=== PATIENT | male | born 1950 | race Two or more races ===

== ENCOUNTER → 2019-05-13 | Emergency (ER) | payer OTHER ==
[~2019-05-13] VITALS: Ht 167.6 cm; Wt 72.6 kg
[~2019-05-13] MED LIST: ALOG25TA OR; AMLO5TAB15 PO; ATEN-60 PO; ATOR40TA52 PO; BENA20TA14 PO; CARV6.2551 PO; CLOB0.055 TOP; CLOP75TA41 PO; FENO160T8 PO; FLUO0.059 TOP; GABA300C10 PO; GEMF600T7 PO; HYDR25TA4 PO; INSUINJ32 SC; KETOROLAC TROMETH 15 mg/ml 1ML VL IV ONE; MORPHINE SULFATE 4 MG/ML SYR/VIAL IV ONE; OMEGCAP2 OR; ONDANSETRON HCL 4 MG/2 ML VIAL IV ONE; cloNIDine HCL 0.1 MG TAB PO ONE; hydrALAZINE HCL 20 MG/ML VL IV ONE
[2019-05-13 15:47] LABS: Basophils # (auto) 0.1 10 ^3/uL (0-0.2); Lymphocytes # (auto) 1.8 10 ^3/uL (0.4-5.4); Mean Corpuscular Volume 93.5 fL (80.0-100.0); Monocytes # (auto) 1.6 10 ^3/uL (0-1.3); Neutrophils # (auto) 14.8 10 ^3/uL (1.6-8.6); White Blood Cell 18.6 10^3/uL (4.4-10.8)
[2019-05-13 15:50] LABS: Basophils % (auto) 0.8 % (0.0-2.0); Eosinophils # (auto) 0.2 10 ^3/uL (0-0.8); Eosinophils % (auto) 1.2 % (0.0-7.0); Hematocrit 44.4 % (41.0-53.0); Hemoglobin 14.8 g/dL (13.5-17.5); Lymphocytes % (auto) 9.7 % (10.0-50.0); Mean Corpuscular Hemoglobin 31.1 pg (28.0-32.0); Mean Corpuscular Hgb Conc. 33.3 g/dL (32.0-36.0); Monocytes % (auto) 8.4 % (0.0-12.0); Neutrophils % (auto) 79.9 % (37.0-80.0); Nucleated Red Blood Cells % 0.2 %; Platelet Count (auto) 514 10^3/uL (140-450); Red Blood Cells 4.75 10^6/uL (4.5-5.90); Red Cell Distribution Width 12.7 % (11.8-14.3)
[2019-05-13 16:07] LABS: Albumin 2.1 g/dL (3.4-5.0); Anion Gap 10 (5-15); Blood Urea Nitrogen 35 mg/dL (7-18); Calcium 9.3 mg/dL (8.5-10.1); Carbon Dioxide 22 mmol/L (21-32); Chloride 105 mmol/L (98-107); Glucose 264 mg/dL (74-106); Potassium 4.2 mmol/L (3.5-5.1); Sodium 137 mmol/L (136-145)
[2019-05-13 16:12] LABS: Alanine Aminotransferase 25 U/L (16-61); Alkaline Phosphatase 95 U/L (45-117); Aspartate Aminotransferase 21 U/L (15-37); BUN/Creatinine Ratio 29.9; Bilirubin, Total 0.5 mg/dL (0.2-1.0); GFR African American 80 mL/min; GFR Non-African American 66 mL/min; Total Protein 8.4 g/dL (6.4-8.2)
[2019-05-13 18:07] VITALS: BP 186/85
== END | disposition home or self-care (01) ==
LOC: EDBD 13:53 → EDUNIT# 13:53 → ER 13:57
DX: M54.42 Lumbago with sciatica, left side (principal); D72.829 Elevated white blood cell count, unspecified; I10 Essential (primary) hypertension; E11.9 Type 2 diabetes mellitus without complications; E78.5 Hyperlipidemia, unspecified; F17.210 Nicotine dependence, cigarettes, uncomplicated; Z86.73 Personal history of transient ischemic attack (TIA), and cerebral infarction without residual deficits; Z88.0 Allergy status to penicillin; Z79.01 Long term (current) use of anticoagulants; Z79.4 Long term (current) use of insulin; Z79.899 Other long term (current) drug therapy
CPT/HCPCS: 36415; 72131; 72192; 80053; 84484; 85025; 85379; 93005; 96374; 96375; 99285; J0360; J1885; J2270; J2405

== ENCOUNTER 2019-05-26 16:36 | Inpatient (IN) | payer OTHER ==
[~2019-05-26] VITALS: Ht 170.2 cm; Wt 96.3 kg
[~2019-05-26 16:36] MED LIST changes: -KETOROLAC TROMETH 15 mg/ml 1ML VL IV ONE; -MORPHINE SULFATE 4 MG/ML SYR/VIAL IV ONE; -ONDANSETRON HCL 4 MG/2 ML VIAL IV ONE; -cloNIDine HCL 0.1 MG TAB PO ONE; -hydrALAZINE HCL 20 MG/ML VL IV ONE
[2019-05-26 19:46] LABS: Mean Corpuscular Hemoglobin 31.8 pg (28.0-32.0)
[2019-05-26 19:47] LABS: Hematocrit 40.9 % (41.0-53.0); Hemoglobin 14.3 g/dL (13.5-17.5); Mean Corpuscular Volume 90.9 fL (80.0-100.0); Platelet Count (auto) 499 10^3/uL (140-450); Red Cell Distribution Width 12.9 % (11.8-14.3)
[2019-05-26 19:53] LABS: Basophils % (manual) 0 (0.0-2.0); Blast Cells 0; Metamyelocytes % 0; Myelocytes % 0; Promyelocytes % 0; Reactive Lymphocytes 0
[2019-05-26 19:57] LABS: Urine Amorphous Crystal FEW /hpf (None Seen); Urine Bacteria FEW /hpf (None Seen); Urine Blood TRACE /uL (Negative); Urine Mucus FEW (None Seen); Urine Specific Gravity 1.021 (1.001-1.035); Urine Sperm PRESENT /hpf (None Seen); Urine WBC 3 /hpf (0 - 3)
[2019-05-26 20:03] LABS: Calcium 9.7 mg/dL (8.5-10.1); Magnesium 2.4 mg/dL (1.6-2.6); Potassium 4.6 mmol/L (3.5-5.1)
[2019-05-26 20:07] LABS: BUN/Creatinine Ratio 50.5; Bilirubin, Total 0.4 mg/dL (0.2-1.0)
[2019-05-26 20:30] LABS: Band Neutrophils % (manual) 4; Eosinophils % (manual) 2 (0-7); Lymphocytes % (manual) 5 (10.0-50.0); Monocytes % (manual) 9 (0-12)
[2019-05-26] MEDS ORDERED: cefTRIAXone 1GM/50ML D5W 50 ML IV ONE (21:30)
[2019-05-26] MEDS ORDERED: HYDROcodone-ACET 10/325MG TAB PO ONE (22:00)
[2019-05-26] MEDS ORDERED: DEXTROSE (50%) 50ML SYRG IV PRN (22:15)
[2019-05-26] MEDS ORDERED: MORPHINE SULFATE 4 MG/ML SYR/VIAL IV PRN (22:15)
[2019-05-26] MEDS ORDERED: HYDROcodone-ACET 5/325MG TAB PO PRN (22:15)
[2019-05-26] MEDS ORDERED: ACETAMINOPHEN 325 MG TAB PO PRN (22:15)
[2019-05-26] MEDS ORDERED: ONDANSETRON HCL 4 MG/2 ML VIAL IV PRN (22:15)
[2019-05-26] MEDS ORDERED: DOCUSATE SOD 100 MG CAP PO PRN (22:15)
[2019-05-26] MEDS: SODIUM CHLORIDE 0.9% 1,000 ML IV SCH (22:31)
[2019-05-26 23:13] VITALS: BP 146/88
[2019-05-26 23:30] VITALS: BP 146/88
[2019-05-27] MEDS: InsuLIN REG 1unit/0.01ml Soln (100units/ml) SC SCH ×6 (00:26→19:56)
[2019-05-27] MEDS: ATORVASTATIN 20 MG TAB PO SCH ×2 (01:05→20:36)
[2019-05-27] MEDS: ACCU-CHEK COMFORT CURVE STRIP VI SCH ×6 (01:07→19:54)
[2019-05-27] MEDS: GABAPENTIN 300 MG CAP PO SCH ×4 (01:34→20:36)
[2019-05-27 04:49] VITALS: BP 150/89
[2019-05-27 05:49] LABS: Basophils # (auto) 0.1 10 ^3/uL (0-0.2); Basophils % (auto) 0.5 % (0.0-2.0); Eosinophils # (auto) 0.2 10 ^3/uL (0-0.8); Eosinophils % (auto) 0.9 % (0.0-7.0); Hematocrit 40.8 % (41.0-53.0); Hemoglobin 13.9 g/dL (13.5-17.5); Lymphocytes # (auto) 2.1 10 ^3/uL (0.4-5.4); Lymphocytes % (auto) 10.4 % (10.0-50.0); Mean Corpuscular Hemoglobin 31.4 pg (28.0-32.0); Mean Corpuscular Hgb Conc. 34.1 g/dL (32.0-36.0); Mean Corpuscular Volume 92.1 fL (80.0-100.0); Monocytes # (auto) 2.1 10 ^3/uL (0-1.3); Monocytes % (auto) 10.6 % (0.0-12.0); Neutrophils # (auto) 15.5 10 ^3/uL (1.6-8.6); Neutrophils % (auto) 77.6 % (37.0-80.0); Platelet Count (auto) 433 10^3/uL (140-450); Red Blood Cells 4.43 10^6/uL (4.5-5.90); Red Cell Distribution Width 12.6 % (11.8-14.3)
[2019-05-27 06:08] LABS: Potassium 4.1 mmol/L (3.5-5.1)
[2019-05-27 06:12] LABS: BUN/Creatinine Ratio 54.3; Calcium 9.7 mg/dL (8.5-10.1)
[2019-05-27] MEDS: HCTZ 25 MG TAB PO SCH (06:23)
[2019-05-27 08:51] VITALS: BP 148/81
[2019-05-27] MEDS: amLODIPine BESYLATE 5 MG TAB PO SCH (09:57)
[2019-05-27] MEDS: CLOPIDOGREL BISULFATE 75 MG TAB PO SCH (09:57)
[2019-05-27] MEDS: LISINOPRIL 20 MG TAB PO SCH (09:58)
[2019-05-27] MEDS ORDERED: cefTRIAXone 1GM/50ML D5W 50 ML IV SCH (10:00)
[2019-05-27] MEDS ORDERED: ATENOLOL 25 MG TAB PO SCH (10:00)
[2019-05-27] MEDS ORDERED: GEMFIBROZIL 600 MG TAB PO SCH (10:00)
[2019-05-27] MEDS ORDERED: CARVEDILOL 3.125 MG TAB PO SCH (10:00)
[2019-05-27 12:48] VITALS: BP 120/62
[2019-05-27] MEDS: SODIUM CHLORIDE 0.9% 1,000 ML IV SCH ×2 (14:27→23:43)
[2019-05-27] MEDS ORDERED: VANCOMYCIN PER PHARMACY 0 MG IV SCH (15:30)
[2019-05-27 16:17] LABS: % Iron Saturation 16.8 % (20-55)
[2019-05-27 16:45] VITALS: BP 129/75
[2019-05-27] MEDS: ENOXAPARIN SOD 40 MG/0.4 ML SYRINGE SC SCH (17:15)
[2019-05-27] MEDS: VANCOMYCIN 1GM/250ML 250 ML IV SCH (17:16)
[2019-05-27] MEDS: MORPHINE SULF INJ 2 MG/ML SYRINGE 1ML IV PRN (20:32)
[2019-05-27 22:00] VITALS: BP 142/75
[2019-05-28] MEDS: ACCU-CHEK COMFORT CURVE STRIP VI SCH ×7 (00:13→23:58)
[2019-05-28] MEDS: InsuLIN REG 1unit/0.01ml Soln (100units/ml) SC SCH ×6 (00:15→21:28)
[2019-05-28 05:00] VITALS: BP 149/76
[2019-05-28 05:32] LABS: Basophils # (auto) 0.2 10 ^3/uL (0-0.2); Basophils % (auto) 0.9 % (0.0-2.0); Eosinophils # (auto) 0.4 10 ^3/uL (0-0.8); Eosinophils % (auto) 2.2 % (0.0-7.0); Hemoglobin 12.3 g/dL (13.5-17.5); Lymphocytes # (auto) 2.5 10 ^3/uL (0.4-5.4); Lymphocytes % (auto) 14.4 % (10.0-50.0); Mean Corpuscular Hemoglobin 31.7 pg (28.0-32.0); Mean Corpuscular Hgb Conc. 34.3 g/dL (32.0-36.0); Mean Corpuscular Volume 92.4 fL (80.0-100.0); Monocytes # (auto) 2.1 10 ^3/uL (0-1.3); Monocytes % (auto) 11.7 % (0.0-12.0); Neutrophils # (auto) 12.4 10 ^3/uL (1.6-8.6); Neutrophils % (auto) 70.8 % (37.0-80.0); Platelet Count (auto) 368 10^3/uL (140-450); Red Blood Cells 3.89 10^6/uL (4.5-5.90); Red Cell Distribution Width 12.8 % (11.8-14.3); White Blood Cell 17.6 10^3/uL (4.4-10.8)
[2019-05-28 05:46] LABS: INR 1.12 (0.9-1.15); Partial Thromboplastin Time 31.9 sec (23.64-32.05)
[2019-05-28 05:48] LABS: Albumin 1.6 g/dL (3.4-5.0); BUN/Creatinine Ratio 42.9; Calcium 9.3 mg/dL (8.5-10.1); Magnesium 2.1 mg/dL (1.6-2.6); Potassium 3.8 mmol/L (3.5-5.1); Uric Acid 9.4 mg/dL (3.5-7.2)
[2019-05-28] MEDS: GABAPENTIN 300 MG CAP PO SCH ×3 (05:54→21:31)
[2019-05-28 05:56] LABS: Bilirubin, Total 0.3 mg/dL (0.2-1.0); CRP High Sensitivity 13.7 mg/dL (< 0.3); Phosphorus 4.2 mg/dL (2.5-4.90); Total Protein 6.9 g/dL (6.4-8.2)
[2019-05-28] MEDS: HCTZ 25 MG TAB PO SCH (05:56)
[2019-05-28 08:43] LABS: Ferritin 605.8 ng/mL (10-322); Free T4 (Free Thyroxine) 0.67 ng/dL (0.89-1.76)
[2019-05-28 08:44] LABS: Folate (Folic Acid) 5.92 ng/mL (5.38-24)
[2019-05-28 09:06] VITALS: BP 148/76
[2019-05-28] MEDS: VANCOMYCIN 1GM/250ML 250 ML IV SCH (10:42)
[2019-05-28] MEDS: METOPROLOL SUCCINATE XL 50 MG TAB PO SCH (10:42)
[2019-05-28] MEDS: ENOXAPARIN SOD 40 MG/0.4 ML SYRINGE SC SCH (10:42)
[2019-05-28] MEDS: CLOPIDOGREL BISULFATE 75 MG TAB PO SCH (10:42)
[2019-05-28] MEDS: LISINOPRIL 20 MG TAB PO SCH (10:43)
[2019-05-28] MEDS: amLODIPine BESYLATE 5 MG TAB PO SCH (10:43)
[2019-05-28] MEDS: MORPHINE SULF INJ 2 MG/ML SYRINGE 1ML IV PRN (11:09)
[2019-05-28 13:00] VITALS: BP 154/68
[2019-05-28 16:30] VITALS: BP 158/89
[2019-05-28] MEDS: Glucerna Carbsteady SHAKE Vanilla 8oz PO SCH (18:00)
[2019-05-28] MEDS: SODIUM CHLORIDE 0.9% 1,000 ML IV SCH (18:43)
[2019-05-28] MEDS ORDERED: LORazepam 2MG/ML-1ML VIAL IV PRN (21:30)
[2019-05-28] MEDS: ATORVASTATIN 20 MG TAB PO SCH (21:31)
[2019-05-28 22:00] VITALS: BP 163/84
[2019-05-29] MEDS: InsuLIN REG 1unit/0.01ml Soln (100units/ml) SC SCH ×6 (00:03→22:17)
[2019-05-29] MEDS: VANCOMYCIN 1GM/250ML 250 ML IV SCH ×2 (03:51→22:17)
[2019-05-29] MEDS: ACCU-CHEK COMFORT CURVE STRIP VI SCH ×5 (04:02→20:18)
[2019-05-29 05:00] VITALS: BP 147/81
[2019-05-29] MEDS: GABAPENTIN 300 MG CAP PO SCH ×3 (05:33→21:00)
[2019-05-29] MEDS: HCTZ 25 MG TAB PO SCH (06:45)
[2019-05-29 07:42] LABS: Basophils # (auto) 0.1 10 ^3/uL (0-0.2); Basophils % (auto) 0.7 % (0.0-2.0); Eosinophils # (auto) 0.5 10 ^3/uL (0-0.8); Eosinophils % (auto) 3.2 % (0.0-7.0); Hematocrit 34.5 % (41.0-53.0); Hemoglobin 11.6 g/dL (13.5-17.5); Lymphocytes # (auto) 2.5 10 ^3/uL (0.4-5.4); Lymphocytes % (auto) 17.1 % (10.0-50.0); Mean Corpuscular Hemoglobin 31.3 pg (28.0-32.0); Mean Corpuscular Hgb Conc. 33.8 g/dL (32.0-36.0); Mean Corpuscular Volume 92.6 fL (80.0-100.0); Monocytes # (auto) 1.9 10 ^3/uL (0-1.3); Monocytes % (auto) 13.2 % (0.0-12.0); Neutrophils # (auto) 9.7 10 ^3/uL (1.6-8.6); Neutrophils % (auto) 65.8 % (37.0-80.0); Platelet Count (auto) 369 10^3/uL (140-450); Red Blood Cells 3.72 10^6/uL (4.5-5.90); Red Cell Distribution Width 12.8 % (11.8-14.3); White Blood Cell 14.7 10^3/uL (4.4-10.8)
[2019-05-29] MEDS: SODIUM CHLORIDE 0.9% 1,000 ML IV SCH ×2 (07:50→22:17)
[2019-05-29 07:59] LABS: BUN/Creatinine Ratio 32.2; Potassium 3.6 mmol/L (3.5-5.1)
[2019-05-29] MEDS: Glucerna Carbsteady SHAKE Vanilla 8oz PO SCH ×3 (08:10→17:50)
[2019-05-29 09:00] VITALS: BP 153/78
[2019-05-29] MEDS: amLODIPine BESYLATE 5 MG TAB PO SCH (10:15)
[2019-05-29] MEDS: CLOPIDOGREL BISULFATE 75 MG TAB PO SCH (10:15)
[2019-05-29] MEDS: LISINOPRIL 20 MG TAB PO SCH (10:16)
[2019-05-29] MEDS: ENOXAPARIN SOD 40 MG/0.4 ML SYRINGE SC SCH (10:16)
[2019-05-29] MEDS: METOPROLOL SUCCINATE XL 50 MG TAB PO SCH (10:16)
[2019-05-29] MEDS ORDERED: LEVOTHYROXINE SODIUM 50 MCG TAB PO ONE (12:45)
[2019-05-29 13:00] VITALS: BP 159/77
[2019-05-29 17:00] VITALS: BP 170/71
[2019-05-29] MEDS ORDERED: COLCHICINE 0.6 MG CAP PO ONE (17:00)
[2019-05-29] MEDS: cefTRIAXone 1GM/50ML D5W 50 ML IV SCH ×2 (17:50→18:05)
[2019-05-29] MEDS: ALLOPURINOL 100 MG TAB PO SCH (17:50)
[2019-05-29] MEDS: COLCHICINE 0.6 MG CAP PO SCH (17:50)
[2019-05-29 20:00] VITALS: BP 157/94
[2019-05-29] MEDS ORDERED: IOHEXOL 350 MG/ML 100ML IJ ONE (20:23)
[2019-05-29] MEDS: MORPHINE SULF INJ 2 MG/ML SYRINGE 1ML IV PRN (21:00)
[2019-05-29] MEDS: METOPROLOL TARTRATE 50 MG TAB PO SCH (21:01)
[2019-05-29] MEDS: ATORVASTATIN 20 MG TAB PO SCH (21:01)
[2019-05-29 22:00] VITALS: BP 164/84
[2019-05-30] VITALS (7 sets, daily range): BP systolic 146–156; BP diastolic 73–85
[2019-05-30] MEDS: ENOXAPARIN SOD 100 MG/1 ML SYRINGE SC SCH ×2 (01:53→13:09)
[2019-05-30] MEDS: ACCU-CHEK COMFORT CURVE STRIP VI SCH ×6 (01:53→21:21)
[2019-05-30] MEDS: InsuLIN REG 1unit/0.01ml Soln (100units/ml) SC SCH ×6 (01:54→21:23)
[2019-05-30] MEDS: COLCHICINE 0.6 MG CAP PO SCH ×2 (05:11→17:10)
[2019-05-30 05:54] LABS: Basophils # (auto) 0.2 10 ^3/uL (0-0.2); Basophils % (auto) 1.2 % (0.0-2.0); Eosinophils # (auto) 0.6 10 ^3/uL (0-0.8); Eosinophils % (auto) 3.5 % (0.0-7.0); Hemoglobin 11.8 g/dL (13.5-17.5); Lymphocytes # (auto) 2.6 10 ^3/uL (0.4-5.4); Mean Corpuscular Hemoglobin 31.6 pg (28.0-32.0); Mean Corpuscular Hgb Conc. 34.8 g/dL (32.0-36.0); Mean Corpuscular Volume 90.9 fL (80.0-100.0); Monocytes # (auto) 1.8 10 ^3/uL (0-1.3); Neutrophils # (auto) 11.3 10 ^3/uL (1.6-8.6); Neutrophils % (auto) 68.3 % (37.0-80.0); Platelet Count (auto) 395 10^3/uL (140-450); Red Blood Cells 3.74 10^6/uL (4.5-5.90); Red Cell Distribution Width 12.5 % (11.8-14.3); White Blood Cell 16.5 10^3/uL (4.4-10.8)
[2019-05-30] MEDS: LEVOTHYROXINE SODIUM 50 MCG TAB PO SCH (05:55)
[2019-05-30] MEDS: HCTZ 25 MG TAB PO SCH (05:56)
[2019-05-30] MEDS: GABAPENTIN 300 MG CAP PO SCH ×3 (05:56→21:54)
[2019-05-30 06:23] LABS: Potassium 3.5 mmol/L (3.5-5.1)
[2019-05-30 06:27] LABS: BUN/Creatinine Ratio 26.3; Calcium 8.9 mg/dL (8.5-10.1)
[2019-05-30] MEDS: Glucerna Carbsteady SHAKE Vanilla 8oz PO SCH ×3 (07:59→17:10)
[2019-05-30] MEDS ORDERED: COLCHICINE 0.6 MG CAP PO SCH (10:00)
[2019-05-30] MEDS: cefTRIAXone 1GM/50ML D5W 50 ML IV SCH (10:09)
[2019-05-30] MEDS: LISINOPRIL 20 MG TAB PO SCH (10:10)
[2019-05-30] MEDS: METOPROLOL TARTRATE 50 MG TAB PO SCH ×2 (10:10→21:55)
[2019-05-30] MEDS: amLODIPine BESYLATE 5 MG TAB PO SCH (10:11)
[2019-05-30] MEDS: ALLOPURINOL 100 MG TAB PO SCH (10:11)
[2019-05-30] MEDS: MORPHINE SULF INJ 2 MG/ML SYRINGE 1ML IV PRN (12:21)
[2019-05-30] MEDS ORDERED: ENOXAPARIN SOD 100 MG/1 ML SYRINGE SC SCH (13:00)
[2019-05-30] MEDS: SODIUM CHLORIDE 0.9% 1,000 ML IV SCH (17:11)
[2019-05-30] MEDS: VANCOMYCIN 1GM/250ML 250 ML IV SCH (17:11)
[2019-05-30] MEDS: ATORVASTATIN 20 MG TAB PO SCH (21:54)
[2019-05-31] MEDS: ACCU-CHEK COMFORT CURVE STRIP VI SCH ×6 (00:48→20:49)
[2019-05-31] MEDS: ENOXAPARIN SOD 100 MG/1 ML SYRINGE SC SCH ×2 (00:49→13:15)
[2019-05-31] MEDS: SODIUM CHLORIDE 0.9% 1,000 ML IV SCH ×2 (02:20→16:43)
[2019-05-31] MEDS: InsuLIN REG 1unit/0.01ml Soln (100units/ml) SC SCH ×6 (04:39→20:50)
[2019-05-31 06:00] VITALS: BP 144/77
[2019-05-31] MEDS: COLCHICINE 0.6 MG CAP PO SCH ×2 (06:09→16:43)
[2019-05-31] MEDS: HCTZ 25 MG TAB PO SCH (06:09)
[2019-05-31] MEDS: GABAPENTIN 300 MG CAP PO SCH ×3 (06:09→21:45)
[2019-05-31] MEDS: LEVOTHYROXINE SODIUM 50 MCG TAB PO SCH (06:10)
[2019-05-31] MEDS: Glucerna Carbsteady SHAKE Vanilla 8oz PO SCH ×3 (07:56→16:43)
[2019-05-31 09:10] VITALS: BP 166/80
[2019-05-31] MEDS: LISINOPRIL 20 MG TAB PO SCH (09:20)
[2019-05-31] MEDS: ALLOPURINOL 100 MG TAB PO SCH (09:20)
[2019-05-31] MEDS: amLODIPine BESYLATE 5 MG TAB PO SCH (09:21)
[2019-05-31] MEDS: cefTRIAXone 1GM/50ML D5W 50 ML IV SCH (09:21)
[2019-05-31] MEDS ORDERED: METOPROLOL TARTRATE 25 MG TAB PO SCH (10:00)
[2019-05-31] MEDS: VANCOMYCIN 1GM/250ML 250 ML IV SCH (10:44)
[2019-05-31] MEDS ORDERED: hydrALAZINE HCL 20 MG/ML VL IV PRN (12:45)
[2019-05-31 13:00] VITALS: BP 159/81
[2019-05-31 13:30] VITALS: BP 144/85
[2019-05-31 17:07] VITALS: BP 148/78
[2019-05-31] MEDS: ATORVASTATIN 20 MG TAB PO SCH (21:45)
[2019-05-31] MEDS: METOPROLOL TARTRATE 50 MG TAB PO SCH (21:46)
[2019-05-31 22:00] VITALS: BP 150/80
[2019-06-01] MEDS: ENOXAPARIN SOD 100 MG/1 ML SYRINGE SC SCH ×2 (01:00→13:16)
[2019-06-01] MEDS: VANCOMYCIN 1GM/250ML 250 ML IV SCH (04:08)
[2019-06-01] MEDS: ACCU-CHEK COMFORT CURVE STRIP VI SCH ×4 (04:51→13:11)
[2019-06-01] MEDS: InsuLIN REG 1unit/0.01ml Soln (100units/ml) SC SCH ×4 (04:52→13:11)
[2019-06-01 05:44] VITALS: BP 151/77
[2019-06-01] MEDS: COLCHICINE 0.6 MG CAP PO SCH (05:44)
[2019-06-01] MEDS: GABAPENTIN 300 MG CAP PO SCH ×2 (05:45→13:16)
[2019-06-01] MEDS: LEVOTHYROXINE SODIUM 50 MCG TAB PO SCH (05:45)
[2019-06-01] MEDS: SODIUM CHLORIDE 0.9% 1,000 ML IV SCH (05:45)
[2019-06-01] MEDS: HCTZ 25 MG TAB PO SCH (05:46)
[2019-06-01 08:00] VITALS: BP 160/87
[2019-06-01] MEDS: Glucerna Carbsteady SHAKE Vanilla 8oz PO SCH ×2 (08:30→13:10)
[2019-06-01] MEDS: cefTRIAXone 1GM/50ML D5W 50 ML IV SCH (08:31)
[2019-06-01 09:00] VITALS: BP 165/87
[2019-06-01] MEDS: METOPROLOL TARTRATE 50 MG TAB PO SCH (09:09)
[2019-06-01] MEDS: amLODIPine BESYLATE 5 MG TAB PO SCH (09:09)
[2019-06-01] MEDS: ALLOPURINOL 100 MG TAB PO SCH (09:10)
[2019-06-01] MEDS: LISINOPRIL 20 MG TAB PO SCH (09:10)
[2019-06-01 13:00] VITALS: BP 149/70
== END 2019-06-01 15:00 | disposition home or self-care (01) | DRG 871 ==
LOC: ER 16:36 → EDBD 16:36 → EDUNIT# 16:36 → UNDOADMIN 16:37 → WEST WING 16:37 → OVERFLOW 16:37 → TELE-WESTW 05-28 12:31
PROVIDERS: ADMIT Hospitalist; ATTEND Internal Medicine
DX: A41.9 Sepsis, unspecified organism (principal); G93.41 Metabolic encephalopathy; E43 Unspecified severe protein-calorie malnutrition; I26.99 Other pulmonary embolism without acute cor pulmonale; N39.0 Urinary tract infection, site not specified; M00.9 Pyogenic arthritis, unspecified; I69.351 Hemiplegia and hemiparesis following cerebral infarction affecting right dominant side; J98.11 Atelectasis; M25.462 Effusion, left knee; I10 Essential (primary) hypertension; E66.9 Obesity, unspecified; E11.40 Type 2 diabetes mellitus with diabetic neuropathy, unspecified; M10.9 Gout, unspecified; R26.9 Unspecified abnormalities of gait and mobility; F02.80 Dementia in other diseases classified elsewhere, unspecified severity, without behavioral disturbance, psychotic disturbance, mood disturbance, and anxiety; E78.5 Hyperlipidemia, unspecified; E03.9 Hypothyroidism, unspecified; E11.21 Type 2 diabetes mellitus with diabetic nephropathy; R62.7 Adult failure to thrive; F32.9 Major depressive disorder, single episode, unspecified; F17.210 Nicotine dependence, cigarettes, uncomplicated; Z79.82 Long term (current) use of aspirin; Z74.01 Bed confinement status; Z79.84 Long term (current) use of oral hypoglycemic drugs; Z88.0 Allergy status to penicillin; Z79.899 Other long term (current) drug therapy; Z68.33 Body mass index [BMI] 33.0-33.9, adult
CPT/HCPCS: 36415; 70450; 71045; 71275; 72131; 73564; 73700; 80048; 80053; 80061; 80202; 81001; 82533; 82607; 82728; 82746; 82962; 83036; 83540; 83550; 83605; 83615; 83735; 84100; 84439; 84443; 84550; 85007; 85025; 85027; 85379; 85610; 85652; 85730; 86141; 86225; 86235; 87040; 87081; 87086; 93005; 93306; 93971; 93975; 95819; 96365; 96366; 96375; 97110; 97163; 97530; G0378; J0696; J1815

== ENCOUNTER 2019-08-03 19:29 | Inpatient (IN) | payer OTHER ==
[~2019-08-03] VITALS: Ht 167.6 cm; Wt 70.8 kg
[2019-08-03 21:54] LABS: Basophils # (auto) 0.1 10 ^3/uL (0-0.2); Basophils % (auto) 1.2 % (0.0-2.0); Eosinophils # (auto) 0.6 10 ^3/uL (0-0.8); Hematocrit 26.6 % (41.0-53.0); Hemoglobin 8.7 g/dL (13.5-17.5); Lymphocytes # (auto) 1.5 10 ^3/uL (0.4-5.4); Lymphocytes % (auto) 12.8 % (10.0-50.0); Mean Corpuscular Hemoglobin 30.7 pg (28.0-32.0); Mean Corpuscular Hgb Conc. 32.6 g/dL (32.0-36.0); Mean Corpuscular Volume 94.2 fL (80.0-100.0); Monocytes # (auto) 0.6 10 ^3/uL (0-1.3); Monocytes % (auto) 5.5 % (0.0-12.0); Neutrophils # (auto) 8.9 10 ^3/uL (1.6-8.6); Neutrophils % (auto) 75.5 % (37.0-80.0); Platelet Count (auto) 448 10^3/uL (140-450); Red Blood Cells 2.83 10^6/uL (4.5-5.90); White Blood Cell 11.7 10^3/uL (4.4-10.8)
[2019-08-03 22:10] LABS: Albumin 2.2 g/dL (3.4-5.0); Anion Gap 9 (5-15); Blood Urea Nitrogen 11 mg/dL (7-18); Calcium 7.9 mg/dL (8.5-10.1); Carbon Dioxide 20 mmol/L (21-32); Chloride 110 mmol/L (98-107); Glucose 136 mg/dL (74-106); Sodium 139 mmol/L (136-145)
[2019-08-03 22:11] LABS: Lactic Acid w/Reflex 2.4 mmol/L (0.4-2.0)
[2019-08-03 22:19] LABS: Alanine Aminotransferase 8 U/L (16-61); Alkaline Phosphatase 84 U/L (45-117); Aspartate Aminotransferase 9 U/L (15-37); BUN/Creatinine Ratio 10.8; Bilirubin, Total 0.2 mg/dL (0.2-1.0); GFR African American 93 mL/min; GFR Non-African American 77 mL/min; Total Protein 6.8 g/dL (6.4-8.2)
[2019-08-03 22:24] LABS: INR 1.11 (0.9-1.15); Partial Thromboplastin Time 26.4 sec (23.64-32.05)
[2019-08-03 22:32] LABS: Potassium 2.9 mmol/L (3.5-5.1)
[2019-08-03] MEDS ORDERED: cefTRIAXone 1GM/50ML D5W 50 ML IV ONE (23:00)
[2019-08-03] MEDS ORDERED: VANCOMYCIN 1GM/250ML 250 ML IV ONE (23:00)
[2019-08-03] MEDS ORDERED: POTASSIUM CHL 20MEQ/100ML 100 ML IV ONE (23:00)
[2019-08-03] MEDS ORDERED: POTASSIUM EFFERVESENT TAB 25 MEQ PO ONE (23:00)
[2019-08-03] MEDS ORDERED: SODIUM CHLORIDE 0.9% 1,000 ML IV ONE (23:00)
[2019-08-03 23:17] LABS: Urine Bacteria FEW /hpf (None Seen); Urine Blood Negative /uL (Negative); Urine Mucus FEW (None Seen); Urine Specific Gravity 1.016 (1.001-1.035); Urine WBC 1 /hpf (0 - 3)
[2019-08-04] MEDS ORDERED: SODIUM CHLORIDE 0.9% 1,000 ML IV SCH (02:36)
[2019-08-04] MEDS ORDERED: DEXTROSE (50%) 50ML SYRG IV PRN (02:45)
[2019-08-04] MEDS ORDERED: DOCUSATE SOD 100 MG CAP PO PRN (02:45)
[2019-08-04] MEDS ORDERED: ONDANSETRON HCL 4 MG/2 ML VIAL IV PRN (02:45)
[2019-08-04] MEDS ORDERED: ACETAMINOPHEN 325 MG TAB PO PRN (02:45)
--- NOTE | 2019-08-04 03:20 | NUR ---
TELE ADMIT FROM ER: ASSUMED CARE OF PATIENT. PATIENT ARRIVED FROM ER, NO SBAR RECEIVED. PATIENT ORIENTED TO PRIMARY RN, UNIT, ROOM, POLICY, ALL CALL LIGHT. BED IS IN LOWEST, LOCKED POSITION, TWO SIDE RAILS RAISED, BED ALARM ACTIVATED FOR SAFETY AND CALL GUERRA WITHIN REACH. NIEVES HUNG BELOW THE BLADDER AND DRAINING TO GRAVITY. RESPIRATIONS EVEN AND UNLABORED AND PATIENT CONNECTED TO TELE BOX WITH CURRENT READING 72 BPM. INSTRUCTED ON POC AND ENCOURAGED TO USE CALL LIGHT FOR ASSISTANCE, ALL QUESTIONS AND CONCERNS ADDRESSED AT THIS TIME, PATIENT VERBALIZES UNDERSTANDING.
[2019-08-04] MEDS: ACCU-CHEK COMFORT CURVE STRIP VI SCH ×6 (04:00→23:53)
[2019-08-04] MEDS: InsuLIN REG 1unit/0.01ml Soln (100units/ml) SC SCH ×6 (04:36→23:53)
[2019-08-04 05:00] VITALS: BP 135/67
[2019-08-04] MEDS: POTASSIUM CHL 20MEQ/100ML 100 ML IV SCH ×2 (05:02→06:32)
[2019-08-04 06:24] LABS: Eosinophils # (auto) 0.5 10 ^3/uL (0-0.8); Hemoglobin 8.1 g/dL (13.5-17.5); Lymphocytes # (auto) 1.7 10 ^3/uL (0.4-5.4); Monocytes # (auto) 0.7 10 ^3/uL (0-1.3); White Blood Cell 9.7 10^3/uL (4.4-10.8)
[2019-08-04 06:26] LABS: Basophils # (auto) 0.1 10 ^3/uL (0-0.2); Basophils % (auto) 1.2 % (0.0-2.0); Hematocrit 23.7 % (41.0-53.0); Lymphocytes % (auto) 17.3 % (10.0-50.0); Mean Corpuscular Hemoglobin 31.9 pg (28.0-32.0); Mean Corpuscular Hgb Conc. 34.1 g/dL (32.0-36.0); Mean Corpuscular Volume 93.5 fL (80.0-100.0); Monocytes % (auto) 7.5 % (0.0-12.0); Neutrophils # (auto) 6.7 10 ^3/uL (1.6-8.6); Platelet Count (auto) 384 10^3/uL (140-450); Red Blood Cells 2.53 10^6/uL (4.5-5.90); Red Cell Distribution Width 16.7 % (11.8-14.3)
[2019-08-04] MEDS: GABAPENTIN 300 MG CAP PO SCH ×3 (06:26→22:29)
[2019-08-04] MEDS: CLINDAMYCIN 600MG IV 50 ML IV SCH ×4 (06:26→23:53)
[2019-08-04] MEDS: HCTZ 25 MG TAB PO SCH (06:32)
[2019-08-04 06:42] LABS: Calcium 7.5 mg/dL (8.5-10.1); Potassium 3.9 mmol/L (3.5-5.1)
[2019-08-04 06:45] LABS: BUN/Creatinine Ratio 10.2
[2019-08-04 09:00] VITALS: BP 131/69
[2019-08-04] MEDS: FENOFIBRATE 160MG TAB PO SCH (09:51)
[2019-08-04] MEDS ORDERED: ATENOLOL 25 MG TAB PO SCH (10:00)
[2019-08-04] MEDS: CARVEDILOL 3.125 MG TAB PO SCH ×2 (10:12→22:28)
[2019-08-04] MEDS: levoFLOXacin 500MG 100 ML IV SCH (10:12)
[2019-08-04] MEDS: ATORVASTATIN 20 MG TAB PO SCH (10:13)
[2019-08-04] MEDS: GEMFIBROZIL 600 MG TAB PO SCH ×2 (10:13→22:28)
[2019-08-04] MEDS: amLODIPine BESYLATE 5 MG TAB PO SCH (10:15)
[2019-08-04] MEDS: BENAZEPRIL HCL 10 MG TAB PO SCH ×2 (10:15→22:00)
[2019-08-04] MEDS: CLOPIDOGREL BISULFATE 75 MG TAB PO SCH (10:16)
--- NOTE | 2019-08-04 12:30 | NUR ---
WOUND CARE NOTE: IN TO SEE PATIENT AT THIS TIME PER WOUND CARE CONSULT REQUEST. PATIENT NOTED TO HAVE WOUNDS UPON ADMIT. ALL WOUNDS PHOTOGRAPHED AT THAT TIME PER PROTOCOL BY BEDSIDE NURSE. PATIENT ADMITTED TO [facility] WITH DIAGNOSIS OF BLE CELLULITIS. PATIENT HAS CURRENT DEEJAY SCORE OF 9. PATIENT IS MAX ASSIST FOR HIS ADL'S, STATES HE'S BEDBOUND D/T HISTORY OF CVA. PATIENT IS NOTED TO HAVE MULTIPLE PRESSURE INJURIES, INCLUDING STAGE 4 PRESSURE ULCER TO RIGHT SACRUM, STAGE 3 TO LEFT SACRUM, STAGE 4 TO RIGHT HIP, UNSTAGEABLE TO RIGHT LATERAL CALF, AND LEFT HEEL, DTI TO RIGHT HEEL, AND ANKLE. ALL WOUND STATS CAN BE FOUND WITHIN WOUND ASSESSMENT INTERVENTION, LINKED TO THIS NOTE. CLEANSED AND DRESSED ALL WOUNDS PER MD ORDER. ADVISED BEDSIDE NURSE TO PLACE SANDRA FOAM BOOTS TO BILATERAL HEELS. ORDERED SPECIALTY AIR MATTRESS. PATIENT TO BE PLACED, PENDING DELIVERY BY SHIKHA OROPEZA. SKIN/WOUND CARE PLAN UPDATED. RECOMMEND: FREQUENT TURN SCHEDULE Q 2 HOURS, PRN CONDITION PERMITS, WITH PRESSURE REDISTRIBUTION USING PILLOWS/WEDGES, DAILY/PRN DRESSING CHANGES TO WOUNDS ON SACRUM, RIGHT HIP, AND RIGHT CALF. SANDRA FOAM BOOTS TO BILATERAL HEELS, SPECIALTY AIR MATTRESS, DIETARY CONSULT, SKIN/WOUND CARE PLAN, CONTINUED MONITORING BY WOUND CARE TEAM. Addendum: 08/04/19 at 1908 by Twila Noe RN Amended: Links added.
[2019-08-04 13:00] VITALS: BP 136/71
[2019-08-04 17:00] VITALS: BP 120/63
[2019-08-04] MEDS: HYDROcodone-ACET 5/325MG TAB PO PRN (21:13)
--- NOTE | 2019-08-04 21:30 | NUR ---
PATIENT TRANSFERRED OVER TO AIR MATTRESS AND BOOTS APPLIED TO BILATERAL FEET.
[2019-08-04 21:54] VITALS: BP 125/72
[2019-08-05] MEDS: InsuLIN REG 1unit/0.01ml Soln (100units/ml) SC SCH ×6 (04:00→23:44)
[2019-08-05] MEDS: ACCU-CHEK COMFORT CURVE STRIP VI SCH ×6 (04:23→23:44)
--- NOTE | 2019-08-05 04:23 | NUR ---
SACRAL DRESSINGS CHANGED DUE TO SOILING.
[2019-08-05 05:00] VITALS: BP 124/72
[2019-08-05] MEDS: CLINDAMYCIN 600MG IV 50 ML IV SCH ×4 (06:29→23:31)
[2019-08-05] MEDS: FUROSEMIDE 20 MG/2 ML VIAL IV SCH ×2 (06:30→17:57)
[2019-08-05] MEDS: HCTZ 25 MG TAB PO SCH (06:30)
[2019-08-05] MEDS: GABAPENTIN 300 MG CAP PO SCH ×3 (06:31→22:40)
[2019-08-05] MEDS: MORPHINE SULF INJ 2 MG/ML SYRINGE 1ML IV PRN (06:40)
--- NOTE | 2019-08-05 07:30 | NUR ---
Opening Shift Note Assumed care of patient, awake and alert. No S/S of distress/SOB. Pain management options discussed with patient. Instructed on POC and to call for assist PRN, will continue to monitor for changes Q1hr and PRN.
[2019-08-05 08:00] VITALS: BP 125/67
[2019-08-05 09:00] VITALS: BP 125/67
[2019-08-05] MEDS: levoFLOXacin 500MG 100 ML IV SCH (09:46)
[2019-08-05] MEDS: CARVEDILOL 3.125 MG TAB PO SCH ×2 (09:46→22:40)
[2019-08-05] MEDS: FENOFIBRATE 160MG TAB PO SCH (09:46)
[2019-08-05] MEDS: BENAZEPRIL HCL 10 MG TAB PO SCH ×2 (09:47→22:00)
[2019-08-05] MEDS: GEMFIBROZIL 600 MG TAB PO SCH ×2 (09:47→22:40)
[2019-08-05] MEDS: ATORVASTATIN 20 MG TAB PO SCH (09:47)
[2019-08-05] MEDS: POTASSIUM CHL 20 Meq TABLET PO SCH (09:47)
[2019-08-05] MEDS: amLODIPine BESYLATE 5 MG TAB PO SCH (09:48)
[2019-08-05] MEDS: CLOPIDOGREL BISULFATE 75 MG TAB PO SCH (09:48)
[2019-08-05 14:31] VITALS: BP 113/73
[2019-08-05 16:29] VITALS: BP 101/58
[2019-08-05 22:00] VITALS: BP 123/62
[2019-08-06] MEDS: InsuLIN REG 1unit/0.01ml Soln (100units/ml) SC SCH ×5 (04:00→20:59)
[2019-08-06] MEDS: ACCU-CHEK COMFORT CURVE STRIP VI SCH ×5 (04:26→20:59)
[2019-08-06 05:00] VITALS: BP 123/73
[2019-08-06 05:20] LABS: Basophils # (auto) 0.1 10 ^3/uL (0-0.2); Basophils % (auto) 1.2 % (0.0-2.0); Eosinophils # (auto) 0.7 10 ^3/uL (0-0.8); Eosinophils % (auto) 10.6 % (0.0-7.0); Hematocrit 24.7 % (41.0-53.0); Hemoglobin 8.4 g/dL (13.5-17.5); Lymphocytes # (auto) 1.7 10 ^3/uL (0.4-5.4); Lymphocytes % (auto) 25.5 % (10.0-50.0); Mean Corpuscular Hemoglobin 32.2 pg (28.0-32.0); Mean Corpuscular Hgb Conc. 34.1 g/dL (32.0-36.0); Mean Corpuscular Volume 94.6 fL (80.0-100.0); Monocytes # (auto) 0.7 10 ^3/uL (0-1.3); Monocytes % (auto) 9.9 % (0.0-12.0); Neutrophils # (auto) 3.6 10 ^3/uL (1.6-8.6); Neutrophils % (auto) 52.8 % (37.0-80.0); Platelet Count (auto) 389 10^3/uL (140-450); Red Blood Cells 2.61 10^6/uL (4.5-5.90); Red Cell Distribution Width 16.9 % (11.8-14.3); White Blood Cell 6.8 10^3/uL (4.4-10.8)
[2019-08-06 05:45] LABS: Albumin 2.1 g/dL (3.4-5.0); Calcium 7.7 mg/dL (8.5-10.1); Magnesium 1.8 mg/dL (1.6-2.6); Potassium 4.1 mmol/L (3.5-5.1)
[2019-08-06 05:49] LABS: BUN/Creatinine Ratio 8.7; Bilirubin, Total 0.4 mg/dL (0.2-1.0); INR 1.09 (0.9-1.15); Partial Thromboplastin Time 29.6 sec (23.64-32.05); Phosphorus 3.3 mg/dL (2.5-4.90); Total Protein 6.2 g/dL (6.4-8.2)
[2019-08-06] MEDS: CLINDAMYCIN 600MG IV 50 ML IV SCH ×2 (06:20→12:34)
[2019-08-06] MEDS: FUROSEMIDE 20 MG/2 ML VIAL IV SCH (06:21)
[2019-08-06] MEDS: GABAPENTIN 300 MG CAP PO SCH ×5 (06:21→21:40)
[2019-08-06] MEDS: HCTZ 25 MG TAB PO SCH (07:00)
--- NOTE | 2019-08-06 07:00 | NUR ---
Opening Shift Note Received report on the patient. Awake lying in bed. Patient shows no signs of distress at this time. Discussed the plan with the patient. Bed in lowest position, side rails up x2, and the call light is within reach.
[2019-08-06 09:00] VITALS: BP 131/65
[2019-08-06] MEDS: levoFLOXacin 500MG 100 ML IV SCH (09:39)
[2019-08-06] MEDS: FENOFIBRATE 160MG TAB PO SCH (09:39)
[2019-08-06] MEDS: CARVEDILOL 3.125 MG TAB PO SCH ×2 (09:42→21:39)
[2019-08-06] MEDS: POTASSIUM CHL 20 Meq TABLET PO SCH (09:42)
[2019-08-06] MEDS: ATORVASTATIN 20 MG TAB PO SCH (09:42)
[2019-08-06] MEDS: GEMFIBROZIL 600 MG TAB PO SCH ×2 (09:44→21:39)
[2019-08-06] MEDS: BENAZEPRIL HCL 10 MG TAB PO SCH (09:44)
[2019-08-06] MEDS: CLOPIDOGREL BISULFATE 75 MG TAB PO SCH (09:44)
[2019-08-06] MEDS: amLODIPine BESYLATE 5 MG TAB PO SCH (09:44)
[2019-08-06 13:00] VITALS: BP 125/65
[2019-08-06] MEDS ORDERED: LORazepam 2MG/ML-1ML VIAL IV PRN (14:00)
[2019-08-06] MEDS ORDERED: ENOXAPARIN SOD 40 MG/0.4 ML SYRINGE SC ONE (14:15)
--- NOTE | 2019-08-06 15:46 | NUR ---
EEG- ELECTROENCEPHALOGRAM COMPLETED ON 08/06/2019 @ 14:44
[2019-08-06] MEDS ORDERED: MAGNESIUM OXIDE 400 MG TAB PO ONE (16:00)
[2019-08-06] MEDS ORDERED: IOHEXOL 350 MG/ML 100ML IJ ONE (16:22)
[2019-08-06] MEDS: ENOXAPARIN SOD 40 MG/0.4 ML SYRINGE SC ONE ×2 (16:37→16:44)
[2019-08-06 17:00] VITALS: BP 111/69
--- NOTE | 2019-08-06 18:38 | NUR ---
Patient refused wound care because "it is too painful".
--- NOTE | 2019-08-06 19:09 | NUR ---
Paged Dr. Borja regarding the results of the carotid duplex and venous study. Awaiting a call back.
[2019-08-06] MEDS: ENOXAPARIN SOD 80 MG/0.8ML SYRINGE SC SCH (21:40)
[2019-08-06 21:55] VITALS: BP 136/68
[2019-08-07] MEDS: InsuLIN REG 1unit/0.01ml Soln (100units/ml) SC SCH ×6 (00:13→22:11)
[2019-08-07] MEDS: ACCU-CHEK COMFORT CURVE STRIP VI SCH ×6 (00:13→22:14)
[2019-08-07] MEDS: HYDROcodone-ACET 5/325MG TAB PO PRN (00:15)
[2019-08-07 05:00] VITALS: BP 114/73
[2019-08-07] MEDS: GABAPENTIN 300 MG CAP PO SCH ×4 (06:23→22:14)
[2019-08-07] MEDS: HCTZ 25 MG TAB PO SCH (06:24)
--- NOTE | 2019-08-07 07:36 | NUR ---
Dr Hein at bedside. New orders received.
[2019-08-07 09:00] VITALS: BP 131/70
[2019-08-07] MEDS: FENOFIBRATE 160MG TAB PO SCH (09:59)
[2019-08-07] MEDS: CARVEDILOL 3.125 MG TAB PO SCH ×2 (09:59→22:14)
[2019-08-07] MEDS ORDERED: ENOXAPARIN SOD 40 MG/0.4 ML SYRINGE SC SCH (10:00)
[2019-08-07] MEDS: ATORVASTATIN 20 MG TAB PO SCH (10:00)
[2019-08-07] MEDS: GEMFIBROZIL 600 MG TAB PO SCH ×2 (10:02→22:14)
[2019-08-07] MEDS: amLODIPine BESYLATE 5 MG TAB PO SCH (10:02)
[2019-08-07] MEDS: ENOXAPARIN SOD 80 MG/0.8ML SYRINGE SC SCH ×2 (10:03→22:14)
--- NOTE | 2019-08-07 10:47 | NUR ---
Wound care completed on the patient.
--- NOTE | 2019-08-07 10:48 | NUR ---
Spoke to Aj WALL INSULATION SPRAYER regarding carotid US. New orders received.
[2019-08-07 11:36] LABS: Basophils # (auto) 0.1 10 ^3/uL (0-0.2); Basophils % (auto) 1.3 % (0.0-2.0); Eosinophils # (auto) 0.9 10 ^3/uL (0-0.8); Eosinophils % (auto) 11.2 % (0.0-7.0); Hematocrit 26.7 % (41.0-53.0); Hemoglobin 9.1 g/dL (13.5-17.5); Lymphocytes % (auto) 25.9 % (10.0-50.0); Mean Corpuscular Hemoglobin 32.1 pg (28.0-32.0); Mean Corpuscular Volume 94.4 fL (80.0-100.0); Monocytes # (auto) 0.8 10 ^3/uL (0-1.3); Neutrophils # (auto) 3.9 10 ^3/uL (1.6-8.6); Neutrophils % (auto) 51.6 % (37.0-80.0); Nucleated Red Blood Cells % 0.1 %; Platelet Count (auto) 427 10^3/uL (140-450); Red Blood Cells 2.83 10^6/uL (4.5-5.90); Red Cell Distribution Width 17.3 % (11.8-14.3); White Blood Cell 7.6 10^3/uL (4.4-10.8)
[2019-08-07 11:59] LABS: Calcium 8.1 mg/dL (8.5-10.1); Potassium 4.2 mmol/L (3.5-5.1)
[2019-08-07 12:01] LABS: BUN/Creatinine Ratio 12.8
[2019-08-07] MEDS ORDERED: IOHEXOL 350 MG/ML 100ML IJ ONE (12:35)
[2019-08-07] MEDS ORDERED: IODIXANOL 320MG/ML 100ML BTL IV ONE (12:36)
[2019-08-07 13:00] VITALS: BP 119/69
[2019-08-07] MEDS: MORPHINE SULF INJ 2 MG/ML SYRINGE 1ML IV PRN (13:14)
--- NOTE | 2019-08-07 14:52 | NUR ---
Nutrition Assessment Notes Please refer to link for full assessment notes. Est Energy needs: 9998-9702 kcals (20-23 kcal/kgBW) Est Protein needs: 79-87 gms/day (1.0-1.1 gm/kgBW) Will continue to monitor and reassess prn. Addendum: 08/07/19 at [address] Amended: Links added.
[2019-08-07] MEDS ORDERED: levoFLOXacin 500 MG TAB PO ONE (16:00)
[2019-08-07 17:00] VITALS: BP 133/65
[2019-08-07 22:00] VITALS: BP 109/63
[2019-08-07] MEDS: metroNIDAZOLE 500 MG TAB PO SCH (22:14)
[2019-08-08 05:00] VITALS: BP 113/60
[2019-08-08 05:29] LABS: Basophils # (auto) 0.1 10 ^3/uL (0-0.2); Basophils % (auto) 1.3 % (0.0-2.0); Eosinophils # (auto) 0.9 10 ^3/uL (0-0.8); Eosinophils % (auto) 11.2 % (0.0-7.0); Hemoglobin 8.5 g/dL (13.5-17.5); Lymphocytes # (auto) 1.8 10 ^3/uL (0.4-5.4); Lymphocytes % (auto) 22.4 % (10.0-50.0); Mean Corpuscular Hemoglobin 31.9 pg (28.0-32.0); Mean Corpuscular Hgb Conc. 33.8 g/dL (32.0-36.0); Mean Corpuscular Volume 94.5 fL (80.0-100.0); Monocytes # (auto) 0.9 10 ^3/uL (0-1.3); Monocytes % (auto) 11.2 % (0.0-12.0); Neutrophils # (auto) 4.2 10 ^3/uL (1.6-8.6); Neutrophils % (auto) 53.9 % (37.0-80.0); Platelet Count (auto) 407 10^3/uL (140-450); Red Blood Cells 2.65 10^6/uL (4.5-5.90); Red Cell Distribution Width 17.3 % (11.8-14.3); White Blood Cell 7.8 10^3/uL (4.4-10.8)
[2019-08-08 05:52] LABS: Potassium 4.2 mmol/L (3.5-5.1)
[2019-08-08 06:02] LABS: BUN/Creatinine Ratio 10.5; Calcium 7.8 mg/dL (8.5-10.1)
[2019-08-08] MEDS: InsuLIN REG 1unit/0.01ml Soln (100units/ml) SC SCH ×4 (06:12→22:06)
[2019-08-08] MEDS: ACCU-CHEK COMFORT CURVE STRIP VI SCH ×4 (06:12→22:05)
[2019-08-08] MEDS: GABAPENTIN 300 MG CAP PO SCH ×4 (06:16→22:05)
[2019-08-08] MEDS: HCTZ 25 MG TAB PO SCH (06:16)
[2019-08-08 08:56] VITALS: BP 100/61
--- NOTE | 2019-08-08 09:16 | NUR ---
Vannessa from [facility] called and wanted to know if the patient would be resuming home health soon. Told her I did not know when the patient would be discharged. Vannessa would like a call when the patient gets discharged and IV antibiotics are needed. Phone number is .
[2019-08-08] MEDS: amLODIPine BESYLATE 5 MG TAB PO SCH (10:00)
[2019-08-08] MEDS: CARVEDILOL 3.125 MG TAB PO SCH ×2 (10:00→22:00)
[2019-08-08] MEDS: FENOFIBRATE 160MG TAB PO SCH (10:00)
[2019-08-08] MEDS: ATORVASTATIN 20 MG TAB PO SCH (10:04)
[2019-08-08] MEDS: metroNIDAZOLE 500 MG TAB PO SCH ×2 (10:04→22:04)
[2019-08-08] MEDS: levoFLOXacin 500 MG TAB PO SCH (10:04)
[2019-08-08] MEDS: GEMFIBROZIL 600 MG TAB PO SCH ×2 (10:05→22:05)
--- NOTE | 2019-08-08 11:09 | NUR ---
Called CT to find out when the patient would go for the CT angio of the neck. Was told that it would be tomorrow because the patient received contrast yesterday 08/07/19 and that Aj SPARROW was already advised.
[2019-08-08] MEDS: ENOXAPARIN SOD 80 MG/0.8ML SYRINGE SC SCH ×2 (11:38→22:05)
[2019-08-08 13:00] VITALS: BP 114/70
[2019-08-08 17:00] VITALS: BP 95/59
--- NOTE | 2019-08-08 19:30 | NUR ---
Opening Shift Note Assumed care of patient, awake and alert. No S/S of distress/SOB or pain. Instructed on POC and to call for assist PRN. Bed in lowest locked position, call light within reach, side rails up x2, fall precautions in place. Will continue to monitor for changes Q1hr and PRN.
--- NOTE | 2019-08-08 22:50 | NUR ---
Wound care Patient had small BM, partial linen change done. All dressings changed at this time per MD order, patient tolerated well. Continue care.
[2019-08-08 23:14] VITALS: BP 105/56
[2019-08-09 05:12] VITALS: BP 110/67
[2019-08-09] MEDS: GABAPENTIN 300 MG CAP PO SCH ×4 (06:33→22:30)
[2019-08-09] MEDS: ACCU-CHEK COMFORT CURVE STRIP VI SCH ×4 (06:33→22:31)
[2019-08-09] MEDS: HCTZ 25 MG TAB PO SCH (06:33)
[2019-08-09] MEDS: InsuLIN REG 1unit/0.01ml Soln (100units/ml) SC SCH ×4 (06:34→22:57)
--- NOTE | 2019-08-09 07:30 | NUR ---
Opening Shift Note Assumed care of patient, awake and alert. No S/S of distress/SOB or pain. Instructed on POC and to call for assist PRN, will continue to monitor for changes Q1hr and PRN. Fall precautions in place per safety protocol.
[2019-08-09 08:30] LABS: BUN/Creatinine Ratio 12.4; Calcium 8.2 mg/dL (8.5-10.1); Potassium 3.8 mmol/L (3.5-5.1)
[2019-08-09] MEDS ORDERED: ADENOSINE 58 MG in GIVE UN-DILUTED 0 ML IV ONE (08:30)
[2019-08-09 09:30] VITALS: BP 102/64
[2019-08-09] MEDS: FENOFIBRATE 160MG TAB PO SCH (10:00)
[2019-08-09] MEDS: CARVEDILOL 3.125 MG TAB PO SCH ×2 (10:00→22:29)
[2019-08-09] MEDS: amLODIPine BESYLATE 5 MG TAB PO SCH (10:00)
[2019-08-09] MEDS: levoFLOXacin 500 MG TAB PO SCH (10:27)
[2019-08-09] MEDS: GEMFIBROZIL 600 MG TAB PO SCH ×2 (10:27→22:30)
[2019-08-09] MEDS: metroNIDAZOLE 500 MG TAB PO SCH ×2 (10:27→22:29)
[2019-08-09] MEDS: ATORVASTATIN 20 MG TAB PO SCH (10:27)
--- NOTE | 2019-08-09 10:30 | NUR ---
Hospitalist MD Shelley at bedside aware of patient status. No new orders received at this time. Will cont to monitor patient.
[2019-08-09] MEDS: ENOXAPARIN SOD 80 MG/0.8ML SYRINGE SC SCH ×2 (10:48→22:31)
[2019-08-09 13:00] VITALS: BP 110/74
[2019-08-09] MEDS: LINEZOLID 600MG TABLET PO SCH ×2 (13:03→22:30)
--- NOTE | 2019-08-09 14:00 | NUR ---
WOUND Wound dressings changed per MD orders. Patient tolerated well. Will cont to monitor patient.
--- NOTE | 2019-08-09 14:30 | NUR ---
Cardio at bedside OPERATIONS LABEL CLERK Rocha at bedside, aware of patient status. Orders to obtain consents for heart cath tomorrow received. Will carry out new orders and will cont to monitor patient
[2019-08-09 17:00] VITALS: BP 106/70
--- NOTE | 2019-08-09 19:21 | NUR ---
Opening Shift Note Assumed care of patient, awake, alert and oriented x4, on room air with even and unlabored respirations, no S/S of distress/SOB or pain. Bed in lowest locked position, side rails up x2, and call light within reach. Instructed on POC and to call for assist PRN, will continue to monitor for changes Q1hr and PRN.
[2019-08-09 21:30] VITALS: BP 119/62
[2019-08-09] MEDS ORDERED: SODIUM CHLORIDE 0.9% 500 ML IV ONE (23:59)
[2019-08-10 04:30] VITALS: BP 140/78
[2019-08-10] MEDS: GABAPENTIN 300 MG CAP PO SCH ×4 (06:19→22:24)
[2019-08-10 06:51] LABS: Basophils # (auto) 0.1 10 ^3/uL (0-0.2); Eosinophils # (auto) 0.5 10 ^3/uL (0-0.8); Hematocrit 24.8 % (41.0-53.0); Hemoglobin 8.4 g/dL (13.5-17.5); Red Cell Distribution Width 16.8 % (11.8-14.3)
[2019-08-10 06:53] LABS: Basophils % (auto) 1.1 % (0.0-2.0); Eosinophils % (auto) 6.1 % (0.0-7.0); Lymphocytes # (auto) 1.5 10 ^3/uL (0.4-5.4); Lymphocytes % (auto) 19.4 % (10.0-50.0); Mean Corpuscular Hemoglobin 31.7 pg (28.0-32.0); Mean Corpuscular Hgb Conc. 33.7 g/dL (32.0-36.0); Mean Corpuscular Volume 93.8 fL (80.0-100.0); Monocytes # (auto) 0.9 10 ^3/uL (0-1.3); Monocytes % (auto) 11.5 % (0.0-12.0); Neutrophils # (auto) 4.9 10 ^3/uL (1.6-8.6); Neutrophils % (auto) 61.9 % (37.0-80.0); Platelet Count (auto) 431 10^3/uL (140-450); Red Blood Cells 2.64 10^6/uL (4.5-5.90)
[2019-08-10] MEDS: InsuLIN REG 1unit/0.01ml Soln (100units/ml) SC SCH ×4 (07:00→22:00)
[2019-08-10] MEDS: HCTZ 25 MG TAB PO SCH (07:01)
[2019-08-10] MEDS: ACCU-CHEK COMFORT CURVE STRIP VI SCH ×4 (07:02→22:24)
[2019-08-10 07:05] LABS: INR 1.16 (0.9-1.15); Partial Thromboplastin Time 41.1 sec (23.64-32.05)
[2019-08-10 07:08] LABS: Albumin 2.1 g/dL (3.4-5.0); Anion Gap 8 (5-15); BUN/Creatinine Ratio 13.9; Blood Urea Nitrogen 22 mg/dL (7-18); Carbon Dioxide 25 mmol/L (21-32); Chloride 103 mmol/L (98-107); GFR African American 56 mL/min; GFR Non-African American 47 mL/min; Glucose 129 mg/dL (74-106); Potassium 3.5 mmol/L (3.5-5.1); Sodium 136 mmol/L (136-145)
[2019-08-10 07:11] LABS: Alanine Aminotransferase < 6 U/L (16-61); Alkaline Phosphatase 67 U/L (45-117); Aspartate Aminotransferase 10 U/L (15-37); Bilirubin, Total 0.2 mg/dL (0.2-1.0); Total Protein 6.2 g/dL (6.4-8.2)
[2019-08-10 09:00] VITALS: BP 117/68
[2019-08-10] MEDS ORDERED: LORazepam 2MG/ML-1ML VIAL IV PRN (09:00)
--- NOTE | 2019-08-10 09:07 | NUR ---
Transport Patient transported to clam bed laborer for procedure via bed, no distress, sob, or pain noted at time of departure. Will resume care when return to unit.
[2019-08-10] MEDS: FENOFIBRATE 160MG TAB PO SCH (10:00)
[2019-08-10] MEDS: CARVEDILOL 3.125 MG TAB PO SCH ×2 (10:00→22:00)
[2019-08-10] MEDS: amLODIPine BESYLATE 5 MG TAB PO SCH (10:00)
[2019-08-10] MEDS: ENOXAPARIN SOD 80 MG/0.8ML SYRINGE SC SCH (10:00)
[2019-08-10] MEDS ORDERED: ANGIOMAX 250 MG VIAL IV ONE (10:13)
[2019-08-10] MEDS ORDERED: fentaNYL CITRATE 100 MCG/2 ML VL ONE (10:13)
[2019-08-10] MEDS ORDERED: MIDAZOLAM HCL 1MG/1ML-2 ML VIAL ONE (10:13)
[2019-08-10] MEDS ORDERED: IODIXANOL 320MG/ML 100ML BTL IV ONE (10:14)
[2019-08-10] MEDS ORDERED: SODIUM CHL 0.9% 50 ML ONE (10:14)
[2019-08-10] MEDS ORDERED: HEPARIN SODIUM (PORCINE) 5000 UNITS/ML 1ML VIAL ONE (10:46)
[2019-08-10] MEDS ORDERED: VERAPAMIL 2.5MG/ML INJ 2ML VIAL IV ONE (10:46)
[2019-08-10] MEDS ORDERED: ASPirin 325 MG TAB ONE (11:56)
[2019-08-10] MEDS ORDERED: CLOPIDOGREL 300 MG TAB ONE (11:56)
[2019-08-10 13:00] VITALS: BP 128/71
--- NOTE | 2019-08-10 13:11 | NUR ---
Patient back to room from procedure. Patient VSS, BP:128/71 NR:57 RR:16 O2:98%. Patient has a Vasc band to the left wrist that this nurses to to start disinflation at 1400 per clam bed laborer RN. No trauma to site noted. Will cont to monitor patient.
[2019-08-10] MEDS: ATORVASTATIN 20 MG TAB PO SCH (13:20)
[2019-08-10] MEDS: metroNIDAZOLE 500 MG TAB PO SCH (13:20)
[2019-08-10] MEDS: GEMFIBROZIL 600 MG TAB PO SCH (13:20)
[2019-08-10] MEDS: LINEZOLID 600MG TABLET PO SCH ×2 (13:27→22:24)
--- NOTE | 2019-08-10 14:17 | NUR ---
Nutrition Followup Notes Pt wt is 67.8 kg. Pt is currently NPO d/t scheduled medical procedure. Noted pt diet upgraded to a CCHO 45g diet this after morning rounds. Prior to pt NPO status pt appetite was good aeb ave 95% PO intake over two meals. Pt with no distress. Will continue to closely monitor pertinent labs, PO intake and skin status prn. Will followup in 3-5 days Recommendation: Consider a CCHO 60g/Cardiac 2gNa,lowfat,lowphos diet. Est Energy needs: 2558-2032 kcals (20-23 kcal/kgBW) Est Protein needs: 79-87 gms/day (1.0-1.1 gm/kgBW) Will continue to monitor and reassess prn. LABS: BUN 22 H CR 1.58 H, GFR 47 L, GLUC 129 H, CA 8.0 L, AST 10 L, ALT <6 L, ALB 2.1 L GI: Last BM noted on 08/09 per RN doc BS: 13 mod risk Please refer to wound assessment report for full details. PES: Problem 1) Inadequate oral intake r/t pt with fair appetite aeb ave 63% PO intake ove 4 meals 2) Altered nutrition related lab values r/t current medical condition aeb hyperglycemia, severe hypoalbuminemia Comments Will continue to closely monitor pertinent labs, PO intake and skin status prn. Will followup in 3-5 days 1) Continue to closely monitor pt PO intake to meet at least 75% of meals 2) Suggest a CCHO 60g/Cardiac 2gNA,lowfat,lowphos diet 3) Continue current plan of care
--- NOTE | 2019-08-10 14:20 | NUR ---
assessment Patient is a 69 year old male who is answering appropriately. Prior to admission patient lived home with family and needed assistance. Patient has a fww and a cane for home use. Patients PCP is Dr Beaulieu. Patient was on service with [facility]. Patient will need a resumption order on discharge. Patients daughter Airam is his emergency contact. I will continue to monitor for any other post discharge needs. Addendum: 08/10/19 at 1422 by Alessia CANELA Amended: Links added.
--- NOTE | 2019-08-10 15:20 | NUR ---
Dressing Changes Wound care done for patient as per MD orders. Patient tolerated well. Will cont to monitor patient.
--- NOTE | 2019-08-10 16:00 | NUR ---
VASC BAND Vasc band removed, patient tolerated, no trauma, hemorrhage, or hematoma to sight noted. Placed tegaderm, will cont to monitor patient.
[2019-08-10 16:42] VITALS: BP 133/77
--- NOTE | 2019-08-10 19:07 | NUR ---
Endorse report to night lee Moreno. Patient in no distress, sob, or pain at this time.
[2019-08-10] MEDS: HYDROcodone-ACET 5/325MG TAB PO PRN (20:53)
[2019-08-10 21:47] VITALS: BP 120/68
[2019-08-11 04:56] VITALS: BP 125/69
[2019-08-11 05:41] LABS: Basophils # (auto) 0.1 10 ^3/uL (0-0.2); Lymphocytes # (auto) 1.7 10 ^3/uL (0.4-5.4); Mean Corpuscular Volume 93.6 fL (80.0-100.0); White Blood Cell 8.2 10^3/uL (4.4-10.8)
[2019-08-11 05:52] LABS: Basophils % (auto) 1.4 % (0.0-2.0); Eosinophils # (auto) 0.6 10 ^3/uL (0-0.8); Eosinophils % (auto) 7.3 % (0.0-7.0); Hematocrit 24.6 % (41.0-53.0); Hemoglobin 8.5 g/dL (13.5-17.5); Lymphocytes % (auto) 20.6 % (10.0-50.0); Mean Corpuscular Hemoglobin 32.1 pg (28.0-32.0); Mean Corpuscular Hgb Conc. 34.3 g/dL (32.0-36.0); Neutrophils # (auto) 4.8 10 ^3/uL (1.6-8.6); Neutrophils % (auto) 58.7 % (37.0-80.0); Platelet Count (auto) 432 10^3/uL (140-450); Red Blood Cells 2.63 10^6/uL (4.5-5.90); Red Cell Distribution Width 16.8 % (11.8-14.3)
[2019-08-11 06:05] LABS: Potassium 3.3 mmol/L (3.5-5.1)
[2019-08-11 06:09] LABS: % Iron Saturation 19.9 % (20-55)
[2019-08-11 06:15] LABS: BUN/Creatinine Ratio 13.4; Calcium 8.1 mg/dL (8.5-10.1)
[2019-08-11] MEDS: HCTZ 25 MG TAB PO SCH (06:34)
[2019-08-11] MEDS: ACCU-CHEK COMFORT CURVE STRIP VI SCH ×4 (06:34→21:46)
[2019-08-11] MEDS: GABAPENTIN 300 MG CAP PO SCH ×4 (06:34→21:46)
[2019-08-11] MEDS: InsuLIN REG 1unit/0.01ml Soln (100units/ml) SC SCH ×4 (06:34→21:47)
--- NOTE | 2019-08-11 08:05 | NUR ---
OPENING SHIFT NOTE: PATIENT RESTING IN BED, THIS RN ASSISTED WITH BREAKFAST TRAY. PATIENT NOTED TO HAVE SEVERE RIGHT SIDED WEAKNESS, ASPIRATION AND FALL PRECAUTIONS IN PLACE. UNNA BOOTS IN PLACE, NIEVES HUNG BELOW BLADDER FREE OF KINKS, UPDATED ON PLAN OF CARE, CALL LIGHT WITHIN REACH, WILL CONTINUE TO MONITOR.
--- NOTE | 2019-08-11 08:30 | NUR ---
PAIN: PATIENT TURNED ON LEFT SIDE, SKIN ASSESSMENT COMPLETED, PATIENT REPORTING 10/10 PAIN AFTER. WILL MEDICATE ORDERED.
[2019-08-11] MEDS: CARVEDILOL 3.125 MG TAB PO SCH ×2 (08:50→21:46)
[2019-08-11] MEDS: ASPirin-EC 81 mg tab PO SCH (08:51)
[2019-08-11] MEDS: ATORVASTATIN 20 MG TAB PO SCH (08:51)
[2019-08-11] MEDS: CLOPIDOGREL BISULFATE 75 MG TAB PO SCH (08:51)
[2019-08-11] MEDS: amLODIPine BESYLATE 5 MG TAB PO SCH (08:51)
[2019-08-11] MEDS: LINEZOLID 600MG TABLET PO SCH ×2 (08:52→21:45)
[2019-08-11] MEDS: MORPHINE SULF INJ 2 MG/ML SYRINGE 1ML IV PRN (08:52)
[2019-08-11 09:23] VITALS: BP 126/68
--- NOTE | 2019-08-11 11:49 | NUR ---
DISCHARGE: PATIENT DISCHARGED HOME. ALL EDUCATION MATERIALS GIVEN TO PATIENT. IV DISCONTINUED, MANUAL PRESSURE APPLIED TELE BOX RETURNED TO CARDIO UNIT. PATIENT TAKEN DOWN TO MAIN LOBBY BY THIS RN AND GIVEN TAXI VOUCHER. PATIENT LEFT WITH ALL BELONGINGS. Addendum: 08/11/19 at 1152 by URMILA GREENWOOD RN RN -MISTAKEN ENTRY-
[2019-08-11 13:00] VITALS: BP 106/59
--- NOTE | 2019-08-11 13:05 | NUR ---
WOUND CARE NOTE: Wound care in to see patient for reevaluation of wounds that are present on admission. Patient continue resting on air mattress in Rm. 272B. Patient is awake, alert and oriented. He's in no stated pain at this time, however pain noted upon turning. He needs assistance in turning and repositioning and his Rios score is 13. Skin/wound assessment done with the assistance of patient's nurse, SUSAN Hanna. Patient's Rt hip (4.5x2x1.5cm) and Rt sacral (6x3x2.5cm)Stage 4 pressure injury remain the same with red wound bed, pink elena wound, moderate serous drainage, no odor noted. L sacrum (1.5x1cm) and L (3x1.5cm) and Rt(3x1.5cm) buttock continue to display Stage 3 pressure injuries. Wounds are red with pink elena wound, minimal serous drainage, no odor noted. Multiple Unstageable pressure injuries to Lt lateral lower leg (10x4cm), Rt heel (4.5x3cm), Lt heel (6x5.5cm) and Rt lateral ankle (0.5x0.5cm) remain the same, covered with 100% black hard eschar in exception to Rt lateral ankle which is much improved, clean and dry with pink elena wound and brown pigmented skin. Cleansed all wounds, photograph taken for reference and changed the dressing as ordered. Patient tolerated well. Repositioned for comfort on his back for lunch. RECOMMENDATION: Continuation of all wound care orders prescribed by MD, continue with skin/wound plan of care, continue monitoring by wound care while patient is hospitalized. Addendum: 08/11/19 at 1832 by Martha Toney RN Amended: Links added.
[2019-08-11] MEDS ORDERED: POTASSIUM CHL 20 Meq TABLET PO ONE (13:15)
--- NOTE | 2019-08-11 13:20 | NUR ---
WOUND CARE: WOUND CARE PERFORMED ORDERED. DANIEL PAZ RN AT BEDSIDE WITH THIS RN. PATIENT TOLERATED WELL.
--- NOTE | 2019-08-11 15:23 | NUR ---
FAMILY UPDATE: SON VIOLA SALINAS. UPDATED ON PLAN OF CARE.
[2019-08-11 17:09] VITALS: BP 110/57
--- NOTE | 2019-08-11 19:15 | NUR ---
CARE ENDORSED TO CORTES DAVIS.
--- NOTE | 2019-08-11 19:20 | NUR ---
Opening Shift Note Received report from ana luisa Hanna RN. Assumed care of patient, awake and alert. No S/S of distress/SOB or pain. Instructed on POC and to call for assist PRN, will continue to monitor for changes Q1hr and PRN. Bed placed in lowest position, bed alarm turned on and call light within reach.
[2019-08-11 22:28] VITALS: BP 123/68
--- NOTE | 2019-08-12 | NUR ---
DRESSINGS TO RIGHT HIP AND BUTTOCKS ARE CLEAN DRY AND INTACT.
[2019-08-12] MEDS: GABAPENTIN 300 MG CAP PO SCH ×4 (05:43→22:02)
[2019-08-12] MEDS: InsuLIN REG 1unit/0.01ml Soln (100units/ml) SC SCH ×4 (06:22→22:03)
[2019-08-12] MEDS: ACCU-CHEK COMFORT CURVE STRIP VI SCH ×4 (06:22→21:36)
--- NOTE | 2019-08-12 06:50 | NUR ---
PATIENT IS RESTING IN BED WITH EYES CLOSED, NO DISTRESS NOTED AND PATIENT DENIES PAIN. PATIENT DOES C/O PAIN WITH REPOSITION BUT REFUSED TO TAKE PAIN MEDICATIONS.
--- NOTE | 2019-08-12 07:00 | NUR ---
OPENING SHIFT NOTE: PATIENT RESTING IN BED, THIS RN ASSISTED WITH BREAKFAST TRAY. ASPIRATION AND FALL PRECAUTIONS IN PLACE. SANDRA BOOTS IN PLACE, NIEVES HUNG BELOW BLADDER FREE OF KINKS, UPDATED ON PLAN OF CARE, CALL LIGHT WITHIN REACH, WILL CONTINUE TO MONITOR.
[2019-08-12 09:00] VITALS: BP 122/66
[2019-08-12] MEDS: CARVEDILOL 3.125 MG TAB PO SCH (10:35)
[2019-08-12] MEDS: CLOPIDOGREL BISULFATE 75 MG TAB PO SCH (10:36)
[2019-08-12] MEDS: LINEZOLID 600MG TABLET PO SCH ×2 (10:36→22:02)
[2019-08-12] MEDS: ATORVASTATIN 20 MG TAB PO SCH (10:36)
[2019-08-12] MEDS: ASPirin-EC 81 mg tab PO SCH (10:36)
[2019-08-12] MEDS: amLODIPine BESYLATE 5 MG TAB PO SCH (10:36)
[2019-08-12] MEDS: ENOXAPARIN SOD 40 MG/0.4 ML SYRINGE SC SCH (10:37)
[2019-08-12 13:00] VITALS: BP 125/67
[2019-08-12 17:02] VITALS: BP 118/67
--- NOTE | 2019-08-12 19:09 | NUR ---
CARE ENDORSED TO CORTES DAVIS.
[2019-08-12 22:00] VITALS: BP 130/75
--- NOTE | 2019-08-13 | NUR ---
ROUNDS Patient is resting in bed with eyes closed, no distress noted and patient denies pain.
--- NOTE | 2019-08-13 04:00 | NUR ---
DRESSING CHANGED TO SACRUM, TO LEFT CALF AND RIGHT HIP ORDERED. SMALL AMOUNT OF SEROUS DRAINAGE AND NO ODOR NOTED. PATIENT TOLERATED WELL.
[2019-08-13 05:08] VITALS: BP 121/69
[2019-08-13 06:13] LABS: Basophils # (auto) 0.1 10 ^3/uL (0-0.2); Basophils % (auto) 1.2 % (0.0-2.0); Eosinophils # (auto) 0.6 10 ^3/uL (0-0.8); Eosinophils % (auto) 7.4 % (0.0-7.0); Hematocrit 26.7 % (41.0-53.0); Hemoglobin 8.9 g/dL (13.5-17.5); Lymphocytes # (auto) 2.3 10 ^3/uL (0.4-5.4); Lymphocytes % (auto) 27.5 % (10.0-50.0); Mean Corpuscular Hemoglobin 31.5 pg (28.0-32.0); Mean Corpuscular Hgb Conc. 33.4 g/dL (32.0-36.0); Mean Corpuscular Volume 94.2 fL (80.0-100.0); Monocytes # (auto) 0.9 10 ^3/uL (0-1.3); Monocytes % (auto) 11.1 % (0.0-12.0); Neutrophils # (auto) 4.5 10 ^3/uL (1.6-8.6); Neutrophils % (auto) 52.8 % (37.0-80.0); Nucleated Red Blood Cells % 0.1 %; Platelet Count (auto) 440 10^3/uL (140-450); Red Blood Cells 2.84 10^6/uL (4.5-5.90); Red Cell Distribution Width 16.4 % (11.8-14.3); White Blood Cell 8.4 10^3/uL (4.4-10.8)
[2019-08-13] MEDS: ACCU-CHEK COMFORT CURVE STRIP VI SCH ×4 (06:16→22:07)
[2019-08-13] MEDS: GABAPENTIN 300 MG CAP PO SCH ×4 (06:16→22:05)
[2019-08-13] MEDS: InsuLIN REG 1unit/0.01ml Soln (100units/ml) SC SCH ×4 (06:16→22:24)
[2019-08-13 06:34] LABS: Potassium 3.7 mmol/L (3.5-5.1)
[2019-08-13 06:52] LABS: Albumin 2.3 g/dL (3.4-5.0); BUN/Creatinine Ratio 13.9; Bilirubin, Total 0.3 mg/dL (0.2-1.0); Calcium 8.3 mg/dL (8.5-10.1); Magnesium 2.3 mg/dL (1.6-2.6); Total Protein 6.4 g/dL (6.4-8.2)
[2019-08-13 09:17] VITALS: BP 147/75
[2019-08-13] MEDS: ATORVASTATIN 20 MG TAB PO SCH (10:20)
[2019-08-13] MEDS: LINEZOLID 600MG TABLET PO SCH ×2 (10:20→22:06)
[2019-08-13] MEDS: CARVEDILOL 3.125 MG TAB PO SCH ×2 (10:22→22:06)
[2019-08-13] MEDS: CLOPIDOGREL BISULFATE 75 MG TAB PO SCH (10:22)
[2019-08-13] MEDS: ASPirin-EC 81 mg tab PO SCH (10:22)
[2019-08-13] MEDS: ENOXAPARIN SOD 40 MG/0.4 ML SYRINGE SC SCH (10:23)
[2019-08-13] MEDS: amLODIPine BESYLATE 5 MG TAB PO SCH (10:23)
--- NOTE | 2019-08-13 11:18 | NUR ---
Attempted PT eval. Pt was initially agreeable to physical therapy. Once supine to sit transfer was attempted, pt began saying "I can't." Therapist and tech attempted to assist patient but he began yelling that his feet hurt and refused to participate further. Pt refused PT evaluation yesterday. Will make one more attempt. If pt refuses again, pt will be discharged for non-compliance.
--- NOTE | 2019-08-13 11:35 | NUR ---
Nutrition Followup Notes Wt: 98.3 kg Pt`s with PT when rounded this am. pt is currently on CCHO 45g diet with adequate PO of 75% x 3 per RN doc. Est Energy needs: 5835-8629 kcals (20-23 kcal/kgBW), Est Protein needs: 79-87 gms/day (1.0-1.1 gm/kgBW). Will continue to monitor and reassess prn. LABS: BUN 23 H, CREAT 1.65 H, ALB 2.3 L, CA 8.3 L. GI: Last BM noted on 08/10 per RN doc BS: 13 mod risk Please refer to wound assessment report for full details. PES: Problem 1) Inadequate oral intake r/t pt with fair appetite aeb ave 63% PO intake ove 4 meals (partially resolved) 2) Altered nutrition related lab values r/t current medical condition aeb hyperglycemia, severe hypoalbuminemia Comments Will continue to closely monitor pertinent labs, PO intake and skin status prn. Will followup in 3-5 days 1) Continue to closely monitor pt PO intake to meet at least 75% of meals 2) Suggest a CCHO 60g/Cardiac 2gNA,lowfat diet 3) Continue current plan of care
[2019-08-13 13:00] VITALS: BP 140/76
--- NOTE | 2019-08-13 15:37 | NUR ---
Infusion company and Home Health Patient is receiving Vancomycin 750mg q12 with [facility] Patients home health company is [facility].
--- NOTE | 2019-08-13 15:37 | NUR ---
notified son that discharge was held.
[2019-08-13 16:46] VITALS: BP 136/76
--- NOTE | 2019-08-13 19:40 | NUR ---
RECEIVED PATIENT FROM DAY SHIFT RN. PATIENT RESTING IN BED. NO S/S OF DISTRESS NOTED. DENIED PAIN FOR NOW. ALL DRESSINGS ON SACRAL AND RIGHT LOWER EXTREMITY C/D/I. REPOSITIONED PATIENT, PATIENT TOLERATED WELL. NIEVES CATH IN PLACE DRAINING TO GRAVITY. POC INSTRUCTED AND ENCOURAGED PATIENT TO CALL FOR SALES DONOR RECRUITMENT REPRESENTATIVE IF NEEDED. SPECIAL MATTRESS BED IN LOWEST POSITION WITH SIDE RAILS UP X 2. CALL GUERRA WITHIN REACH. ALARM ON. CONTINUE TO MONITOR FOR CHANGES Q1H AND PRN.
[2019-08-13] MEDS: ENOXAPARIN SOD 100 MG/1 ML SYRINGE SC SCH (22:07)
[2019-08-13 22:09] VITALS: BP 126/71
--- NOTE | 2019-08-13 22:25 | NUR ---
ACCU-CHECK, BS 151. INSULIN GIVEN ORDERED. CONTINUE TO MONITOR.
--- NOTE | 2019-08-14 01:15 | NUR ---
PATIENT HAD BM. CLEANED PATIENT, PARTIAL LINEN CHANGED. PATIENT TOLERATED WELL. NO S/S OF DISTRESS NOTED. CONTINUE TO MONITOR.
--- NOTE | 2019-08-14 03:46 | NUR ---
PATIENT SLEEPING. NO S/S OF DISTRESS NOTED. CONTINUE TO MONITOR
[2019-08-14 05:00] VITALS: BP 115/77
--- NOTE | 2019-08-14 05:46 | NUR ---
REPOSITIONED PATIENT. PATIENT TOLERATED WELL. CONTINUE CARE.
[2019-08-14] MEDS: GABAPENTIN 300 MG CAP PO SCH ×4 (06:15→21:47)
[2019-08-14] MEDS: ACCU-CHEK COMFORT CURVE STRIP VI SCH ×4 (06:16→21:49)
[2019-08-14] MEDS: InsuLIN REG 1unit/0.01ml Soln (100units/ml) SC SCH ×4 (06:38→22:00)
--- NOTE | 2019-08-14 06:45 | NUR ---
ACCU-CHECK, BS 151. INSULIN GIVEN ORDERED. CONTINUE TO MONITOR.
--- NOTE | 2019-08-14 08:14 | NUR ---
Opening Note Assumed pt care from NOC RN. Pt is a/ox4 with no s/s of distress or SOB. Pt is currently sitting upright in bed with no complaints att his time. Pryor catheter is present, draining to gravity. Discussed POC with pt; pt verbalized understanding. Safety measures maintained with call light within reach, bed in lowest position and side rails up. Will continue to monitor for changes.
[2019-08-14 08:41] VITALS: BP 124/72
[2019-08-14] MEDS: ATORVASTATIN 20 MG TAB PO SCH (09:44)
[2019-08-14] MEDS: CARVEDILOL 3.125 MG TAB PO SCH ×2 (09:44→21:47)
[2019-08-14] MEDS: amLODIPine BESYLATE 5 MG TAB PO SCH (09:44)
[2019-08-14] MEDS: CLOPIDOGREL BISULFATE 75 MG TAB PO SCH (09:44)
[2019-08-14] MEDS: ENOXAPARIN SOD 100 MG/1 ML SYRINGE SC SCH ×2 (09:44→21:48)
[2019-08-14] MEDS: LINEZOLID 600MG TABLET PO SCH ×2 (09:45→21:48)
--- NOTE | 2019-08-14 09:55 | NUR ---
PICC Line Dressing Change Complete PICC line dresing change complete. Sterile technique used. Pt tolerated change well. Will continue to monitor.
[2019-08-14 13:00] VITALS: BP 112/63
--- NOTE | 2019-08-14 13:15 | NUR ---
Attempted PT eval for the 3rd time in a row. Pt continues to decline assessment and sitting EOB. Will sign off. Please reorder PT if patient is agreeable to physical therapy.
--- NOTE | 2019-08-14 15:00 | NUR ---
Consents Consents are signed and placed in chart. Pt has difficulty signing consents due to present weakness, pt initialed the consents. No questions at this time.
--- NOTE | 2019-08-14 15:35 | NUR ---
Wound Care Wound care completed per MD's orders. Pt tolerated well. Will continue to monitor.
[2019-08-14 17:03] VITALS: BP 119/64
--- NOTE | 2019-08-14 18:27 | NUR ---
EKG Complete for Pre-Op EKG complete, placed in chart.
--- NOTE | 2019-08-14 19:30 | NUR ---
RECEIVED PATIENT FROM DAY SHIFT RN. PATIENT RESTING IN BED. NO S/S OF DISTRESS NOTED. DENIED PAIN FOR NOW. ALL DRESSINGS ON SACRAL AND RIGHT LOWER EXTREMITY C/D/I. REPOSITIONED PATIENT, PATIENT TOLERATED WELL. NIEVES CATH IN PLACE DRAINING TO GRAVITY. POC INSTRUCTED AND ENCOURAGED PATIENT TO CALL FOR PHYSICAL THERAPY ASSISTANT IF NEEDED. SPECIAL MATTRESS BED IN LOWEST POSITION WITH SIDE RAILS UP X 2. CALL GUERRA WITHIN REACH. ALARM ON. CONTINUE TO MONITOR FOR CHANGES Q1H AND PRN.
[2019-08-14 22:00] VITALS: BP 123/71
--- NOTE | 2019-08-14 22:07 | NUR ---
ACCU-CHECK, BS 141. PATIENT STILL REFUSED INSULIN. CONTINUE TO MONITOR.
--- NOTE | 2019-08-14 23:12 | NUR ---
PATIENT HAD BM. CLEANED PATIENT. TOTAL LINEN AND PATIENT GOWN CHANGED. PATIENT TOLERATED WELL. CONTINUE CAR.E
[2019-08-15] VITALS (8 sets, daily range): BP systolic 104–134; BP diastolic 58–76
[2019-08-15] MEDS ORDERED: SODIUM CHLORIDE 0.9% 500 ML IV ONE (00:01)
--- NOTE | 2019-08-15 00:49 | NUR ---
PATIENT STARTED NPO FROM NOW ON. WATER REMOVED FROM BEDSIDE. REPOSITIONED PATIENT. CONTINUE TO MONITOR.
--- NOTE | 2019-08-15 02:11 | NUR ---
PATIENT SLEEPING. NO S/S OF DISTRESS NOTED. CONTINUE TO MONITOR
[2019-08-15 05:59] LABS: Basophils # (auto) 0.1 10 ^3/uL (0-0.2); Basophils % (auto) 1.4 % (0.0-2.0); Eosinophils # (auto) 0.7 10 ^3/uL (0-0.8); Eosinophils % (auto) 8.3 % (0.0-7.0); Hematocrit 25.9 % (41.0-53.0); Hemoglobin 8.9 g/dL (13.5-17.5); Lymphocytes # (auto) 2.5 10 ^3/uL (0.4-5.4); Lymphocytes % (auto) 28.8 % (10.0-50.0); Mean Corpuscular Hemoglobin 32.3 pg (28.0-32.0); Mean Corpuscular Hgb Conc. 34.3 g/dL (32.0-36.0); Mean Corpuscular Volume 94.3 fL (80.0-100.0); Monocytes # (auto) 0.5 10 ^3/uL (0-1.3); Monocytes % (auto) 6.2 % (0.0-12.0); Neutrophils # (auto) 4.7 10 ^3/uL (1.6-8.6); Neutrophils % (auto) 55.3 % (37.0-80.0); Nucleated Red Blood Cells % 0.1 %; Platelet Count (auto) 386 10^3/uL (140-450); Red Blood Cells 2.74 10^6/uL (4.5-5.90); Red Cell Distribution Width 16.5 % (11.8-14.3); White Blood Cell 8.6 10^3/uL (4.4-10.8)
[2019-08-15] MEDS: GABAPENTIN 300 MG CAP PO SCH ×4 (06:00→21:59)
[2019-08-15] MEDS: ACCU-CHEK COMFORT CURVE STRIP VI SCH ×4 (06:34→22:13)
[2019-08-15] MEDS: InsuLIN REG 1unit/0.01ml Soln (100units/ml) SC SCH ×4 (06:34→22:14)
--- NOTE | 2019-08-15 06:34 | NUR ---
ACCU-CHECK, BS 107. NO COVERAGE. CONTINUE TO MONITOR.
[2019-08-15 06:38] LABS: BUN/Creatinine Ratio 20.1; Calcium 8.2 mg/dL (8.5-10.1); Potassium 3.4 mmol/L (3.5-5.1)
[2019-08-15 06:49] LABS: INR 1.11 (0.9-1.15); Partial Thromboplastin Time 40.4 sec (23.64-32.05)
--- NOTE | 2019-08-15 07:19 | NUR ---
Opening Note Assumed pt care from NOC RN. Pt is a/ox4 with no s/s of distress or SOB. Pt is currently sitting upright in bed with no complaints at this time. Pt has been NPo since 0000 for scheduled procedure. Pryor catheter is present, free or kinks and draining to gravity. Discussed POC with pt; pt verbalized understanding. Safety measures maintained with call light within reach, bed in lowest position and side rails up. Will continue to monitor.
--- NOTE | 2019-08-15 07:27 | NUR ---
Spoke with Sourcing Manager Scheduled procedure to be around 1200; will notify pt.
[2019-08-15] MEDS: LINEZOLID 600MG TABLET PO SCH ×2 (08:31→21:59)
[2019-08-15] MEDS: ATORVASTATIN 20 MG TAB PO SCH (08:32)
[2019-08-15] MEDS: amLODIPine BESYLATE 5 MG TAB PO SCH (08:33)
[2019-08-15] MEDS: CARVEDILOL 3.125 MG TAB PO SCH ×2 (08:33→22:00)
[2019-08-15] MEDS: CLOPIDOGREL BISULFATE 75 MG TAB PO SCH (08:33)
[2019-08-15] MEDS: ENOXAPARIN SOD 100 MG/1 ML SYRINGE SC SCH (08:34)
--- NOTE | 2019-08-15 09:43 | NUR ---
Joaquina Boots Removed [place] boots removed in prep for Macadam Raker procedure. Heels of feet off-loaded with use of pillow. Will continue to monitor.
--- NOTE | 2019-08-15 10:10 | NUR ---
Wound Care Dressings to wounds reinforced. No drainage noted at this time. Will continue to monitor.
--- NOTE | 2019-08-15 10:53 | NUR ---
Pt Taken to Bending Roll Operator Pt taken to finishing lab technician via stretcher for scheduled procedure. Pt is a/ox4 with no s/s of distress or SOB upon transfer. All questions answered to finishing lab technician staff.
[2019-08-15] MEDS ORDERED: LIDOCAINE 2%HCL (LOCAL ANESTH.) INJ 20ML MDV ONE (11:55)
[2019-08-15] MEDS ORDERED: IODIXANOL 320MG/ML 100ML BTL IV ONE (11:55)
[2019-08-15] MEDS ORDERED: fentaNYL CITRATE 100 MCG/2 ML VL ONE (11:57)
[2019-08-15] MEDS ORDERED: ANGIOMAX 250 MG VIAL IV ONE (11:57)
[2019-08-15] MEDS ORDERED: SODIUM CHL 0.9% 50 ML ONE (11:58)
[2019-08-15] MEDS ORDERED: MIDAZOLAM HCL 1MG/1ML-2 ML VIAL ONE (11:58)
--- NOTE | 2019-08-15 14:36 | NUR ---
Pt Back on Unit Pt back on unit from Military Pay Clerk. Pt is a/ox4 with no s/s of distress or SOB. Pt is to lay flat for an additional 10 minutes. Site to L groin is clean, dry and intact. Safety measures initiated with call light within reach, bed in lowest position and side rails up. Will continue to monitor.
--- NOTE | 2019-08-15 14:46 | NUR ---
Pt Able to Sit Up Pt able to sit up in bed, site to L groin is clean, dry and intact, soft upon palpation. Joaquina boots are placed back on pt and pt provided a sandwich. Will continue to monitor site. Addendum: 08/15/19 at 1459 by AWILDA NELSON RN RN Correction, pt is still flat at this time. Documented on wrong patient
--- NOTE | 2019-08-15 15:43 | NUR ---
Assessed Site Site has minimal blood noted to dressing. Will have pt remain flat that this time and reassess. Will continue to monitor. Addendum: 08/15/19 at 1600 by AWILDA NELSON RN RN Reassessment No more drainage noted, changed pressure dressing at this time due to saturation as well as to better monitor for bleeding. Will keep pt flat at this time and reassess. Will continue to monitor. Addendum: 08/15/19 at 1646 by AWILDA NELSON RN RN Mild amount of blood noted to dressing. Site is soft and nontender. Changed dressing at this time, pressure was applied to site for 5 minutes. Will keep pt flat until dinner. Will continue to monitor. Addendum: 08/15/19 at 1740 by AWILDA NELSON RN RN Mild amount of blood noted to dressing. Pressure applied for 5 minutes. Dressing changed at this time, small trickle of blood present after pressure applied. Pt sat up for dinner. Will continue to monitor site. Addendum: 08/15/19 at 1756 by AWILDA NELSON RN RN Check site post raising HOB up for dinner. No additional blood present on dressing since raising HOB. Site is soft and non tender. Will continue to monitor.
[2019-08-15] MEDS ORDERED: SODIUM CHLORIDE 0.9% 1,000 ML IV ONE (19:15)
[2019-08-15] MEDS ORDERED: APIXABAN 5 MG TAB PO SCH (22:00)
--- NOTE | 2019-08-16 01:49 | NUR ---
SITE DRESSING CHANGED WITH MINIMAL BLOOD OBSERVED;PT HAD LARGE BM;CLEANED WITH NEW LINED;BED BATH AND GOWN;NEW OPTIFOAM DRESSING TO SACRAL DECUBITUS.
[2019-08-16 05:00] VITALS: BP 96/58
[2019-08-16 05:27] LABS: Basophils # (auto) 0.1 10 ^3/uL (0-0.2); Eosinophils # (auto) 0.6 10 ^3/uL (0-0.8); Eosinophils % (auto) 6.2 % (0.0-7.0); Hematocrit 25.2 % (41.0-53.0); Hemoglobin 8.3 g/dL (13.5-17.5); Lymphocytes # (auto) 1.9 10 ^3/uL (0.4-5.4); Lymphocytes % (auto) 21.4 % (10.0-50.0); Mean Corpuscular Volume 97.1 fL (80.0-100.0); Monocytes # (auto) 0.5 10 ^3/uL (0-1.3); Monocytes % (auto) 5.9 % (0.0-12.0); Neutrophils % (auto) 65.5 % (37.0-80.0); Platelet Count (auto) 371 10^3/uL (140-450); Red Cell Distribution Width 16.4 % (11.8-14.3); White Blood Cell 9.1 10^3/uL (4.4-10.8)
[2019-08-16 05:49] LABS: Calcium 8.3 mg/dL (8.5-10.1); Potassium 3.3 mmol/L (3.5-5.1)
[2019-08-16 05:51] LABS: BUN/Creatinine Ratio 20.9
--- NOTE | 2019-08-16 06:38 | NUR ---
PAGE TO HOSPITALIST REGARDING THE INCREASED DRAINAGE FROM THE INCISIONAL SITE.SITE CHANGED AND CLEANED WITH PT TURNED. WILL PASS TO DAYSHIFT RN THE NEED TO DISCUSS PERHAPS DECREASING ELIQUIS DOSAGE BECAUSE DAYSHIFT HOSPITALIST RIP INCREASED ELIQUIS YESTERDAY. PT HAS A PULMONARY EMBOLISM AND NEEDS THE ELIQUIS;HOWEVER THE SLOW INCREASED IN BLOOD TRICKLE FROM THE INCISIONAL SITE NEEDS TO BE MEDICALLY CONTROLLED. PT RESTING AT THIS TIME;CALM WITH NO DISTRESS. CALL LIGHT IN REACH.
[2019-08-16] MEDS: ACCU-CHEK COMFORT CURVE STRIP VI SCH ×4 (06:55→22:06)
[2019-08-16] MEDS: InsuLIN REG 1unit/0.01ml Soln (100units/ml) SC SCH ×4 (06:55→22:05)
[2019-08-16] MEDS: GABAPENTIN 300 MG CAP PO SCH ×4 (06:59→22:01)
--- NOTE | 2019-08-16 07:08 | NUR ---
HOSPITALIST CALLED [id number] A PRESSURE DRESSING TO INCISION AND RECOMMENDED DAYSDEFT HOSPITALIST BE CONSULTED REGARDING THE ELIQUIS DOSAGE. WILL DISCUSS AND CLARIFY WITH LYNDSAY DAVIS.
--- NOTE | 2019-08-16 07:40 | NUR ---
OPENING SHIFT NOTE: PATIENT RESTING IN BED, NOC RN AT BEDSIDE WITH THIS RN. LEFT GROIN ANGIO SITE ASSESSED. NOTABLE AMOUNT OF TESFAYE RED BLOOD SATURATING DRESSING AND BED LINENS. SAND BAG REMOVED AND THIS RN BEGAN MANUAL PRESSURE. RESPIRATIONS EVEN AND UNLABORED PATIENT IN NO SIGNS OF DISTRESS. A/OX4 UPDATED ON PLAN OF CARE. NIEVES HUNG BELOW BLADDER, SANDRA BOOTS IN PLACE. WILL CONTINUE TO MONITOR.
--- NOTE | 2019-08-16 08:15 | NUR ---
LEFT GROIN SITE: BLEEDING NOTED TO BE ALMOST RESOLVED, DRESSING RE-APPLIED. VS STABLE, WILL CONTINUE TO MONITOR.
[2019-08-16] MEDS ORDERED: POTASSIUM EFFERVESENT TAB 25 MEQ PO ONE (08:30)
[2019-08-16] MEDS ORDERED: POTASSIUM CHL 20 Meq TABLET PO ONE (08:30)
--- NOTE | 2019-08-16 08:32 | NUR ---
MD RUCKER ROUNDING.
--- NOTE | 2019-08-16 08:50 | NUR ---
MD JATINDER LEGER. ORDERS RECEIVED.
[2019-08-16 09:00] VITALS: BP 123/54
[2019-08-16 09:56] LABS: INR 1.13 (0.9-1.15)
[2019-08-16] MEDS: CLOPIDOGREL BISULFATE 75 MG TAB PO SCH (10:00)
[2019-08-16] MEDS: ATORVASTATIN 20 MG TAB PO SCH (10:23)
[2019-08-16] MEDS: amLODIPine BESYLATE 5 MG TAB PO SCH (10:23)
[2019-08-16] MEDS: LINEZOLID 600MG TABLET PO SCH ×2 (10:24→22:01)
[2019-08-16] MEDS: CARVEDILOL 3.125 MG TAB PO SCH ×2 (10:24→22:00)
--- NOTE | 2019-08-16 12:20 | NUR ---
FAMILY CALL: CALL FROM VIOLA, SON. UPDATED ON PLAN OF CARE. WILL CONTINUE TO MONITOR.
--- NOTE | 2019-08-16 12:31 | NUR ---
Nutrition Followup Notes Wt: 71.5kg kg Pt was with treatment team this morning when rounding. Pt currently on ELBA (3-4g) diet with adequate po intake of 75-100% x3 days when not NPO. Pt with hx of DM, consider CCHO 60g diet along with 2g Na diet. Est Energy needs: 0063-3298 kcals (20-23 kcal/kgBW), Est Protein needs: 79-87 gms/day (1.0-1.1 gm/kgBW). Will continue to monitor and reassess prn. LABS: BUN 32H, Creat 1.53H, GLUC 172H, Ca 8.3L, Alb 2.3L GI: Last BM noted on 08/15 per RN doc BS: 17 mod risk Please refer to wound assessment report for full details. PES: Problem 1) Inadequate oral intake r/t pt with fair appetite aeb ave 63% PO intake ove 4 meals (partially resolved) 2) Altered nutrition related lab values r/t current medical condition aeb hyperglycemia, severe hypoalbuminemia Comments Will continue to closely monitor pertinent labs, PO intake and skin status prn. Will followup in 3-5 days 1) Continue to closely monitor pt PO intake to meet at least 75% of meals 2) Suggest a CCHO 60g/Cardiac 2gNA,lowfat diet 3) Continue current plan of care
[2019-08-16 13:10] VITALS: BP 132/92
--- NOTE | 2019-08-16 13:13 | NUR ---
CALL TO FLACA BASSETT IN CASE MANAGEMENT: CALL MADE TO CLARIFY PLAN REGARDING DISCHARGE. LAST ORDER FOR GAME DESIGN INSTRUCTOR CANCELLED FOR IV ANTIBIOTICS AND HOME HEALTH. CASE MANAGEMENT NEEDS TO KNOW PLAN FROM MD WHAT ANTIBIOTICS AND HOW LONG. WILL INFORM MD.
[2019-08-16 14:18] LABS: Hematocrit 22.2 % (41.0-53.0); Hemoglobin 7.4 g/dL (13.5-17.5)
--- NOTE | 2019-08-16 14:48 | NUR ---
CALL FROM [facility]: REGARDING ANTIBIOTICS/HOME INFUSIONS. CALL MADE TO JATINDER REGARDING PLAN, PERSON TO CONTACT ONCE PLAN IS ESTABLISHED IS MIREYA AT [facility] [phone]
--- NOTE | 2019-08-16 14:54 | NUR ---
FAMILY UPDATED ON D/C PLAN FOR 08/16.
[2019-08-16 16:34] VITALS: BP 114/63
--- NOTE | 2019-08-16 19:27 | NUR ---
CARE ENDORSED TO MIREYA DAVIS.
[2019-08-16 21:23] VITALS: BP 117/54
[2019-08-16 21:41] LABS: Hematocrit 23.9 % (41.0-53.0); Hemoglobin 7.9 g/dL (13.5-17.5)
[2019-08-17] VITALS (13 sets, daily range): BP systolic 98–129; BP diastolic 48–87
--- NOTE | 2019-08-17 05:34 | NUR ---
Dressings changed Dressings to Sacrum, Right hip and Right calf changed per MD order.
[2019-08-17 06:04] LABS: Basophils # (auto) 0.1 10 ^3/uL (0-0.2); Basophils % (auto) 1.3 % (0.0-2.0); Eosinophils # (auto) 0.7 10 ^3/uL (0-0.8); Eosinophils % (auto) 8.5 % (0.0-7.0); Hemoglobin 7.2 g/dL (13.5-17.5); Lymphocytes # (auto) 2.2 10 ^3/uL (0.4-5.4); Lymphocytes % (auto) 25.5 % (10.0-50.0); Mean Corpuscular Hemoglobin 31.4 pg (28.0-32.0); Mean Corpuscular Hgb Conc. 32.9 g/dL (32.0-36.0); Mean Corpuscular Volume 95.4 fL (80.0-100.0); Monocytes # (auto) 0.4 10 ^3/uL (0-1.3); Monocytes % (auto) 4.6 % (0.0-12.0); Neutrophils # (auto) 5.2 10 ^3/uL (1.6-8.6); Neutrophils % (auto) 60.1 % (37.0-80.0); Platelet Count (auto) 338 10^3/uL (140-450); Red Cell Distribution Width 16.5 % (11.8-14.3); White Blood Cell 8.6 10^3/uL (4.4-10.8)
[2019-08-17 06:21] LABS: Potassium 3.3 mmol/L (3.5-5.1)
[2019-08-17 06:28] LABS: BUN/Creatinine Ratio 20.6
[2019-08-17] MEDS: InsuLIN REG 1unit/0.01ml Soln (100units/ml) SC SCH ×4 (06:34→17:58)
[2019-08-17] MEDS: GABAPENTIN 300 MG CAP PO SCH ×3 (06:34→18:25)
[2019-08-17] MEDS: ACCU-CHEK COMFORT CURVE STRIP VI SCH ×3 (06:35→17:58)
--- NOTE | 2019-08-17 08:15 | NUR ---
OPENING SHIFT NOTE: PATIENT RESTING IN BED, RESPIRATIONS EVEN AND UNLABORED PATIENT IN NO SIGNS OF DISTRESS. A/OX4 UPDATED ON PLAN OF CARE. NIEVES HUNG BELOW BLADDER, SANDRA BOOTS IN PLACE. WILL CONTINUE TO MONITOR.
--- NOTE | 2019-08-17 08:30 | NUR ---
WOUND CARE PHOTOS OBTAINED FOR POSSIBLE D/C PROTOCOL. WOUND CARE ALSO PERFORMED AT THIS TIME.
[2019-08-17] MEDS: LINEZOLID 600MG TABLET PO SCH (09:06)
[2019-08-17] MEDS: CLOPIDOGREL BISULFATE 75 MG TAB PO SCH (09:06)
[2019-08-17] MEDS: ATORVASTATIN 20 MG TAB PO SCH (09:06)
[2019-08-17] MEDS: amLODIPine BESYLATE 5 MG TAB PO SCH (09:06)
[2019-08-17] MEDS: CARVEDILOL 3.125 MG TAB PO SCH (09:06)
--- NOTE | 2019-08-17 13:35 | NUR ---
NIEVES REMOVED. 175ML OUT IN BAG. 10CC OUT OF NIEVES BALLOON. PATIENT GIVEN URINAL.
--- NOTE | 2019-08-17 13:40 | NUR ---
PATIENT ABLE TO VOID IN URINAL. <50 ML URINE NOTED CLEAR YELLOW NON-ODOROUS.
--- NOTE | 2019-08-17 13:41 | NUR ---
1837 08/17/19 I spoke with [place] [employer] Grace, she is requesting MD progress notes for 08/04 through 08/08 (already faxed to her on 08/08 with confirmed receipt). I faxed MD progress notes again for 08/04 through 08/09/19. I requested that authorization be provided for patient's continued stay. Per Grace she will call me back regarding authorization request. I let her know patient is to discharge home today with home health-she will send authorization to [facility].
--- NOTE | 2019-08-17 13:44 | NUR ---
BLOOD TRANSFUSION COMPLETE. PATIENT RESTING COMFORTABLY IN BED. NO SIGNS OF DISTRESS. SEE TRANSFUSION RECORD FOR VS SPREADSHEET.
--- NOTE | 2019-08-17 14:14 | NUR ---
I called [phone] and spoke with Krystle to ask about transportation benefits-she transferred me to their transportation department and I spoke with Joselin-she said [facility] will be here between 5-6pm ([phone] extension [phone]).
--- NOTE | 2019-08-17 14:25 | NUR ---
MK WITH [facility] TO PHONE TECHNICIAN/ TRANSPORT AT 1800.
--- NOTE | 2019-08-17 14:27 | NUR ---
FAMILY UPDATED ON DISCHARGE INSTRUCTIONS. VIOLA, SON ADDRESSED WITH CONCERNS. HE VERBALIZED UNDERSTANDING, PATIENT TO LEAVE THIS EVENING.
--- NOTE | 2019-08-17 15:14 | NUR ---
D/C Planning Per SS consult to resume home health for wound care and physical therapy. Patient is on service with [facility]. KEVIN Do arranged transportation and will obtain authorization for home health agency. Faxed clinical information to [facility]. Per Mariana with [facility] they will resume service within 24-48hrs upon d/c day. Informed SUSAN Banda.
--- NOTE | 2019-08-17 15:27 | NUR ---
ETA TRANSPORT TIME: CALL FROM [facility], TRANSPORT TIME CHANGED TO 1900.
[2019-08-17] MEDS ORDERED: LINE1TAB6 PO (15:43)
[2019-08-17] MEDS ORDERED: DOXY-286 PO (15:43)
[2019-08-17] MEDS ORDERED: CLOP75TA28 PO (15:44)
[2019-08-17] MEDS ORDERED: APIX5TAB PO (15:44)
--- NOTE | 2019-08-17 19:07 | NUR ---
ETA: CALL FROM [facility] REP, NEW ETA 2000. WILL ENDORSE TO DEDRA DAVIS.
--- NOTE | 2019-08-17 19:12 | NUR ---
CARE ENDORSED TO MIREYA DAVIS.
--- NOTE | 2019-08-17 19:20 | NUR ---
Opening Note Assumed care of patient, awake and alert. No S/S of distress/SOB or pain. Instructed on POC he will be picked up and discharged home. Spoked to his son and gave him an update as well. Transportation is running late according to report. Will continue to monitor. Instructed patient to call for assist as needed.
--- NOTE | 2019-08-17 20:48 | NUR ---
Patient left via gurney, alert and oriented. Patient had al his belongings with him.
[2019-08-22] MEDS ORDERED: APIXABAN 5 MG TAB PO SCH (22:00)
== END 2019-08-17 20:45 | disposition home or self-care (01) | DRG 853 ==
LOC: ER 19:29 → EDBD 19:29 → TELE 19:30 → TELE-WESTW 08-04 03:39
PROVIDERS: ADMIT Hospitalist; ATTEND Internal Medicine Nephrology
PROC: 027034Z Dilation of Coronary Artery, One Artery with Drug-eluting Intraluminal Device, Percutaneous Approach (ICD-10-PCS; principal; 2019-08-10)
PROC: 4A023N7 Measurement of Cardiac Sampling and Pressure, Left Heart, Percutaneous Approach (ICD-10-PCS; 2019-08-10)
PROC: B211YZZ Fluoroscopy of Multiple Coronary Arteries using Other Contrast (ICD-10-PCS; 2019-08-10)
PROC: B215YZZ Fluoroscopy of Left Heart using Other Contrast (ICD-10-PCS; 2019-08-10)
PROC: 047K3ZZ Dilation of Right Femoral Artery, Percutaneous Approach (ICD-10-PCS; 2019-08-15)
PROC: B41G1ZZ Fluoroscopy of Left Lower Extremity Arteries using Low Osmolar Contrast (ICD-10-PCS; 2019-08-15)
PROC: B41F1ZZ Fluoroscopy of Right Lower Extremity Arteries using Low Osmolar Contrast (ICD-10-PCS; 2019-08-15)
PROC: 04CK3ZZ Extirpation of Matter from Right Femoral Artery, Percutaneous Approach (ICD-10-PCS; 2019-08-15)
PROC: 30233N1 Transfusion of Nonautologous Red Blood Cells into Peripheral Vein, Percutaneous Approach (ICD-10-PCS; 2019-08-17)
DX: A41.9 Sepsis, unspecified organism (principal); L89.314 Pressure ulcer of right buttock, stage 4; L89.154 Pressure ulcer of sacral region, stage 4; L89.214 Pressure ulcer of right hip, stage 4; L03.116 Cellulitis of left lower limb; I69.351 Hemiplegia and hemiparesis following cerebral infarction affecting right dominant side; L03.115 Cellulitis of right lower limb; E11.52 Type 2 diabetes mellitus with diabetic peripheral angiopathy with gangrene; I96 Gangrene, not elsewhere classified; R55 Syncope and collapse; E87.6 Hypokalemia; E78.5 Hyperlipidemia, unspecified; Z99.3 Dependence on wheelchair; F17.210 Nicotine dependence, cigarettes, uncomplicated; I10 Essential (primary) hypertension; E11.40 Type 2 diabetes mellitus with diabetic neuropathy, unspecified; E66.9 Obesity, unspecified; I25.10 Atherosclerotic heart disease of native coronary artery without angina pectoris; I65.21 Occlusion and stenosis of right carotid artery; L89.620 Pressure ulcer of left heel, unstageable; L89.610 Pressure ulcer of right heel, unstageable; L89.510 Pressure ulcer of right ankle, unstageable; L89.319 Pressure ulcer of right buttock, unspecified stage; Z79.02 Long term (current) use of antithrombotics/antiplatelets; Z79.4 Long term (current) use of insulin; Z74.01 Bed confinement status; Z79.899 Other long term (current) drug therapy; Z82.0 Family history of epilepsy and other diseases of the nervous system; Z82.49 Family history of ischemic heart disease and other diseases of the circulatory system; Z86.711 Personal history of pulmonary embolism; Z83.3 Family history of diabetes mellitus; Z95.5 Presence of coronary angioplasty implant and graft; Z88.0 Allergy status to penicillin; Z68.38 Body mass index [BMI] 38.0-38.9, adult; B95.7 Other staphylococcus as the cause of diseases classified elsewhere
CPT/HCPCS: 36415; 37225; 70450; 70551; 71045; 72192; 73700; 73721; 75716; 78452; 80048; 80053; 80061; 81001; 82962; 83036; 83540; 83550; 83605; 83735; 83880; 84100; 84484; 85014; 85018; 85025; 85379; 85610; 85730; 86850; 86900; 86901; 86920; 87040; 87077; 87081; 87086; 87186; 87205; 92928; 93005; 93017; 93458; 93886; 93925; 93970; 95819; 99152; 99153; C1725; C1874; C1887; G0378; J0153; J0696; J1815; J1956; J2250; J3480; J3490; Q9967

== ENCOUNTER 2020-01-08 14:07 | Inpatient (IN) | payer OTHER ==
[~2020-01-08] VITALS: Ht 170.2 cm; Wt 80.4 kg
[~2020-01-08 14:07] MED LIST changes: +APIX5TAB PO; +CLOP75TA28 PO; +DOXY-286 PO; -FENO160T8 PO; -FLUO0.059 TOP; -GEMF600T7 PO; -HYDR25TA4 PO; +LINE1TAB6 PO
[2020-01-08] MEDS ORDERED: SODIUM CHLORIDE 0.9% 1,000 ML IV ONE (15:30)
[2020-01-08] MEDS ORDERED: VANCOMYCIN 1GM/250ML 250 ML IV ONE (15:30)
[2020-01-08 16:36] LABS: Basophils # (auto) 0.1 10 ^3/uL (0-0.2); Eosinophils # (auto) 0.4 10 ^3/uL (0-0.8); Hematocrit 30.2 % (41.0-53.0); Hemoglobin 10.1 g/dL (13.5-17.5); Lymphocytes # (auto) 2.4 10 ^3/uL (0.4-5.4); Lymphocytes % (auto) 22.2 % (10.0-50.0); Mean Corpuscular Hemoglobin 30.6 pg (28.0-32.0); Mean Corpuscular Hgb Conc. 33.5 g/dL (32.0-36.0); Mean Corpuscular Volume 91.1 fL (80.0-100.0); Monocytes # (auto) 0.7 10 ^3/uL (0-1.3); Monocytes % (auto) 6.6 % (0.0-12.0); Neutrophils # (auto) 7.3 10 ^3/uL (1.6-8.6); Neutrophils % (auto) 66.2 % (37.0-80.0); Platelet Count (auto) 360 10^3/uL (140-450); Red Blood Cells 3.31 10^6/uL (4.5-5.90); Red Cell Distribution Width 15.9 % (11.8-14.3)
[2020-01-08 16:51] LABS: INR 0.99 (0.9-1.15); Partial Thromboplastin Time 26.7 sec (23.0-31.2)
[2020-01-08 17:01] LABS: Alanine Aminotransferase 16 U/L (16-61); Albumin 2.9 g/dL (3.4-5.0); Anion Gap 6 (5-15); Aspartate Aminotransferase 13 U/L (15-37); BUN/Creatinine Ratio 26.4; Blood Urea Nitrogen 32 mg/dL (7-18); Calcium 8.9 mg/dL (8.5-10.1); Carbon Dioxide 24 mmol/L (21-32); Chloride 106 mmol/L (98-107); GFR African American 77 mL/min; GFR Non-African American 63 mL/min; Glucose 144 mg/dL (74-106); Potassium 4.4 mmol/L (3.5-5.1); Sodium 136 mmol/L (136-145)
[2020-01-08 17:06] LABS: Alkaline Phosphatase 104 U/L (45-117); Bilirubin, Total 0.3 mg/dL (0.2-1.0); Total Protein 7.9 g/dL (6.4-8.2)
[2020-01-08] MEDS ORDERED: ONDANSETRON HCL 4 MG/2 ML VIAL IV PRN (18:45)
[2020-01-08] MEDS ORDERED: MORPHINE SULF INJ 2 MG/ML SYRINGE 1ML IV PRN (18:45)
[2020-01-08] MEDS ORDERED: NITROGLYCERIN 0.4 MG SL TAB SL PRN (18:45)
[2020-01-08] MEDS ORDERED: VANCOMYCIN PER PHARMACY 0 MG IV SCH (18:45)
[2020-01-08] MEDS ORDERED: ACETAMINOPHEN 500 MG TAB PO PRN (18:45)
--- NOTE | 2020-01-08 20:33 | NUR ---
Telemetry admit from [facility] admitted to Telemetry unit after no SBAR received. Patient oriented to Radha Rosen, primary RN, unit, room, bed, and unit policies regarding patient care and visiting hours. Patient now on continuous telemetry monitoring, tele box # 52 and telemetry reading on arrival to unit is SR. Patient breathing on RA, weighed by bedscale and encouraged to call if they need something. All questions and concerns addressed, patient verbalized understanding. Patient is bedrest as a result from CVA approximately one year ago, wounds noted to bilateral heels and right calf, patient is on RA O2 sat 99%, right sided weakness noted. Per patient he has no concern or problems swallowing, he eats regular food at home with no problems related to stroke.
[2020-01-08 22:04] VITALS: BP 146/79
[2020-01-08] MEDS: CARVEDILOL 3.125 MG TAB PO SCH (22:17)
[2020-01-08] MEDS: GABAPENTIN 300 MG CAP PO SCH (22:17)
[2020-01-08] MEDS: HYDROcodone-ACET 5/325MG TAB PO PRN (22:18)
[2020-01-08] MEDS: APIXABAN 5 MG TAB PO SCH (22:18)
[2020-01-08] MEDS: BENAZEPRIL HCL 10 MG TAB PO SCH (22:19)
[2020-01-08] MEDS ORDERED: DEXTROSE (50%) 50ML SYRG IV PRN (22:45)
--- NOTE | 2020-01-08 22:49 | NUR ---
Hospitalist called back Received order for accu check ACHS and mild sliding scale insulin. Orders read back and verified and input. Addendum: 01/09/20 at 0003 by Radha Rosen RN Additionally received diet order for consistent carb diet at this time.
[2020-01-08] MEDS: InsuLIN REG 1unit/0.01ml Soln (100units/ml) SC SCH (23:00)
[2020-01-08] MEDS: ACCU-CHEK COMFORT CURVE STRIP VI SCH (23:18)
[2020-01-09] MEDS: VANCOMYCIN 1GM/250ML 250 ML IV SCH ×2 (03:54→16:16)
[2020-01-09] MEDS: MORPHINE SULF INJ 2 MG/ML SYRINGE 1ML IV PRN (04:17)
[2020-01-09 05:00] VITALS: BP 147/80
--- NOTE | 2020-01-09 05:36 | NUR ---
Wound care and pictures Wound pictures taken for reference, wound consult already placed from ED. Wound care performed: right calf cleansed with wound cleanser and dressed with nonadhesive pad and wrapped in krillex; right and left heel wounds cleansed and dressed in optifoam; sacrum cleansed after BM noted applied zgaurd and sacral optifoam gentle applied. Patient turned on left side and repositioned for comfort. Patient tolerated intervention well. Will continue to monitor.
[2020-01-09] MEDS: GABAPENTIN 300 MG CAP PO SCH ×3 (06:05→22:24)
[2020-01-09] MEDS: ACCU-CHEK COMFORT CURVE STRIP VI SCH ×4 (06:21→22:14)
[2020-01-09] MEDS: InsuLIN REG 1unit/0.01ml Soln (100units/ml) SC SCH ×4 (06:29→22:00)
--- NOTE | 2020-01-09 06:47 | NUR ---
UA sent to lab per MD order.
[2020-01-09 06:56] LABS: Urine Bacteria NONE SEEN /hpf (None Seen); Urine Blood Negative /uL (Negative); Urine Specific Gravity 1.019 (1.001-1.035); Urine WBC 1 /hpf (0 - 3)
[2020-01-09 08:00] VITALS: BP 113/61
[2020-01-09] MEDS: HYDROcodone-ACET 5/325MG TAB PO PRN (08:25)
[2020-01-09 09:00] VITALS: BP 113/61
[2020-01-09] MEDS ORDERED: ATENOLOL 25 MG TAB PO SCH (10:00)
[2020-01-09] MEDS: BENAZEPRIL HCL 10 MG TAB PO SCH ×2 (10:42→22:29)
[2020-01-09] MEDS: CARVEDILOL 3.125 MG TAB PO SCH ×2 (10:43→22:00)
[2020-01-09] MEDS: APIXABAN 5 MG TAB PO SCH ×2 (10:43→22:00)
[2020-01-09] MEDS: FAMOTIDINE 20 MG TAB PO SCH (10:47)
[2020-01-09] MEDS: CLOPIDOGREL BISULFATE 75 MG TAB PO SCH (10:47)
--- NOTE | 2020-01-09 11:30 | NUR ---
WOUND CARE NOTE: IN TO SEE PATIENT AT THIS TIME PER WOUND CARE CONSULT REQUEST. PATIENT RECENTLY ADMITTED TO [facility] WITH DIAGNOSIS OF CELLULITIS. CURRENT DEEJAY SCORE IS 12. WOUND PHOTOS TAKEN IN ER, AND AGAIN UPON ADMIT, BY BEDSIDE NURSE FOR REFERENCE. PATIENT HAS MULTIPLE CO-MORBIDITIES, INCLUDING: PERIPHERAL ARTERIAL DISEASE, BILATERAL BLACK ESCHAR HEEL PRESSURE INJURIES, DIABETES MELLITUS (INSULIN DEPENDENT), HYPERTENSION, HISTORY WITH CVA, RIGHT UPPER EXTREMITIE HEMIPLEGIA, MODERATE PROTEIN MALNUTRITION; CKD, STAGE III, STAGE 4 PRESSURE INJURY TO RIGHT LATERAL CALF. PATIENT IS BEING FOLLOWED BY DIETARY FOR HIS MALNUTRITION/PRESSURE INJURIES. CORRESPONDENCE SPECIALIST, DR. LORD HAS ASKED FOR PATIENT TO HAVE A WOUND VAC APPLIED TO HIS STAGE 4 PRESSURE INJURY TO THE RIGHT LATERAL CALF. PATIENT IS NOTED TO HAVE A 11 X 1.5 X 1 CM FULL THICKNESS WOUND TO THE RIGHT LATERAL CALF. PATIENT STATES THAT HE HAS HAD THIS WOUND FOR AT LEAST 12 MONTHS. WOUND IS DRAINING LIGHT SEROUS DRAINAGE, WOUND BED IS PALE RED. MUSCLE IS NOTED IN WOUND BED, NO PALPABLE BONE NOTED. PERIWOUND IS PALE RED COLLAGEN SCAR NOTED. PRELIMINARY WOUND CULTURE IS DEMONSTRATING GRAM NEGATIVE ORGANISMS, POSSIBLE ENTEROCOCCUS. SENSITIVITY IS STILL PENDING. PATIENT CURRENTLY RECEIVING IV VANCOMYCIN WHILE IN HOUSE. NEW WOUND PHOTO TAKEN AT THIS TIME FOR REFERENCE. APPLIED WOUND VAC DRESSING PER MD ORDER. PATIENT TOLERATED DRESSING CHANGE WELL, NOTING MINIMAL 2/10 PAIN UPON PALPATION. PATIENT ALSO HAS UNSTAGEABLE BLACK ESCHAR BILATERAL HEELS, WITH STABLE BLACK ESCHAR NOTED, NO OPEN OR DRAINING AREAS NOTED. PATIENT WEARING SANDRA FOAM BOOTS TO OFFLOAD HEELS, NO DRESSINGS NEEDED AT THIS TIME. PATIENT ALSO NOTED TO HAVE PINK COLLAGEN SCARS NOTED TO SACRUM, WITH NO OPEN OR DRAINING WOUNDS NOTED. APPLIED OPTIFOAM GENTLE SACRAL DRESSING TO UPPER SACRUM PREVENTATIVE. SPECIALTY AIR MATTRESS ORDERED. PATIENT TO BE PLACED, PENDING DELIVERY BY [facility]. RECOMMEND: FREQUENT TURN SCHEDULE Q 2 HOURS, PRN CONDITION PERMITS, WITH PRESSURE REDISTRIBUTION USING PILLOWS/WEDGES, SPECIALTY AIR MATTRESS, SANDRA FOAM BOOTS TO BILATERAL FEET/HEELS, BID/PRN APPLICATION WITH MOISTURE BARRIER CREAM, OPTIFOAM GENTLE SACRAL DRESSING, WOUND VAC DRESSING TO RIGHT LATERAL CALF, SKIN/WOUND CARE PLAN, DIETARY CONSULT (FOLLOWING), CONTINUED MONITORING BY WOUND CARE TEAM. [facility].[employer]. THERAPY INSURANCE AUTHORIZATION FORM COMPLETED, ALL PERTINENT DOCUMENTATION ATTACHED, PLACED IN FRONT OF PATIENT'S CHART FOR EMISSIONS INSPECTOR ACTION. Addendum: 01/09/20 at 1751 by Twila Noe RN Amended: Links added.
[2020-01-09 13:00] VITALS: BP 115/68
--- NOTE | 2020-01-09 14:30 | NUR ---
PICC line placement Patient/Patient significant other educated on need for PICC line placement. All risks and benefits explained and all questions and concerns addressed prior to procedure. Noted past medical history and allergies with no contraindications. INR and Plt counts within acceptable range. 5 fr PICC line inserted via LEFT BASILIC vein using [employer] US and Tip Location System. Sterile technique with maximum barrier precautions utilized. Blood return obtained from THE SINGLE lumen and each flushed easily with NS using proper technique. PICC secured with Stat-lock; biodisc and occlusive dressing applied. Stat portable chest x-ray obtained for PICC tip placement. *Baseline Arm Circumference 30 CM INTERNAL LENGTH 46 CM EXTERNAL 0 CM PICC lot # [id number]
--- NOTE | 2020-01-09 14:33 | NUR ---
Nutrition Consult/assessment Note: Please see attached link for complete assessment Est energy needs BW [id number] kcal (23-25 kcal/kg BW) Est protein needs 81-97g (1.0-1.2g/kg BW r/t wounds) Will reassess prn. Addendum: 01/09/20 at [address] Amended: Links added.
[2020-01-09] MEDS ORDERED: LIDOCAINE 1% (LOCAL ANESTH.) PF 5ml SDV ID ONE (14:45)
[2020-01-09] MEDS: amLODIPine BESYLATE 5 MG TAB PO SCH (16:04)
[2020-01-09 17:00] VITALS: BP 107/66
--- NOTE | 2020-01-09 19:20 | NUR ---
Opening Shift Note Assumed care of patient after receiving report from day RN. Patient is awake and alert with no S/S of distress/SOB or pain. Call light within reach, bed in lowest locked position x2 side rails up for safety. Instructed on POC and to call for assist PRN, will continue to monitor for changes Q1hr and PRN.
[2020-01-09 22:00] VITALS: BP 131/73
--- NOTE | 2020-01-09 22:12 | NUR ---
Medication held for procedure 22:00 scheduled Eliquis held at this time per protocol for LE angiogram tomorrow with Dr. Ham. Will continue to monitor.
[2020-01-09] MEDS: SODIUM CHLOR 0.9% PF (SALINE LOCK) 10ML VIAL/SYR IV SCH (22:14)
[2020-01-09] MEDS: ATORVASTATIN 20 MG TAB PO SCH (22:24)
--- NOTE | 2020-01-09 22:28 | NUR ---
Medication Held Scheduled 22:00 Coreg held at this time. BP 131/73 and HR 57. Spoke with KYARA Craig; explained patients decreased heart rate and 2 scheduled BP medications, per Rafa, hold Coreg and give Lotensin as scheduled. Will administer Lotensin and hold Coreg at this time. Will reassess and continue to monitor.
--- NOTE | 2020-01-09 23:45 | NUR ---
Specialty mattress Patient was transferred to specialty mattress per order. Patient tolerated intervention well.
--- NOTE | 2020-01-10 04:10 | NUR ---
Called pharmacy, had vancomycin rescheduled for 05:00. Still waiting for vanco trough that was scheduled for 03:00. Will continue to monitor.
--- NOTE | 2020-01-10 04:38 | NUR ---
CHG wipes and linen change performed. Patient tolerated intervention well.
--- NOTE | 2020-01-10 04:57 | NUR ---
Vancomycin held per lab Scheduled Vancomycin held per lab value parameter. Vanco trough of 26.2.
[2020-01-10 05:00] VITALS: BP 104/62
[2020-01-10] MEDS ORDERED: VANCOMYCIN 1GM/250ML 250 ML IV SCH (05:00)
[2020-01-10] MEDS: ACCU-CHEK COMFORT CURVE STRIP VI SCH ×4 (06:15→22:53)
[2020-01-10] MEDS: GABAPENTIN 300 MG CAP PO SCH ×3 (06:31→22:52)
[2020-01-10] MEDS: InsuLIN REG 1unit/0.01ml Soln (100units/ml) SC SCH ×4 (06:48→22:00)
[2020-01-10 08:00] VITALS: BP 110/51
[2020-01-10 09:00] VITALS: BP 110/51
[2020-01-10] MEDS: APIXABAN 5 MG TAB PO SCH ×2 (10:00→22:48)
[2020-01-10] MEDS: CARVEDILOL 3.125 MG TAB PO SCH ×2 (10:00→22:48)
--- NOTE | 2020-01-10 10:15 | NUR ---
WOUND CARE NOTE: IN TO CHECK FUNCTION OF WOUND VAC DRESSING TO RIGHT LATERAL CALF AT THIS TIME. PATIENT'S VAC IS INTACT, RUNNING AT 125 MM/HG CONTINUOUS. GOOD SUCTION, NO LEAKS DETECTED. WOUND CARE TEAM WILL CONTINUE TO MONITOR.
[2020-01-10] MEDS: FAMOTIDINE 20 MG TAB PO SCH (10:20)
[2020-01-10] MEDS: CLOPIDOGREL BISULFATE 75 MG TAB PO SCH (10:20)
[2020-01-10] MEDS: amLODIPine BESYLATE 5 MG TAB PO SCH (10:30)
[2020-01-10] MEDS: BENAZEPRIL HCL 10 MG TAB PO SCH ×2 (10:31→22:52)
--- NOTE | 2020-01-10 10:35 | NUR ---
Patient to microbiological lab technician per bed accompanied by microbiological lab technician staff in stable condition. Patient has been npo since after midnight and po medications given as per protocol.
[2020-01-10] MEDS: SODIUM CHLOR 0.9% PF (SALINE LOCK) 10ML VIAL/SYR IV SCH ×2 (10:36→22:47)
--- NOTE | 2020-01-10 11:28 | NUR ---
1115 01/10/20 - Faxed to IVANNA EJSSICA at [phone] face sheet, order for wound vac ([employer]), H/P, wound care notes. Requesting authorization for wound vac. Pending review and delivery of wound vac to patient.
[2020-01-10] MEDS ORDERED: IOHEXOL 350 MG/ML 100ML IJ ONE (12:57)
[2020-01-10] MEDS ORDERED: LIDOCAINE 2%HCL (LOCAL ANESTH.) INJ 20ML MDV ONE (12:57)
[2020-01-10] MEDS ORDERED: fentaNYL CITRATE 100 MCG/2 ML VL ONE (13:03)
[2020-01-10] MEDS ORDERED: ANGIOMAX 250 MG VIAL IV ONE (13:03)
[2020-01-10] MEDS ORDERED: MIDAZOLAM HCL 1MG/1ML-2 ML VIAL ONE (13:03)
[2020-01-10] MEDS ORDERED: SODIUM CHL 0.9% 0 ML ONE (13:04)
[2020-01-10] MEDS ORDERED: diphenhdrAMINE HCL 50 MG/1 ML VL ONE (13:22)
--- NOTE | 2020-01-10 14:30 | NUR ---
PATIENT RETURNED PER BED FROM AUTOMOBILE SERVICE STATION MECHANIC S/P BLE ANGIOGRAM ACCOMPANIED BY AUTOMOBILE SERVICE STATION MECHANIC STAFF. PATIENT NOTED TO BE SLEEPY BUT RESPONDING APPROPRIATELY WHEN SPOKEN TO. PATIENT FLAT IN BED UNTIL 1600 PER REPORT RECEIVED FROM GHADA DAVIS BY PHONE. DRESSINGS TO LEFT GROIN AREA NOTED TO BE CLEAN, DRY AND INTACT AND AREA FELT SOFT TO TOUCH AND NO BLEEDING, HEMATOMA ON THE SITE NOTED. WILL CONTINUE TO MONITOR PATIENT.
--- NOTE | 2020-01-10 14:43 | NUR ---
0380 01/10/20 Faxed to [facility] at [phone] - face sheet, order for home health and wound vac ([employer]), wound care notes, requesting authorization for wound vac. Spoke with [facility] field case manager Grace at [phone], who stated they will have to established an FRANK with [employer] which will take at least 2 days before she will be able to provide an authorization.
--- NOTE | 2020-01-10 16:20 | NUR ---
[facility] for wound vac. Unable to assess patient due to patient getting a procedure will follow up in the morning.
[2020-01-10 17:00] VITALS: BP 145/73
--- NOTE | 2020-01-10 20:00 | NUR ---
Opening Shift Note Assumed care of patient, awake and alert x 4. No S/S of distress/SOB or pain. [place] boots in place tele box matches patient all leads in place. Bed lowered and locked side rails up x 2. Call light and beside table within reach. Instructed on POC and to call for assist PRN, will continue to monitor for changes Q1hr and PRN.
[2020-01-10 22:00] VITALS: BP 141/79
[2020-01-10] MEDS: ATORVASTATIN 20 MG TAB PO SCH (22:51)
[2020-01-11 05:00] VITALS: BP 104/59
[2020-01-11] MEDS: GABAPENTIN 300 MG CAP PO SCH ×3 (05:40→22:28)
[2020-01-11] MEDS: ACCU-CHEK COMFORT CURVE STRIP VI SCH ×4 (06:35→22:28)
[2020-01-11] MEDS: InsuLIN REG 1unit/0.01ml Soln (100units/ml) SC SCH ×4 (06:36→22:00)
[2020-01-11 09:00] VITALS: BP 102/63
--- NOTE | 2020-01-11 09:16 | NUR ---
WOUND VAC CHECK: Wound care in for wound vac daily monitoring. Patient is resting in bed Rm. 295A. Patient's Rt calf wound vac dressing remain intact and connected to Ulta Vac, functioning well at 125 mmHg continuos as ordered. Good seal noted, no leak detected. 25 mL clear serous drainage noted in canister. Will continue to monitor.
[2020-01-11] MEDS: CARVEDILOL 3.125 MG TAB PO SCH ×2 (10:00→22:26)
[2020-01-11] MEDS ORDERED: ERTAPENEM SOD INJ 1 GM in SODIUM CHL 0.9% 50 ML IV ONE (11:30)
[2020-01-11] MEDS: FAMOTIDINE 20 MG TAB PO SCH (11:37)
[2020-01-11] MEDS: SODIUM CHLOR 0.9% PF (SALINE LOCK) 10ML VIAL/SYR IV SCH ×2 (11:37→22:00)
[2020-01-11] MEDS: BENAZEPRIL HCL 10 MG TAB PO SCH ×2 (11:38→22:27)
[2020-01-11] MEDS: APIXABAN 5 MG TAB PO SCH ×2 (11:38→22:26)
[2020-01-11] MEDS: CLOPIDOGREL BISULFATE 75 MG TAB PO SCH (11:39)
[2020-01-11] MEDS: amLODIPine BESYLATE 5 MG TAB PO SCH (11:39)
[2020-01-11 13:00] VITALS: BP 123/61
--- NOTE | 2020-01-11 13:59 | NUR ---
Assessment Patient is a 69-year-old male who is alert and oriented. Patient primary language is Bulgarian. Per patient prior to admission patient lived home with family and functioned independently. Per patient his family helps him with this ADL's. Per patient he has a wheelchair. Per patient he will return home to his prior living arrangements post discharge. Per patient he has transportation benefits with his health plan and usually they arrange transportation for him. Advised patient there is a social service consult for home health wound care, wound vac. Patient has [facility] and would like to resume service. Informed patient he has the right to participate in all discharge planning. Patient verbalized understanding and agreed to discharge plan. Faxed clinical information to [facility] and [facility]. Per Valorie with [email or web address] patient has been accepted and service to start within 24-48hrs upon d.c day. Per KEVIN Cash [facility] is working on a letter of agreement with [facility] before they can deliver WOUND VAC to patient. Addendum: 01/11/20 at 1417 by CANDICE CANELA Amended: Links added.
[2020-01-11] MEDS ORDERED: VANCOMYCIN 500 MG in D5W 5% 100 ML IV ONE (16:00)
--- NOTE | 2020-01-11 16:07 | NUR ---
1415 01/11/2020 - Received a call from [facility] rep Pate who stated the has sent the request to [facility] patient's insurance requesting authorization. Rio also stated that he is aware of the pending completion of the Letter of Agreement.
[2020-01-11 17:00] VITALS: BP 131/67
--- NOTE | 2020-01-11 19:45 | NUR ---
Opening Shift Note Assumed care of patient, awake and alert x 4. No S/S of distress/SOB or pain. Tele box matches pt all leads in place. Patient's right calf wound vac dressing remains intact and connected to Ulta Vac, functioning well at 125 mmHg continuos per order. Good seal noted, no leak detected. Will continue to monitor. Bed lowered and locked side rails x 2. Call light and bedside table within reach. Instructed on POC and to call for assist PRN, will continue to monitor for changes Q1hr and PRN.
[2020-01-11 22:00] VITALS: BP 146/81
[2020-01-11] MEDS: ATORVASTATIN 20 MG TAB PO SCH (22:27)
[2020-01-12 05:00] VITALS: BP 144/69
[2020-01-12] MEDS: GABAPENTIN 300 MG CAP PO SCH ×3 (05:59→22:08)
[2020-01-12 06:23] LABS: Basophils # (auto) 0.1 10 ^3/uL (0-0.2); Basophils % (auto) 0.9 % (0.0-2.0); Eosinophils # (auto) 0.6 10 ^3/uL (0-0.8); Hematocrit 27.1 % (41.0-53.0); Lymphocytes % (auto) 24.3 % (10.0-50.0); Mean Corpuscular Hemoglobin 30.4 pg (28.0-32.0); Mean Corpuscular Hgb Conc. 33.2 g/dL (32.0-36.0); Mean Corpuscular Volume 91.6 fL (80.0-100.0); Monocytes # (auto) 0.8 10 ^3/uL (0-1.3); Monocytes % (auto) 10.3 % (0.0-12.0); Neutrophils # (auto) 4.7 10 ^3/uL (1.6-8.6); Neutrophils % (auto) 57.5 % (37.0-80.0); Nucleated Red Blood Cells % 0.1 %; Platelet Count (auto) 278 10^3/uL (140-450); Red Blood Cells 2.96 10^6/uL (4.5-5.90); White Blood Cell 8.1 10^3/uL (4.4-10.8)
[2020-01-12] MEDS: ACCU-CHEK COMFORT CURVE STRIP VI SCH ×4 (06:23→22:09)
[2020-01-12] MEDS: InsuLIN REG 1unit/0.01ml Soln (100units/ml) SC SCH ×4 (06:23→22:00)
[2020-01-12 07:02] LABS: Calcium 8.8 mg/dL (8.5-10.1); Potassium 4.1 mmol/L (3.5-5.1)
[2020-01-12 07:04] LABS: BUN/Creatinine Ratio 28.4
--- NOTE | 2020-01-12 07:15 | NUR ---
ASSUMED CARE OF PATIENT ALERT AND AWAKE. RESPIRATIONS EVEN AND UNLABORED. CONTACT PRECAUTIONS IN PLACE AT THIS TIME. UPDATED PATIENT ON POC. NO SIGNS OF DISTRESS AT THIS TIME. BED LOCKED IN LOWEST POSITION, HOB ELEVATED AT LEAST 30 DEGREES, SIDE RAILS UP X 2 AND CALL LIGHT IS WITHIN REACH.
[2020-01-12 09:00] VITALS: BP 105/61
[2020-01-12] MEDS: ERTAPENEM SOD INJ 1 GM in SODIUM CHL 0.9% 50 ML IV SCH (09:01)
[2020-01-12] MEDS: APIXABAN 5 MG TAB PO SCH ×2 (09:07→22:08)
[2020-01-12] MEDS: FAMOTIDINE 20 MG TAB PO SCH (09:08)
[2020-01-12] MEDS: CLOPIDOGREL BISULFATE 75 MG TAB PO SCH (09:08)
[2020-01-12] MEDS: MORPHINE SULF INJ 2 MG/ML SYRINGE 1ML IV PRN (09:09)
[2020-01-12] MEDS: SODIUM CHLOR 0.9% PF (SALINE LOCK) 10ML VIAL/SYR IV SCH ×2 (09:09→22:07)
[2020-01-12] MEDS: CARVEDILOL 3.125 MG TAB PO SCH ×2 (10:00→22:08)
[2020-01-12] MEDS: BENAZEPRIL HCL 10 MG TAB PO SCH ×2 (10:07→22:08)
[2020-01-12] MEDS: amLODIPine BESYLATE 5 MG TAB PO SCH (10:07)
--- NOTE | 2020-01-12 10:15 | NUR ---
ASSISTED WOUND CARE NURSE WITH WOUND VACC DRESSING CHANGE. PATIENT TOLERATED WELL. CONTINUE CARE.
--- NOTE | 2020-01-12 10:28 | NUR ---
WOUND CARE NOTE: Wound care in to change patient's Rt lower leg wound vac dressing per MD order. Patient continue resting on air mattress in Rm. 295A. Patient is awake, alert and oriented. He's premedicated for pain by his bedside nurse prior dressing change. His Rios score is 16. Removed patient's RLE wound vac dressing. Patient's Rt lateral calf continue to display open full thickness wound measuring 9x2x0.7cm. Wound bed is red with granulation tissue noted and minimal yellow slough. Elena wound is pink, minimal serous drainage noted. Canister noted with 50 mL clear serous drainage. No odor noted. Cleansed patient's Rt lateral calf wound with wound cleanser,patted dry with gauze. New photograph of wound are taken for reference. Applied skin protectant to elena wound. Applied transparent drape. Fill wound cavity with one piece black GranuFoam dressing, secured with transparent drape. Applied trac pad and connected tubings. Run wound vac at 125 mmHg continuos as MD ordered. Good seal noted, no leak detected. Patient tolerated well. Bed in low position, call lewis on hand with all safety precautions in placed. Will continue to monitor. Addendum: 01/12/20 at 1316 by Martha Toney RN Amended: Links added.
--- NOTE | 2020-01-12 12:37 | NUR ---
DR GREEN' OFFICE CALLED. LEFT MESSAGE REGARDING IF THIS PATIENT IS CLEARED FOR DISCHARGE. AWAITING CALL BACK. CONTINUE CARE.
--- NOTE | 2020-01-12 12:54 | NUR ---
Nutrition Followup Note Wt 78.6 kg Pt`s sleeping with no family by bedside. per records pt with osteomyelitis. pt is currently on CCHO 60 gm cardiac diet with adequate Po of 75% x 6 per RN doc Est energy needs BW [id number] kcal (23-25 kcal/kg BW) Est protein needs 81-97g (1.0-1.2g/kg BW r/t wounds) Will reassess prn. Labs: BUN 33 H rest lab wnl BM: Pt had 1 BM yesterday per RN doc Skin: BS 16 mod risk, full details in career center director note PES: Altered nutrition related lab values r.t current chronic medical condition aeb elev BUN mod hypoalb hyperglycemia Comments: Will continue to monitor PO intake, skin status. F/u high 3-5 days Rec: 1) consider mVI/C bid. 2) refer to CDE on dc. 4) continue current plan of care
[2020-01-12 13:00] VITALS: BP 140/67
--- NOTE | 2020-01-12 13:21 | NUR ---
PATIENT ACCIDENTLY PULLED OUT IV CATHETER AT LEFT HAND. CATHETER FULLY INTACT AND PLACED IN SHARPS CONTAINER. DRESSING APPLIED TO RIGHT HAND. NO DISTRESS NOTED AT THIS TIME.
--- NOTE | 2020-01-12 13:33 | NUR ---
DR GREEN CALLED BACK. VERBALIZED THAT THIS PATIENT IS CLEARED FOR DISCHARGE. CONTINUE CARE.
--- NOTE | 2020-01-12 17:00 | NUR ---
DRESSING CHANGE APPLIED TO SACRUM. PATIENT TOLERATED WELL. CONTINUE CARE.
[2020-01-12 17:26] VITALS: BP 134/74
--- NOTE | 2020-01-12 19:21 | NUR ---
ENDORSED CARE TO NOC SHIFT RN
--- NOTE | 2020-01-12 19:30 | NUR ---
Opening Shift Note Assumed care of patient, awake and alert. No S/S of distress/SOB or pain. Instructed on POC and to call for assist PRN, will continue to monitor for changes Q1hr and PRN.
[2020-01-12 20:00] VITALS: BP 156/78
[2020-01-12 22:00] VITALS: BP 156/78
[2020-01-12] MEDS: ATORVASTATIN 20 MG TAB PO SCH (22:08)
[2020-01-13 05:00] VITALS: BP 135/75
[2020-01-13] MEDS: ACCU-CHEK COMFORT CURVE STRIP VI SCH ×4 (05:58→21:52)
[2020-01-13] MEDS: GABAPENTIN 300 MG CAP PO SCH ×3 (05:58→21:51)
[2020-01-13] MEDS: InsuLIN REG 1unit/0.01ml Soln (100units/ml) SC SCH ×4 (05:58→21:53)
--- NOTE | 2020-01-13 07:20 | NUR ---
ASSUMED CARE OF PATIENT RESTING WITH EYES CLOSED. RESPIRATIONS EVEN AND UNLABORED AT THIS TIME. HOB ELEVATED AT LEAST 30 DEGREES, SIDE RAILS UP X 2, BED LOCKED IN THE LOWEST POSITION, CALL LIGHT IS WITHIN REACH. CONTACT PRECAUTIONS IN PLACE AT THIS TIME. WILL CONTINUE TO MONITOR.
--- NOTE | 2020-01-13 08:12 | NUR ---
WOUND VAC CHECK: Wound care in for wound vac daily monitoring. Patient continue resting in bed Rm. 295A. Patient's Rt calf wound vac dressing remain intact and connected to Ulta Vac, functioning well at 125 mmHg continuos as ordered. Good seal noted, no leak detected. Patient is awaiting delivery of Home wound vac. Will continue to monitor.
[2020-01-13 08:44] VITALS: BP 128/63
[2020-01-13] MEDS: ERTAPENEM SOD INJ 1 GM in SODIUM CHL 0.9% 50 ML IV SCH (09:32)
[2020-01-13] MEDS: APIXABAN 5 MG TAB PO SCH ×2 (09:32→21:50)
[2020-01-13] MEDS: SODIUM CHLOR 0.9% PF (SALINE LOCK) 10ML VIAL/SYR IV SCH ×2 (09:32→21:50)
[2020-01-13] MEDS: BENAZEPRIL HCL 10 MG TAB PO SCH ×2 (09:33→22:03)
[2020-01-13] MEDS: amLODIPine BESYLATE 5 MG TAB PO SCH (09:34)
[2020-01-13] MEDS: FAMOTIDINE 20 MG TAB PO SCH (09:34)
[2020-01-13] MEDS: CLOPIDOGREL BISULFATE 75 MG TAB PO SCH (09:34)
[2020-01-13] MEDS: CARVEDILOL 3.125 MG TAB PO SCH ×2 (10:00→22:03)
--- NOTE | 2020-01-13 11:10 | NUR ---
MD ROUNDS WITH DR ALVAREZ. DR ALVAREZ VERBALIZED THAT HE WOULD PUT IN ORDERS FOR ZYVOX FOR THIS PATIENT THAT HE PLANS TO DISCHARGE THIS PATIENT IN THE MORNING.
[2020-01-13 12:48] VITALS: BP 112/69
[2020-01-13 16:41] VITALS: BP 129/75
--- NOTE | 2020-01-13 19:18 | NUR ---
ENDORSED CARE TO NOC SHIFT RN
[2020-01-13 20:00] VITALS: BP 139/70
[2020-01-13] MEDS: ATORVASTATIN 20 MG TAB PO SCH (21:50)
[2020-01-13] MEDS: LINEZOLID 600MG TABLET PO SCH (21:51)
[2020-01-13 22:00] VITALS: BP 139/78
[2020-01-14 05:00] VITALS: BP 138/69
[2020-01-14] MEDS: InsuLIN REG 1unit/0.01ml Soln (100units/ml) SC SCH ×4 (06:36→21:49)
[2020-01-14] MEDS: GABAPENTIN 300 MG CAP PO SCH ×3 (06:36→21:20)
[2020-01-14] MEDS: ACCU-CHEK COMFORT CURVE STRIP VI SCH ×4 (06:36→21:49)
--- NOTE | 2020-01-14 09:00 | NUR ---
WOUND VAC CHECK: Wound care in for wound vac daily monitoring. Patient continue resting in bed Rm. 295A. Patient's Rt calf wound vac dressing remain intact and connected to Ulta Vac, functioning well at 125 mmHg continuous as ordered. Good seal noted, no leak detected. Patient is awaiting delivery of Home wound vac. Will continue to monitor.
[2020-01-14] MEDS: APIXABAN 5 MG TAB PO SCH ×2 (09:10→21:20)
[2020-01-14] MEDS: SODIUM CHLOR 0.9% PF (SALINE LOCK) 10ML VIAL/SYR IV SCH ×2 (09:10→21:20)
[2020-01-14] MEDS: ERTAPENEM SOD INJ 1 GM in SODIUM CHL 0.9% 50 ML IV SCH (09:10)
[2020-01-14] MEDS: BENAZEPRIL HCL 10 MG TAB PO SCH ×2 (09:11→21:19)
[2020-01-14] MEDS: FAMOTIDINE 20 MG TAB PO SCH (09:12)
[2020-01-14] MEDS: CLOPIDOGREL BISULFATE 75 MG TAB PO SCH (09:12)
[2020-01-14] MEDS: amLODIPine BESYLATE 5 MG TAB PO SCH (09:12)
[2020-01-14] MEDS: LINEZOLID 600MG TABLET PO SCH ×2 (09:13→21:49)
[2020-01-14] MEDS: DOCUSATE SOD 100 MG CAP PO PRN ×2 (09:15→21:20)
[2020-01-14 09:22] VITALS: BP 115/68
--- NOTE | 2020-01-14 09:48 | NUR ---
D/C Planning Regarding social service consult for home health IV abx Invanz 1 g IV daily for 1 month. Faxed clinical information to [facility]. Per Valorie with [facility] order has been received and they will see patient within 24-48hrs upon d/c day. WOUND VAC will be deliver to bedside once Health [employer] completes letter of agreement. KEVIN Cash will complete IV abx and will follow up with patient health plan for the letter of agreement to [facility]. For Bedside nurse to follow up with KEVIN Cash regarding IV abx and Wound VAC.
[2020-01-14] MEDS: CARVEDILOL 3.125 MG TAB PO SCH ×2 (10:00→21:19)
[2020-01-14 12:58] VITALS: BP 142/73
--- NOTE | 2020-01-14 15:01 | NUR ---
1415 01/14/20 - Contacted by IVANNA Edwards who provided authorization [id number] for [employer] home wound vac. Informed SS Ro of above info.
--- NOTE | 2020-01-14 16:39 | NUR ---
1625 01/14/20- Contacted [facility] [employer] dept at [phone] ext [phone], set up milk pickup truck driver time of 1300 01/15/20 the confirmation number is [id number]. Faxed to [employer] [facility] at [phone] face sheet, order for home IV ABx, H/P, labs, meds, PICC line notes. Contacted by [facility] resident services coordinator who stated she would contact patient and discuss delivery of IV supplies to home. Pending delivery of supplies to patient's home.
[2020-01-14 16:46] VITALS: BP 138/70
--- NOTE | 2020-01-14 17:00 | NUR ---
spoke with counseling case manager siri. Siri verbalized that she has set up transport for this patient for 1300 on 01/15/20. She verbalized that this may changed if the patient has not received thier wound vacc from [facility] by 1300.
--- NOTE | 2020-01-14 19:29 | NUR ---
ENDORSED CARE TO NOC SHIFT RN
--- NOTE | 2020-01-14 20:00 | NUR ---
Opening Shift Note Assumed care of patient, awake and alert. No S/S of distress/SOB or pain. Instructed on POC and to call for assist PRN, will continue to monitor for changes Q1hr and PRN.Wound vac. on.
[2020-01-14] MEDS: ATORVASTATIN 20 MG TAB PO SCH (21:18)
[2020-01-14 22:00] VITALS: BP 155/79
[2020-01-15 05:00] VITALS: BP 122/64
[2020-01-15] MEDS: GABAPENTIN 300 MG CAP PO SCH ×2 (05:39→14:20)
[2020-01-15] MEDS: InsuLIN REG 1unit/0.01ml Soln (100units/ml) SC SCH ×2 (06:16→11:30)
[2020-01-15] MEDS: ACCU-CHEK COMFORT CURVE STRIP VI SCH ×2 (06:16→11:30)
--- NOTE | 2020-01-15 07:31 | NUR ---
Report given to Ajay Keller, patient is resting no distress, awaiting for wound vac. to go home.
[2020-01-15 08:00] VITALS: BP 121/59
--- NOTE | 2020-01-15 08:00 | NUR ---
Opening Shift Note Assumed care of patient, awake and alertx4. No S/S of distress/SOB or pain. Instructed on POC and to call for assist PRN. Bed at lowest locked position and call light within reach. Will continue to monitor for changes Q1hr and PRN.
[2020-01-15 09:38] VITALS: BP 121/59
[2020-01-15] MEDS: SODIUM CHLOR 0.9% PF (SALINE LOCK) 10ML VIAL/SYR IV SCH (10:00)
[2020-01-15] MEDS: ERTAPENEM SOD INJ 1 GM in SODIUM CHL 0.9% 50 ML IV SCH (10:47)
[2020-01-15] MEDS: BENAZEPRIL HCL 10 MG TAB PO SCH (10:50)
[2020-01-15] MEDS: CARVEDILOL 3.125 MG TAB PO SCH (10:50)
[2020-01-15] MEDS: APIXABAN 5 MG TAB PO SCH (10:50)
[2020-01-15] MEDS: CLOPIDOGREL BISULFATE 75 MG TAB PO SCH (10:51)
[2020-01-15] MEDS: LINEZOLID 600MG TABLET PO SCH (10:51)
[2020-01-15] MEDS: FAMOTIDINE 20 MG TAB PO SCH (10:51)
[2020-01-15] MEDS: amLODIPine BESYLATE 5 MG TAB PO SCH (10:51)
--- NOTE | 2020-01-15 11:30 | NUR ---
PAGED ELECTRONIC ENGINEERING TECHNICIAN REGARDING PATIENT'S HOME WOUND VAC
--- NOTE | 2020-01-15 12:20 | NUR ---
D/C trailer steerer Gabby advised me Wound Vac has not been deliver. Contact [facility] , spoke to Matilde. Per Matilde, Wesley will be contacting me back or KEVIN Cash with WOUND VAC delivery.
--- NOTE | 2020-01-15 12:22 | NUR ---
spoke to Ashley Osteopathic Resident regarding scrap picker time for patient and home wound vac delivery. Per Ashley, transportation pick-up is set for 1600 and [facility] has been contacted again for wound vac.
--- NOTE | 2020-01-15 12:30 | NUR ---
WOUND CARE NOTE: SPOKE WITH [employer] REP, MOSHE RICHMOND, REQUESTING STATUS OF HOME VAC. HE WILL PLACE AN EXPEDITE ON PROCESSING PAPERWORK, AND DELIVERY TO HOME VAC, AND WILL CALL WITH DORIE.
[2020-01-15 13:00] VITALS: BP 115/67
--- NOTE | 2020-01-15 13:00 | NUR ---
WOUND CARE NOTE: HOME VAC ETA IS WITHIN 1 TO 1.5 HOURS. FOOD SUPERVISOR WILL CALL ONCE AT [facility].
[2020-01-15 13:22] VITALS: BP 121/59
--- NOTE | 2020-01-15 14:00 | NUR ---
HOME WOUND VAC HAS BEEN DELIVERED AND SWITCHED. PATIENT TOLERATED WELL.
--- NOTE | 2020-01-15 14:15 | NUR ---
WOUND CARE NOTE: HOME VAC DELIVERED. EXCHANGED OUT HOSPITAL VAC WITH HOME VAC AT THIS TIME. PATIENT WILL BE DISCHARGING HOME SHORTLY.
--- NOTE | 2020-01-15 14:43 | NUR ---
1440 01/15/20 - Contacted vendor [employer] at [phone] [phone] requesting update on delivery of wound vac to patient at beside. [facility] education coordinator state he has sent a message to dispatch service requesting urgent response regarding ETA for wound vac. Currently no response from dispatch service on ETA.
--- NOTE | 2020-01-15 15:00 | NUR ---
spoke with Stacey WADDELL Angel, patient's son at [phone], 2informed him of discharge plan and transportation ETA.
--- NOTE | 2020-01-15 16:55 | NUR ---
Discharge instructions given as ordered. Encourage to follow up with PMD as instructed. All questions and concerns addressed. Patient verbalized understanding. Medication reconciliation form completed and copy given to patient. Home medications held in Pharmacy returned to patient. Telemetry unit returned to ICU. Patient taken to vehicle via gurney with all personal belongings, accompanied by this nurse and [facility] . No distress noted at time of departure. [facility] has been notified of discharge, left message and phone number. Addendum: 01/15/20 at 1700 by Jacquelyn Mccurdy RN home medications picked up from pharmacy and sent with patient.
== END 2020-01-15 17:00 | disposition home health service (06) | DRG 300 ==
LOC: ER 14:07 → EDBD 14:07 → TELE-WESTW 18:42
PROVIDERS: ADMIT Nurse Practitioner Acute Care; ATTEND Family Medicine
PROC: 02HV33Z Insertion of Infusion Device into Superior Vena Cava, Percutaneous Approach (ICD-10-PCS; principal; 2020-01-09)
PROC: B41G1ZZ Fluoroscopy of Left Lower Extremity Arteries using Low Osmolar Contrast (ICD-10-PCS; 2020-01-10)
PROC: B41F1ZZ Fluoroscopy of Right Lower Extremity Arteries using Low Osmolar Contrast (ICD-10-PCS; 2020-01-10)
DX: E11.51 Type 2 diabetes mellitus with diabetic peripheral angiopathy without gangrene (principal); L03.115 Cellulitis of right lower limb; L97.919 Non-pressure chronic ulcer of unspecified part of right lower leg with unspecified severity; E44.0 Moderate protein-calorie malnutrition; L97.929 Non-pressure chronic ulcer of unspecified part of left lower leg with unspecified severity; M86.8X6 Other osteomyelitis, lower leg; E11.69 Type 2 diabetes mellitus with other specified complication; S81.801A Unspecified open wound, right lower leg, initial encounter; N18.30 Chronic kidney disease, stage 3 unspecified; D64.9 Anemia, unspecified; E78.5 Hyperlipidemia, unspecified; I12.9 Hypertensive chronic kidney disease with stage 1 through stage 4 chronic kidney disease, or unspecified chronic kidney disease; E11.22 Type 2 diabetes mellitus with diabetic chronic kidney disease; F32.9 Major depressive disorder, single episode, unspecified; L89.626 Pressure-induced deep tissue damage of left heel; L89.616 Pressure-induced deep tissue damage of right heel; Z20.828 Contact with and (suspected) exposure to other viral communicable diseases; E78.00 Pure hypercholesterolemia, unspecified; X58.XXXA Exposure to other specified factors, initial encounter; B96.1 Klebsiella pneumoniae [K. pneumoniae] as the cause of diseases classified elsewhere; E11.42 Type 2 diabetes mellitus with diabetic polyneuropathy; F17.210 Nicotine dependence, cigarettes, uncomplicated; Z79.01 Long term (current) use of anticoagulants; Z74.01 Bed confinement status; Z79.02 Long term (current) use of antithrombotics/antiplatelets; Z79.4 Long term (current) use of insulin; Z79.899 Other long term (current) drug therapy; Z82.0 Family history of epilepsy and other diseases of the nervous system; Z82.49 Family history of ischemic heart disease and other diseases of the circulatory system; Z83.3 Family history of diabetes mellitus; Z88.0 Allergy status to penicillin; Y93.89 Activity, other specified; Y92.89 Other specified places as the place of occurrence of the external cause; Y99.8 Other external cause status; Z86.73 Personal history of transient ischemic attack (TIA), and cerebral infarction without residual deficits
CPT/HCPCS: 36415; 36569; 71045; 73700; 80048; 80053; 80202; 81001; 82565; 82962; 83605; 83880; 84484; 85025; 85610; 85730; 87040; 87077; 87186; 87205; 93005; 93926; 99152; G0378; J1335; J1815; J2250; J7060

== ENCOUNTER 2020-05-07 18:13 | Inpatient (IN) | payer OTHER ==
[~2020-05-07] VITALS: Ht 167.6 cm; Wt 85.1 kg
[~2020-05-07 18:13] MED LIST changes: -ALOG25TA OR; +AMLO-489 PO; -AMLO5TAB15 PO; -CLOP75TA28 PO; -CLOP75TA41 PO; +CLOP75TA70 PO; -OMEGCAP2 OR
[2020-05-07 18:46] LABS: Basophils # (auto) 0.1 10 ^3/uL (0-0.2); Basophils % (auto) 0.6 % (0.0-2.0); Eosinophils # (auto) 0.4 10 ^3/uL (0-0.8); Eosinophils % (auto) 2.7 % (0.0-7.0); Hemoglobin 11.1 g/dL (13.5-17.5); Lymphocytes # (auto) 1.7 10 ^3/uL (0.4-5.4); Lymphocytes % (auto) 12.3 % (10.0-50.0); Mean Corpuscular Hemoglobin 30.3 pg (28.0-32.0); Mean Corpuscular Hgb Conc. 32.8 g/dL (32.0-36.0); Mean Corpuscular Volume 92.4 fL (80.0-100.0); Monocytes # (auto) 1.3 10 ^3/uL (0-1.3); Monocytes % (auto) 9.5 % (0.0-12.0); Neutrophils # (auto) 10.4 10 ^3/uL (1.6-8.6); Neutrophils % (auto) 74.9 % (37.0-80.0); Platelet Count (auto) 301 10^3/uL (140-450); Red Blood Cells 3.68 10^6/uL (4.5-5.90); Red Cell Distribution Width 14.1 % (11.8-14.3); White Blood Cell 13.9 10^3/uL (4.4-10.8)
[2020-05-07] MEDS ORDERED: DOPamine 1600MCG/ML D5W 250 ML IV ONE (18:53)
[2020-05-07] MEDS ORDERED: SODIUM CHLORIDE 0.9% 500 ML IV ONE ×2 (19:00)
[2020-05-07 19:07] LABS: Albumin 2.5 g/dL (3.4-5.0); Anion Gap 5 (5-15); Blood Urea Nitrogen 33 mg/dL (7-18); Carbon Dioxide 22 mmol/L (21-32); Chloride 106 mmol/L (98-107); Glucose 117 mg/dL (74-106); Magnesium 2.2 mg/dL (1.6-2.6); Potassium 3.9 mmol/L (3.5-5.1); Sodium 133 mmol/L (136-145)
[2020-05-07] MEDS: DOPamine 1600MCG/ML D5W 250 ML IV SCH (19:11)
[2020-05-07 19:14] LABS: Alanine Aminotransferase 11 U/L (16-61); Alkaline Phosphatase 68 U/L (45-117); Aspartate Aminotransferase 7 U/L (15-37); Bilirubin, Total 0.4 mg/dL (0.2-1.0); GFR African American 79 mL/min; GFR Non-African American 66 mL/min; Total Protein 7.2 g/dL (6.4-8.2)
[2020-05-07] MEDS ORDERED: DOPamine 1600MCG/ML D5W 250 ML IV SCH (19:15)
[2020-05-07 19:58] LABS: BUN/Creatinine Ratio 28.2
[2020-05-07 20:16] LABS: Urine Bacteria FEW /hpf (None Seen); Urine Blood Negative /uL (Negative); Urine Hyaline Cast FEW /lpf (0 - 2); Urine Specific Gravity 1.023 (1.001-1.035); Urine WBC <1 /hpf (0 - 3)
[2020-05-08] VITALS (28 sets, daily range): BP systolic 91–184; BP diastolic 48–82
[2020-05-08] MEDS ORDERED: ACETAMINOPHEN 325 MG TAB PO ONE (01:00)
[2020-05-08] MEDS ORDERED: ATROPINE SULF 1 MG/10ml SYR IV ONE (02:15)
[2020-05-08] MEDS ORDERED: ATROPINE SULFATE 1 MG/1 ML VIAL ONE (02:21)
[2020-05-08] MEDS ORDERED: NITROGLYCERIN 0.4 MG SL TAB SL PRN (04:00)
[2020-05-08] MEDS ORDERED: ONDANSETRON HCL 4 MG/2 ML VIAL IV PRN (04:00)
[2020-05-08] MEDS ORDERED: ALBUMIN 5% 50 ML IV ONE (04:00)
[2020-05-08] MEDS ORDERED: MORPHINE SULF INJ 2 MG/ML SYRINGE 1ML IV PRN (04:00)
[2020-05-08] MEDS ORDERED: DEXTROSE (50%) 50ML SYRG IV PRN (04:00)
[2020-05-08] MEDS ORDERED: HYDROcodone-ACET 5/325MG TAB PO PRN (04:00)
[2020-05-08] MEDS ORDERED: DOCUSATE SOD 100 MG CAP PO PRN (04:00)
[2020-05-08] MEDS ORDERED: ACETAMINOPHEN 325 MG TAB PO PRN (04:00)
[2020-05-08] MEDS ORDERED: SODIUM BICARBONATE 8.4 % INJ 50ML VIAL IV ONE (04:45)
[2020-05-08] MEDS: SODIUM CHLOR 0.9% PF (SALINE LOCK) 10ML VIAL/SYR IV SCH ×3 (05:05→21:11)
[2020-05-08] MEDS: ACCU-CHEK COMFORT CURVE STRIP VI SCH ×4 (07:00→22:00)
[2020-05-08] MEDS: InsuLIN REG 1unit/0.01ml Soln (100units/ml) SC SCH ×4 (07:00→22:00)
[2020-05-08 07:27] LABS: Basophils # (auto) 0.1 10 ^3/uL (0-0.2); Basophils % (auto) 0.7 % (0.0-2.0); Eosinophils # (auto) 0.6 10 ^3/uL (0-0.8); Eosinophils % (auto) 4.9 % (0.0-7.0); Hematocrit 30.7 % (41.0-53.0); Hemoglobin 10.6 g/dL (13.5-17.5); Lymphocytes # (auto) 1.9 10 ^3/uL (0.4-5.4); Lymphocytes % (auto) 16.2 % (10.0-50.0); Mean Corpuscular Hemoglobin 31.5 pg (28.0-32.0); Mean Corpuscular Hgb Conc. 34.4 g/dL (32.0-36.0); Mean Corpuscular Volume 91.5 fL (80.0-100.0); Monocytes # (auto) 1.2 10 ^3/uL (0-1.3); Monocytes % (auto) 10.1 % (0.0-12.0); Neutrophils # (auto) 7.8 10 ^3/uL (1.6-8.6); Neutrophils % (auto) 68.1 % (37.0-80.0); Platelet Count (auto) 278 10^3/uL (140-450); Red Blood Cells 3.36 10^6/uL (4.5-5.90); Red Cell Distribution Width 14.2 % (11.8-14.3); White Blood Cell 11.5 10^3/uL (4.4-10.8)
[2020-05-08 07:45] LABS: Albumin 2.4 g/dL (3.4-5.0); Calcium 8.3 mg/dL (8.5-10.1); Potassium 3.6 mmol/L (3.5-5.1)
[2020-05-08 07:49] LABS: Bilirubin, Total 0.4 mg/dL (0.2-1.0); Total Protein 6.7 g/dL (6.4-8.2)
[2020-05-08] MEDS: FAMOTIDINE (10MG/ML) 2ML VL IV SCH ×2 (10:00→21:11)
[2020-05-08] MEDS ORDERED: VANCOMYCIN 1GM/250ML 250 ML IV SCH (10:00)
[2020-05-08] MEDS ORDERED: HEPARIN SODIUM (PORCINE) 5000 UNITS/ML 1ML VIAL SC SCH (10:00)
[2020-05-08] MEDS ORDERED: VANCOMYCIN PER PHARMACY 0 MG IV SCH (10:45)
[2020-05-08] MEDS: FUROSEMIDE 20 MG/2 ML VIAL IV SCH (11:00)
[2020-05-08] MEDS: ASPirin 81 mg TAB PO SCH (11:00)
[2020-05-08] MEDS: ASCORBIC ACID 500 MG TAB PO SCH ×2 (11:01→21:12)
[2020-05-08] MEDS: SODIUM CHLORIDE 0.9% 1,000 ML IV SCH ×2 (11:01→21:12)
[2020-05-08] MEDS: ZINC SULFATE 220mg CAP or TAB PO SCH (11:01)
[2020-05-08] MEDS: MULTIPLE VITAMIN TAB PO SCH (11:01)
[2020-05-08] MEDS ORDERED: LEVO50TA7 PO (12:12)
[2020-05-08] MEDS ORDERED: LISI-646 PO (12:13)
[2020-05-08] MEDS ORDERED: METF-929 PO (12:16)
[2020-05-08] MEDS ORDERED: OMEG120015 PO (12:19)
[2020-05-08] MEDS ORDERED: HYDR-4902 PO (12:21)
[2020-05-08] MEDS: DOPamine 1600MCG/ML D5W 250 ML IV SCH (13:58)
[2020-05-08] MEDS: GABAPENTIN 100 MG CAP PO SCH ×2 (14:10→21:11)
[2020-05-08] MEDS: VANCOMYCIN 750mg/250ml 250 ML IV SCH ×2 (14:12→23:09)
[2020-05-08] MEDS ORDERED: hydrALAZINE HCL 20 MG/ML VL IV PRN (15:45)
[2020-05-08] MEDS ORDERED: VANCOMYCIN 1GM/250ML 0 ML IV ONE (23:05)
[2020-05-09] VITALS (9 sets, daily range): BP systolic 114–150; BP diastolic 42–83
[2020-05-09] MEDS: SODIUM CHLOR 0.9% PF (SALINE LOCK) 10ML VIAL/SYR IV SCH ×3 (01:45→21:31)
[2020-05-09 04:24] LABS: Basophils # (auto) 0.1 10 ^3/uL (0-0.2); Basophils % (auto) 0.8 % (0.0-2.0); Eosinophils # (auto) 0.6 10 ^3/uL (0-0.8); Eosinophils % (auto) 6.8 % (0.0-7.0); Hematocrit 32.3 % (41.0-53.0); Hemoglobin 10.9 g/dL (13.5-17.5); Lymphocytes # (auto) 1.7 10 ^3/uL (0.4-5.4); Lymphocytes % (auto) 18.5 % (10.0-50.0); Mean Corpuscular Hemoglobin 31.3 pg (28.0-32.0); Mean Corpuscular Hgb Conc. 33.9 g/dL (32.0-36.0); Mean Corpuscular Volume 92.3 fL (80.0-100.0); Monocytes # (auto) 0.8 10 ^3/uL (0-1.3); Neutrophils # (auto) 5.9 10 ^3/uL (1.6-8.6); Neutrophils % (auto) 64.9 % (37.0-80.0); Platelet Count (auto) 269 10^3/uL (140-450); Red Cell Distribution Width 13.8 % (11.8-14.3); White Blood Cell 9.1 10^3/uL (4.4-10.8)
[2020-05-09 04:39] LABS: Albumin 2.3 g/dL (3.4-5.0); Calcium 8.3 mg/dL (8.5-10.1); Potassium 3.3 mmol/L (3.5-5.1)
[2020-05-09 04:44] LABS: BUN/Creatinine Ratio 31.8; Bilirubin, Total 0.3 mg/dL (0.2-1.0); Total Protein 6.5 g/dL (6.4-8.2)
[2020-05-09] MEDS: GABAPENTIN 100 MG CAP PO SCH ×3 (05:19→21:31)
[2020-05-09] MEDS: InsuLIN REG 1unit/0.01ml Soln (100units/ml) SC SCH ×4 (05:19→21:35)
[2020-05-09] MEDS: ACCU-CHEK COMFORT CURVE STRIP VI SCH ×4 (05:19→21:31)
[2020-05-09] MEDS ORDERED: POTASSIUM CHLORIDE 40 MEQ, LIDOCAINE 1% (LOCAL ANESTH.) 4 ML in SODIUM CHL 0.9% 250 ML IV ONE (08:30)
[2020-05-09] MEDS: FAMOTIDINE (10MG/ML) 2ML VL IV SCH ×2 (10:10→21:30)
[2020-05-09] MEDS: FUROSEMIDE 20 MG/2 ML VIAL IV SCH (10:10)
[2020-05-09] MEDS: MULTIPLE VITAMIN TAB PO SCH (10:11)
[2020-05-09] MEDS: CLOPIDOGREL BISULFATE 75 MG TAB PO SCH (10:11)
[2020-05-09] MEDS: amLODIPine BESYLATE 5 MG TAB PO SCH (10:11)
[2020-05-09] MEDS: ASPirin 81 mg TAB PO SCH (10:11)
[2020-05-09] MEDS: ZINC SULFATE 220mg CAP or TAB PO SCH (10:11)
[2020-05-09] MEDS: SODIUM CHLORIDE 0.9% 1,000 ML IV SCH (10:12)
[2020-05-09] MEDS: ASCORBIC ACID 500 MG TAB PO SCH ×2 (10:12→21:31)
[2020-05-09] MEDS: VANCOMYCIN 750mg/250ml 250 ML IV SCH (13:29)
[2020-05-10] MEDS: VANCOMYCIN 750mg/250ml 250 ML IV SCH
[2020-05-10] MEDS: SODIUM CHLORIDE 0.9% 1,000 ML IV SCH ×2 (02:44→17:22)
[2020-05-10 05:00] VITALS: BP 153/68
[2020-05-10] MEDS: ACCU-CHEK COMFORT CURVE STRIP VI SCH ×4 (06:03→21:15)
[2020-05-10] MEDS: GABAPENTIN 100 MG CAP PO SCH ×3 (06:03→21:15)
[2020-05-10] MEDS: InsuLIN REG 1unit/0.01ml Soln (100units/ml) SC SCH ×4 (06:03→21:22)
[2020-05-10] MEDS: SODIUM CHLOR 0.9% PF (SALINE LOCK) 10ML VIAL/SYR IV SCH ×3 (06:03→21:14)
[2020-05-10 07:44] LABS: BUN/Creatinine Ratio 26.9; Potassium 3.5 mmol/L (3.5-5.1)
[2020-05-10 08:14] LABS: Basophils # (auto) 0.1 10 ^3/uL (0-0.2); Basophils % (auto) 1.1 % (0.0-2.0); Eosinophils # (auto) 0.6 10 ^3/uL (0-0.8); Eosinophils % (auto) 7.6 % (0.0-7.0); Hematocrit 35.4 % (41.0-53.0); Hemoglobin 11.1 g/dL (13.5-17.5); Lymphocytes # (auto) 1.8 10 ^3/uL (0.4-5.4); Lymphocytes % (auto) 22.4 % (10.0-50.0); Mean Corpuscular Hgb Conc. 31.4 g/dL (32.0-36.0); Mean Corpuscular Volume 98.8 fL (80.0-100.0); Monocytes % (auto) 12.6 % (0.0-12.0); Neutrophils # (auto) 4.5 10 ^3/uL (1.6-8.6); Neutrophils % (auto) 56.3 % (37.0-80.0); Nucleated Red Blood Cells % 0.1 %; Platelet Count (auto) 289 10^3/uL (140-450); Red Blood Cells 3.58 10^6/uL (4.5-5.90); Red Cell Distribution Width 14.2 % (11.8-14.3); White Blood Cell 7.9 10^3/uL (4.4-10.8)
[2020-05-10 09:00] VITALS: BP 154/74
[2020-05-10] MEDS: ZINC SULFATE 220mg CAP or TAB PO SCH (10:17)
[2020-05-10] MEDS: MULTIPLE VITAMIN TAB PO SCH (10:17)
[2020-05-10] MEDS: FAMOTIDINE (10MG/ML) 2ML VL IV SCH ×2 (10:17→21:22)
[2020-05-10] MEDS: ASPirin 81 mg TAB PO SCH (10:17)
[2020-05-10] MEDS: ASCORBIC ACID 500 MG TAB PO SCH ×2 (10:17→21:15)
[2020-05-10] MEDS: CLOPIDOGREL BISULFATE 75 MG TAB PO SCH (10:17)
[2020-05-10] MEDS: FUROSEMIDE 20 MG/2 ML VIAL IV SCH (10:18)
[2020-05-10] MEDS: amLODIPine BESYLATE 5 MG TAB PO SCH (10:33)
[2020-05-10] MEDS: VANCOMYCIN 1GM/250ML 250 ML IV SCH (11:51)
[2020-05-10 13:00] VITALS: BP 134/65
[2020-05-10] MEDS ORDERED: levoFLOXacin 250MG 50 ML IV ONE (15:30)
[2020-05-10 17:59] VITALS: BP 125/59
[2020-05-10] MEDS: ATORVASTATIN 20 MG TAB PO SCH (21:15)
[2020-05-10 22:00] VITALS: BP 149/56
[2020-05-11 05:00] VITALS: BP 109/64
[2020-05-11] MEDS: SODIUM CHLORIDE 0.9% 1,000 ML IV SCH (05:18)
[2020-05-11] MEDS: SODIUM CHLOR 0.9% PF (SALINE LOCK) 10ML VIAL/SYR IV SCH ×3 (05:19→21:20)
[2020-05-11] MEDS: GABAPENTIN 100 MG CAP PO SCH ×3 (05:19→21:20)
[2020-05-11] MEDS: ACCU-CHEK COMFORT CURVE STRIP VI SCH ×4 (06:01→21:19)
[2020-05-11] MEDS: LEVOTHYROXINE SODIUM 50 MCG TAB PO SCH (06:01)
[2020-05-11] MEDS: InsuLIN REG 1unit/0.01ml Soln (100units/ml) SC SCH ×4 (06:20→21:19)
[2020-05-11 08:30] VITALS: BP 141/65
[2020-05-11] MEDS: ASCORBIC ACID 500 MG TAB PO SCH ×2 (10:27→21:20)
[2020-05-11] MEDS: ASPirin 81 mg TAB PO SCH (10:27)
[2020-05-11] MEDS: MULTIPLE VITAMIN TAB PO SCH (10:27)
[2020-05-11] MEDS: CLOPIDOGREL BISULFATE 75 MG TAB PO SCH (10:27)
[2020-05-11] MEDS: ZINC SULFATE 220mg CAP or TAB PO SCH (10:27)
[2020-05-11] MEDS: amLODIPine BESYLATE 5 MG TAB PO SCH (10:28)
[2020-05-11] MEDS: levoFLOXacin 500MG 100 ML IV SCH (11:12)
[2020-05-11] MEDS: FUROSEMIDE 20 MG/2 ML VIAL IV SCH (11:12)
[2020-05-11] MEDS: FAMOTIDINE (10MG/ML) 2ML VL IV SCH ×2 (11:17→21:21)
[2020-05-11 12:30] VITALS: BP 144/64
[2020-05-11] MEDS: VANCOMYCIN 1GM/250ML 250 ML IV SCH (12:56)
[2020-05-11 17:00] VITALS: BP 132/71
[2020-05-11] MEDS: ATORVASTATIN 20 MG TAB PO SCH (21:20)
[2020-05-11 22:00] VITALS: BP 132/76
[2020-05-12 05:00] VITALS: BP 146/67
[2020-05-12] MEDS: SODIUM CHLOR 0.9% PF (SALINE LOCK) 10ML VIAL/SYR IV SCH ×3 (05:15→21:06)
[2020-05-12] MEDS: GABAPENTIN 100 MG CAP PO SCH ×3 (05:15→21:07)
[2020-05-12] MEDS: LEVOTHYROXINE SODIUM 50 MCG TAB PO SCH (05:15)
[2020-05-12] MEDS: InsuLIN REG 1unit/0.01ml Soln (100units/ml) SC SCH ×4 (05:16→21:07)
[2020-05-12] MEDS: ACCU-CHEK COMFORT CURVE STRIP VI SCH ×4 (05:16→21:07)
[2020-05-12 05:45] LABS: Basophils # (auto) 0.1 10 ^3/uL (0-0.2); Eosinophils # (auto) 0.7 10 ^3/uL (0-0.8); Eosinophils % (auto) 9.3 % (0.0-7.0); Hematocrit 30.9 % (41.0-53.0); Hemoglobin 10.7 g/dL (13.5-17.5); Lymphocytes # (auto) 1.7 10 ^3/uL (0.4-5.4); Lymphocytes % (auto) 20.5 % (10.0-50.0); Mean Corpuscular Hemoglobin 31.3 pg (28.0-32.0); Mean Corpuscular Hgb Conc. 34.6 g/dL (32.0-36.0); Mean Corpuscular Volume 90.5 fL (80.0-100.0); Monocytes # (auto) 0.9 10 ^3/uL (0-1.3); Monocytes % (auto) 11.1 % (0.0-12.0); Neutrophils # (auto) 4.7 10 ^3/uL (1.6-8.6); Neutrophils % (auto) 58.1 % (37.0-80.0); Platelet Count (auto) 291 10^3/uL (140-450); Red Blood Cells 3.41 10^6/uL (4.5-5.90); Red Cell Distribution Width 13.7 % (11.8-14.3)
[2020-05-12 06:03] LABS: Albumin 2.4 g/dL (3.4-5.0); Calcium 8.2 mg/dL (8.5-10.1); Potassium 3.2 mmol/L (3.5-5.1)
[2020-05-12 06:08] LABS: BUN/Creatinine Ratio 18.8; Bilirubin, Total 0.2 mg/dL (0.2-1.0); Total Protein 6.4 g/dL (6.4-8.2)
[2020-05-12 08:00] VITALS: BP 116/69
[2020-05-12] MEDS: ZINC SULFATE 220mg CAP or TAB PO SCH (09:16)
[2020-05-12] MEDS: levoFLOXacin 500MG 100 ML IV SCH (09:16)
[2020-05-12] MEDS: ASCORBIC ACID 500 MG TAB PO SCH ×2 (09:16→21:07)
[2020-05-12] MEDS: ASPirin 81 mg TAB PO SCH (09:16)
[2020-05-12] MEDS: CLOPIDOGREL BISULFATE 75 MG TAB PO SCH (09:16)
[2020-05-12] MEDS: MULTIPLE VITAMIN TAB PO SCH (09:16)
[2020-05-12] MEDS: amLODIPine BESYLATE 5 MG TAB PO SCH (09:17)
[2020-05-12] MEDS: FUROSEMIDE 20 MG/2 ML VIAL IV SCH (09:17)
[2020-05-12] MEDS: FAMOTIDINE (10MG/ML) 2ML VL IV SCH ×2 (09:22→21:06)
[2020-05-12] MEDS: VANCOMYCIN 1GM/250ML 250 ML IV SCH (11:52)
[2020-05-12 12:00] VITALS: BP 146/84
[2020-05-12] MEDS ORDERED: POTASSIUM CHLORIDE 40 MEQ, LIDOCAINE 1% (LOCAL ANESTH.) 4 ML in SODIUM CHL 0.9% 250 ML IV ONE (12:45)
[2020-05-12] MEDS ORDERED: POTASSIUM CHL 20 Meq TABLET PO ONE (12:45)
[2020-05-12 16:00] VITALS: BP 145/80
[2020-05-12] MEDS: ATORVASTATIN 20 MG TAB PO SCH (21:07)
[2020-05-12 22:00] VITALS: BP 137/87
[2020-05-13 05:00] VITALS: BP 139/76
[2020-05-13] MEDS: GABAPENTIN 100 MG CAP PO SCH ×2 (05:30→17:11)
[2020-05-13] MEDS: LEVOTHYROXINE SODIUM 50 MCG TAB PO SCH (05:30)
[2020-05-13] MEDS: SODIUM CHLOR 0.9% PF (SALINE LOCK) 10ML VIAL/SYR IV SCH ×2 (05:30→17:11)
[2020-05-13] MEDS: ACCU-CHEK COMFORT CURVE STRIP VI SCH ×3 (05:30→17:46)
[2020-05-13] MEDS: InsuLIN REG 1unit/0.01ml Soln (100units/ml) SC SCH ×3 (05:34→17:00)
[2020-05-13 06:19] LABS: Basophils # (auto) 0.1 10 ^3/uL (0-0.2); Basophils % (auto) 0.8 % (0.0-2.0); Eosinophils # (auto) 0.7 10 ^3/uL (0-0.8); Eosinophils % (auto) 8.4 % (0.0-7.0); Hemoglobin 10.4 g/dL (13.5-17.5); Lymphocytes # (auto) 1.8 10 ^3/uL (0.4-5.4); Lymphocytes % (auto) 21.4 % (10.0-50.0); Mean Corpuscular Hemoglobin 31.1 pg (28.0-32.0); Mean Corpuscular Hgb Conc. 34.5 g/dL (32.0-36.0); Mean Corpuscular Volume 90.1 fL (80.0-100.0); Monocytes % (auto) 11.1 % (0.0-12.0); Neutrophils % (auto) 58.3 % (37.0-80.0); Nucleated Red Blood Cells % 0.1 %; Platelet Count (auto) 297 10^3/uL (140-450); Red Blood Cells 3.33 10^6/uL (4.5-5.90); Red Cell Distribution Width 13.6 % (11.8-14.3); White Blood Cell 8.6 10^3/uL (4.4-10.8)
[2020-05-13 06:25] LABS: BUN/Creatinine Ratio 20.8; Calcium 8.1 mg/dL (8.5-10.1); Potassium 3.6 mmol/L (3.5-5.1)
[2020-05-13 09:00] VITALS: BP 146/67
[2020-05-13] MEDS: FUROSEMIDE 20 MG/2 ML VIAL IV SCH (10:34)
[2020-05-13] MEDS: ASCORBIC ACID 500 MG TAB PO SCH (10:35)
[2020-05-13] MEDS: levoFLOXacin 500MG 100 ML IV SCH (10:35)
[2020-05-13] MEDS: MULTIPLE VITAMIN TAB PO SCH (10:35)
[2020-05-13] MEDS: ZINC SULFATE 220mg CAP or TAB PO SCH (10:36)
[2020-05-13] MEDS: amLODIPine BESYLATE 5 MG TAB PO SCH (10:36)
[2020-05-13] MEDS: CLOPIDOGREL BISULFATE 75 MG TAB PO SCH (10:37)
[2020-05-13] MEDS: ASPirin 81 mg TAB PO SCH (10:37)
[2020-05-13] MEDS: FAMOTIDINE (10MG/ML) 2ML VL IV SCH (10:45)
[2020-05-13 13:00] VITALS: BP 108/62
[2020-05-13 16:12] VITALS: BP 146/67
[2020-05-13 16:30] VITALS: BP 137/72
[2020-05-14] MEDS ORDERED: VANCOMYCIN 1GM/250ML 250 ML IV SCH
== END 2020-05-13 21:05 | disposition home health service (06) | DRG 309 ==
LOC: ER 18:13 → EDBD 18:13 → TELE 18:14 → ICU WEST 05-08 06:08 → TELE-WESTW 05-09 07:50
PROVIDERS: ADMIT Nurse Practitioner Family; ATTEND Internal Medicine
DX: R00.1 Bradycardia, unspecified (principal); E44.0 Moderate protein-calorie malnutrition; L03.116 Cellulitis of left lower limb; L03.115 Cellulitis of right lower limb; I50.1 Left ventricular failure, unspecified; D72.829 Elevated white blood cell count, unspecified; E11.65 Type 2 diabetes mellitus with hyperglycemia; I25.10 Atherosclerotic heart disease of native coronary artery without angina pectoris; E78.5 Hyperlipidemia, unspecified; Z20.822 Contact with and (suspected) exposure to COVID-19; D64.9 Anemia, unspecified; E11.42 Type 2 diabetes mellitus with diabetic polyneuropathy; E11.51 Type 2 diabetes mellitus with diabetic peripheral angiopathy without gangrene; E11.621 Type 2 diabetes mellitus with foot ulcer; E87.6 Hypokalemia; I11.0 Hypertensive heart disease with heart failure; T44.7X5A Adverse effect of beta-adrenoreceptor antagonists, initial encounter; Y92.89 Other specified places as the place of occurrence of the external cause; Z79.899 Other long term (current) drug therapy; Z82.0 Family history of epilepsy and other diseases of the nervous system; Z82.49 Family history of ischemic heart disease and other diseases of the circulatory system; Z83.3 Family history of diabetes mellitus; Z79.4 Long term (current) use of insulin; Z74.01 Bed confinement status; Z86.73 Personal history of transient ischemic attack (TIA), and cerebral infarction without residual deficits; Z98.61 Coronary angioplasty status; L89.619 Pressure ulcer of right heel, unspecified stage; L89.629 Pressure ulcer of left heel, unspecified stage; Z68.27 Body mass index [BMI] 27.0-27.9, adult
CPT/HCPCS: 36415; 36600; 71045; 74176; 80048; 80053; 80061; 80202; 81001; 82565; 82805; 82962; 83605; 83735; 83880; 84484; 85025; 87077; 87081; 87186; 87205; 87426; 93005; 93306; 96361; 96365; 96375; 99291; G0378; J0461; J1815; J1956; J2001; J3490

== ENCOUNTER 2021-01-07 13:58 | Inpatient (IN) | payer OTHER ==
[~2021-01-07] VITALS: Ht 195.6 cm; Wt 83.2 kg
[~2021-01-07 13:58] MED LIST changes: -AMLO-489 PO; -APIX5TAB PO; +ASPI1TAB20 PO; -ATEN-60 PO; +ATOR20TA50 PO; -ATOR40TA52 PO; -BENA20TA14 PO; -CARV6.2551 PO; -CLOB0.055 TOP; -DOXY-286 PO; -INSUINJ32 SC; +LEVO50TA7 PO; -LINE1TAB6 PO; +LISI20TA28 PO; +METF-929 PO; +OMEG120015 PO
[2021-01-07 15:49] LABS: Basophils # (auto) 0.1 10 ^3/uL (0-0.2); Basophils % (auto) 0.9 % (0.0-2.0); Eosinophils # (auto) 0.9 10 ^3/uL (0-0.8); Eosinophils % (auto) 5.4 % (0.0-7.0); Hematocrit 37.7 % (41.0-53.0); Hemoglobin 12.9 g/dL (13.5-17.5); Lymphocytes # (auto) 3.3 10 ^3/uL (0.4-5.4); Lymphocytes % (auto) 21.1 % (10.0-50.0); Mean Corpuscular Hemoglobin 31.9 pg (28.0-32.0); Mean Corpuscular Hgb Conc. 34.1 g/dL (32.0-36.0); Mean Corpuscular Volume 93.7 fL (80.0-100.0); Monocytes # (auto) 1.4 10 ^3/uL (0-1.3); Monocytes % (auto) 8.8 % (0.0-12.0); Neutrophils # (auto) 10.1 10 ^3/uL (1.6-8.6); Neutrophils % (auto) 63.8 % (37.0-80.0); Nucleated Red Blood Cells % 0.1 %; Red Blood Cells 4.03 10^6/uL (4.5-5.90); Red Cell Distribution Width 13.3 % (11.8-14.3); White Blood Cell 15.8 10^3/uL (4.4-10.8)
[2021-01-07 16:08] LABS: Albumin 2.8 g/dL (3.4-5.0); Calcium 8.6 mg/dL (8.5-10.1); Potassium 4.8 mmol/L (3.5-5.1)
[2021-01-07 16:12] LABS: BUN/Creatinine Ratio 27.7; Bilirubin, Total 0.3 mg/dL (0.2-1.0); Total Protein 7.5 g/dL (6.4-8.2)
[2021-01-07 20:48] LABS: CRP High Sensitivity 0.33 mg/dL (< 0.3); Magnesium 2.2 mg/dL (1.6-2.6)
[2021-01-07 21:45] LABS: INR 1.04 (0.9-1.15)
[2021-01-08] MEDS ORDERED: levoFLOXacin 250 MG TAB PO ONE (02:00)
[2021-01-08] MEDS ORDERED: metroNIDAZOLE 500MG/100ML 100 ML IV ONE (02:00)
[2021-01-08] MEDS ORDERED: ACETAMINOPHEN 325 MG TAB PO PRN (07:15)
[2021-01-08] MEDS ORDERED: MORPHINE SULFATE INJECTION 2 MG/ML SYRG IV PRN (07:15)
[2021-01-08] MEDS ORDERED: TEMAZEPAM 15 MG CAP PO PRN (07:15)
[2021-01-08] MEDS ORDERED: NITROGLYCERIN 0.4 MG SL TAB SL PRN (07:15)
[2021-01-08] MEDS ORDERED: ONDANSETRON HCL 4 MG/2 ML VIAL IV PRN (07:15)
[2021-01-08] MEDS ORDERED: DEXTROSE (50%) 50ML SYRG IV PRN (07:15)
[2021-01-08] MEDS ORDERED: HYDROcodone-ACET 5/325MG TAB PO PRN (07:15)
[2021-01-08] MEDS: InsuLIN REG 1unit/0.01ml Soln (100units/ml) SC SCH ×4 (08:00→23:05)
[2021-01-08] MEDS: ACCU-CHEK COMFORT CURVE STRIP VI SCH ×4 (08:15→20:00)
[2021-01-08] MEDS: LEVOTHYROXINE SODIUM 50 MCG TAB PO SCH (08:15)
[2021-01-08] MEDS ORDERED: ENOXAPARIN SOD 40 MG/0.4 ML SYRINGE SC SCH (10:00)
[2021-01-08] MEDS: LISINOPRIL 20 MG TAB PO SCH (10:03)
[2021-01-08] MEDS: ATORVASTATIN 20 MG TAB PO SCH (10:03)
[2021-01-08] MEDS: GABAPENTIN 300 MG CAP PO SCH ×2 (13:57→23:05)
[2021-01-08] MEDS: CLINDAMYCIN 900MG IV 50 ML IV SCH ×2 (13:57→23:05)
[2021-01-08] MEDS: METOPROLOL TARTRATE 25 MG TAB PO SCH (23:06)
[2021-01-08] MEDS ORDERED: TERB250T66 PO (23:29)
[2021-01-08] MEDS ORDERED: CARV6.2551 PO (23:29)
[2021-01-08] MEDS ORDERED: LEVO75TA6 PO (23:29)
[2021-01-09] MEDS: InsuLIN REG 1unit/0.01ml Soln (100units/ml) SC SCH ×6 (01:03→20:00)
[2021-01-09 05:27] VITALS: BP 122/71
[2021-01-09] MEDS: GABAPENTIN 300 MG CAP PO SCH ×3 (05:42→23:09)
[2021-01-09] MEDS: ACCU-CHEK COMFORT CURVE STRIP VI SCH ×7 (05:42→23:46)
[2021-01-09] MEDS: CLINDAMYCIN 900MG IV 50 ML IV SCH ×3 (05:42→23:09)
[2021-01-09] MEDS: MORPHINE SULFATE 4 MG/ML SYR/VIAL IV PRN (05:43)
[2021-01-09] MEDS: LEVOTHYROXINE SODIUM 50 MCG TAB PO SCH (07:00)
[2021-01-09 08:00] VITALS: BP 127/68
[2021-01-09 08:12] LABS: Basophils # (auto) 0.1 10 ^3/uL (0-0.2); Basophils % (auto) 0.8 % (0.0-2.0); Eosinophils # (auto) 0.5 10 ^3/uL (0-0.8); Eosinophils % (auto) 4.9 % (0.0-7.0); Hematocrit 35.4 % (41.0-53.0); Lymphocytes # (auto) 1.8 10 ^3/uL (0.4-5.4); Lymphocytes % (auto) 16.8 % (10.0-50.0); Mean Corpuscular Hemoglobin 32.3 pg (28.0-32.0); Mean Corpuscular Hgb Conc. 33.9 g/dL (32.0-36.0); Mean Corpuscular Volume 95.4 fL (80.0-100.0); Monocytes # (auto) 0.9 10 ^3/uL (0-1.3); Monocytes % (auto) 8.5 % (0.0-12.0); Neutrophils # (auto) 7.6 10 ^3/uL (1.6-8.6); Nucleated Red Blood Cells % 0.1 %; Red Blood Cells 3.71 10^6/uL (4.5-5.90); Red Cell Distribution Width 13.1 % (11.8-14.3)
[2021-01-09 08:17] LABS: INR 1.16 (0.9-1.15); Partial Thromboplastin Time 29.9 sec (23.6-33.0)
[2021-01-09 08:18] LABS: BUN/Creatinine Ratio 32.5; Calcium 8.5 mg/dL (8.5-10.1); Potassium 4.6 mmol/L (3.5-5.1)
[2021-01-09 08:55] VITALS: BP 127/68
[2021-01-09] MEDS ORDERED: INFLUENZA QUAD 2021-2022 0.5 ML SYRG IM ONE (10:00)
[2021-01-09] MEDS: METOPROLOL TARTRATE 25 MG TAB PO SCH ×2 (10:05→23:10)
[2021-01-09] MEDS: ATORVASTATIN 20 MG TAB PO SCH (10:05)
[2021-01-09] MEDS: ENOXAPARIN SOD 40 MG/0.4 ML SYRINGE SC SCH (10:06)
[2021-01-09] MEDS: LISINOPRIL 20 MG TAB PO SCH (10:06)
[2021-01-09] MEDS ORDERED: ROPIVACAINE 0.5% (5MG/ML) 20ML AMPULE IJ ONE (10:58)
[2021-01-09] MEDS ORDERED: ceFAZolin 1GM/50ML 100 ML IV ONE (11:19)
[2021-01-09] MEDS ORDERED: fentaNYL CITRATE 100 MCG/2 ML VL ONE (11:40)
[2021-01-09] MEDS ORDERED: SODIUM CHLORIDE LOCK 10 ML ONE (11:41)
[2021-01-09] MEDS ORDERED: ONDANSETRON HCL 4 MG/2 ML VIAL ONE (11:41)
[2021-01-09] MEDS ORDERED: MIDAZOLAM HCL 2MG/2ML 2ml VIAL (1mg/ml) ONE ×2 (11:41→12:15)
[2021-01-09] MEDS ORDERED: PROPOFOL 10 MG/ML 20 ML IV ONE (11:41)
[2021-01-09] MEDS ORDERED: ceFAZolin 1GM VL ONE ×2 (11:43→11:44)
[2021-01-09] MEDS ORDERED: diphenhdrAMINE HCL 50 MG/1 ML VL ONE (12:32)
[2021-01-09] MEDS ORDERED: DexAMETHasone SOD PHOS 10MG/1ML VIAL INJ ONE (12:33)
[2021-01-09] MEDS ORDERED: LIDOCAINE 2% (LOCAL ANESTH.) PF 5ml SDV ONE (12:36)
[2021-01-09 13:00] VITALS: BP 95/52
[2021-01-09] MEDS ORDERED: HYDROmorphone HCL 2 MG/ML VL IV PRN (13:00)
[2021-01-09] MEDS ORDERED: ACCU-CHEK COMFORT CURVE STRIP VI ONE (13:00)
[2021-01-09] MEDS ORDERED: METOCLOPRAMIDE HCL 5MG/ml INJ 2ml VIAL IV PRN (13:00)
[2021-01-09 16:35] VITALS: BP 112/59
[2021-01-09 21:43] VITALS: BP 133/70
[2021-01-10] MEDS: ACCU-CHEK COMFORT CURVE STRIP VI SCH ×5 (04:00→20:24)
[2021-01-10] MEDS: InsuLIN REG 1unit/0.01ml Soln (100units/ml) SC SCH ×6 (04:22→20:24)
[2021-01-10 05:30] VITALS: BP 136/75
[2021-01-10] MEDS: CLINDAMYCIN 900MG IV 50 ML IV SCH ×3 (06:18→22:16)
[2021-01-10] MEDS: LEVOTHYROXINE SODIUM 50 MCG TAB PO SCH (06:18)
[2021-01-10] MEDS: GABAPENTIN 300 MG CAP PO SCH ×3 (06:18→22:17)
[2021-01-10 09:00] VITALS: BP 102/64
[2021-01-10] MEDS: ENOXAPARIN SOD 40 MG/0.4 ML SYRINGE SC SCH (09:33)
[2021-01-10] MEDS: ATORVASTATIN 20 MG TAB PO SCH (09:34)
[2021-01-10] MEDS: METOPROLOL TARTRATE 25 MG TAB PO SCH ×2 (09:34→23:24)
[2021-01-10] MEDS: LISINOPRIL 20 MG TAB PO SCH (09:34)
[2021-01-10] MEDS: MORPHINE SULFATE 4 MG/ML SYR/VIAL IV PRN (09:35)
[2021-01-10 13:00] VITALS: BP 121/54
[2021-01-10 17:00] VITALS: BP 140/64
[2021-01-10 17:17] LABS: Basophils # (auto) 0.1 10 ^3/uL (0-0.2); Basophils % (auto) 0.6 % (0.0-2.0); Eosinophils # (auto) 0.1 10 ^3/uL (0-0.8); Eosinophils % (auto) 0.6 % (0.0-7.0); Hemoglobin 10.5 g/dL (13.5-17.5); Lymphocytes % (auto) 16.9 % (10.0-50.0); Mean Corpuscular Hemoglobin 31.9 pg (28.0-32.0); Mean Corpuscular Hgb Conc. 33.8 g/dL (32.0-36.0); Mean Corpuscular Volume 94.2 fL (80.0-100.0); Monocytes # (auto) 1.2 10 ^3/uL (0-1.3); Monocytes % (auto) 9.9 % (0.0-12.0); Neutrophils # (auto) 8.6 10 ^3/uL (1.6-8.6); Red Blood Cells 3.29 10^6/uL (4.5-5.90); Red Cell Distribution Width 12.9 % (11.8-14.3)
[2021-01-10 17:32] LABS: Albumin 2.4 g/dL (3.4-5.0); Calcium 8.2 mg/dL (8.5-10.1); Potassium 4.8 mmol/L (3.5-5.1)
[2021-01-10 17:35] LABS: BUN/Creatinine Ratio 33.8; Bilirubin, Total 0.2 mg/dL (0.2-1.0)
[2021-01-10 22:00] VITALS: BP 123/62
[2021-01-11] MEDS: METOPROLOL TARTRATE 25 MG TAB PO SCH ×2 (00:24→23:46)
[2021-01-11] MEDS: ACCU-CHEK COMFORT CURVE STRIP VI SCH ×6 (00:27→20:14)
[2021-01-11] MEDS: InsuLIN REG 1unit/0.01ml Soln (100units/ml) SC SCH ×6 (03:48→20:14)
[2021-01-11 05:00] VITALS: BP 134/78
[2021-01-11] MEDS: CLINDAMYCIN 900MG IV 50 ML IV SCH ×3 (06:26→23:46)
[2021-01-11] MEDS: GABAPENTIN 300 MG CAP PO SCH ×3 (06:26→23:47)
[2021-01-11] MEDS: LEVOTHYROXINE SODIUM 50 MCG TAB PO SCH (06:26)
[2021-01-11 07:32] LABS: Basophils # (auto) 0.1 10 ^3/uL (0-0.2); Basophils % (auto) 0.8 % (0.0-2.0); Eosinophils # (auto) 0.3 10 ^3/uL (0-0.8); Eosinophils % (auto) 3.3 % (0.0-7.0); Hematocrit 31.9 % (41.0-53.0); Lymphocytes # (auto) 3.2 10 ^3/uL (0.4-5.4); Lymphocytes % (auto) 32.1 % (10.0-50.0); Mean Corpuscular Hgb Conc. 34.6 g/dL (32.0-36.0); Mean Corpuscular Volume 95.5 fL (80.0-100.0); Monocytes # (auto) 0.9 10 ^3/uL (0-1.3); Neutrophils # (auto) 5.4 10 ^3/uL (1.6-8.6); Neutrophils % (auto) 54.8 % (37.0-80.0); Nucleated Red Blood Cells % 0.1 %; Red Blood Cells 3.34 10^6/uL (4.5-5.90); Red Cell Distribution Width 13.2 % (11.8-14.3); White Blood Cell 9.9 10^3/uL (4.4-10.8)
[2021-01-11 07:38] LABS: Potassium 4.9 mmol/L (3.5-5.1)
[2021-01-11 07:49] LABS: Albumin 2.5 g/dL (3.4-5.0); BUN/Creatinine Ratio 36.6; Bilirubin, Total 0.2 mg/dL (0.2-1.0); Calcium 8.2 mg/dL (8.5-10.1); Magnesium 2.9 mg/dL (1.6-2.6); Phosphorus 3.4 mg/dL (2.5-4.90); Total Protein 6.1 g/dL (6.4-8.2)
[2021-01-11 09:00] VITALS: BP 149/62
[2021-01-11] MEDS: ENOXAPARIN SOD 40 MG/0.4 ML SYRINGE SC SCH (09:58)
[2021-01-11] MEDS: ATORVASTATIN 20 MG TAB PO SCH (09:58)
[2021-01-11] MEDS: LISINOPRIL 20 MG TAB PO SCH (10:03)
[2021-01-11 13:00] VITALS: BP 149/62
[2021-01-11 17:00] VITALS: BP 162/71
[2021-01-11 22:00] VITALS: BP 152/70
[2021-01-12] MEDS: ACCU-CHEK COMFORT CURVE STRIP VI SCH ×6 (02:48→22:53)
[2021-01-12] MEDS: InsuLIN REG 1unit/0.01ml Soln (100units/ml) SC SCH ×6 (04:00→23:01)
[2021-01-12 05:00] VITALS: BP 149/79
[2021-01-12] MEDS: LEVOTHYROXINE SODIUM 50 MCG TAB PO SCH (07:16)
[2021-01-12] MEDS: CLINDAMYCIN 900MG IV 50 ML IV SCH (07:16)
[2021-01-12] MEDS: GABAPENTIN 300 MG CAP PO SCH ×3 (07:16→22:51)
[2021-01-12 09:00] VITALS: BP 156/73
[2021-01-12] MEDS: ASPirin 81 mg TAB PO SCH (09:38)
[2021-01-12] MEDS: CLOPIDOGREL BISULFATE 75 MG TAB PO SCH (09:39)
[2021-01-12] MEDS: ATORVASTATIN 20 MG TAB PO SCH (09:39)
[2021-01-12] MEDS: METOPROLOL TARTRATE 25 MG TAB PO SCH ×2 (09:40→22:52)
[2021-01-12] MEDS: LISINOPRIL 20 MG TAB PO SCH (09:45)
[2021-01-12] MEDS ORDERED: AMPICILLIN & SULBACTAM SODIUM 3 GM in SODIUM CHL 0.9% 100 ML IV SCH (10:30)
[2021-01-12] MEDS: AMPICILLIN & SULBACTAM SODIUM 3 GM in SODIUM CHL 0.9% 100 ML IV SCH ×2 (13:15→18:27)
[2021-01-12] MEDS ORDERED: LIDOCAINE 1% (LOCAL ANESTH.) PF 5ml SDV ID ONE (13:45)
[2021-01-12 17:00] VITALS: BP 152/57
[2021-01-12 22:00] VITALS: BP 144/70
[2021-01-12] MEDS: LINEZOLID 600MG/300ML 300 ML IV SCH (22:51)
[2021-01-12] MEDS: SODIUM CHLOR 0.9% PF (SALINE LOCK) 10ML VIAL/SYR IV SCH (22:53)
[2021-01-13] MEDS: InsuLIN REG 1unit/0.01ml Soln (100units/ml) SC SCH ×6 (02:22→22:09)
[2021-01-13] MEDS: AMPICILLIN & SULBACTAM SODIUM 3 GM in SODIUM CHL 0.9% 100 ML IV SCH ×4 (02:23→18:31)
[2021-01-13] MEDS: ACCU-CHEK COMFORT CURVE STRIP VI SCH ×6 (02:24→22:10)
[2021-01-13 05:00] VITALS: BP 161/76
[2021-01-13] MEDS: GABAPENTIN 300 MG CAP PO SCH ×3 (06:25→22:12)
[2021-01-13] MEDS: LEVOTHYROXINE SODIUM 50 MCG TAB PO SCH (06:25)
[2021-01-13 08:30] VITALS: BP 130/68
[2021-01-13] MEDS: LISINOPRIL 20 MG TAB PO SCH (08:56)
[2021-01-13] MEDS: ATORVASTATIN 20 MG TAB PO SCH (08:56)
[2021-01-13] MEDS: CLOPIDOGREL BISULFATE 75 MG TAB PO SCH (08:56)
[2021-01-13] MEDS: ASPirin 81 mg TAB PO SCH (08:57)
[2021-01-13] MEDS: LINEZOLID 600MG/300ML 300 ML IV SCH ×2 (09:04→22:11)
[2021-01-13] MEDS: METOPROLOL TARTRATE 25 MG TAB PO SCH ×2 (09:05→22:11)
[2021-01-13] MEDS: SODIUM CHLOR 0.9% PF (SALINE LOCK) 10ML VIAL/SYR IV SCH ×2 (09:05→22:10)
[2021-01-13 13:53] VITALS: BP 155/72
[2021-01-13 17:09] VITALS: BP 177/201
[2021-01-13] MEDS: MORPHINE SULFATE 4 MG/ML SYR/VIAL IV PRN (18:00)
[2021-01-13] MEDS: hydrALAZINE HCL 20 MG/ML VL IV PRN (18:31)
[2021-01-13 22:00] VITALS: BP 115/64
[2021-01-14] MEDS: ACCU-CHEK COMFORT CURVE STRIP VI SCH ×5 (00:55→16:37)
[2021-01-14] MEDS: InsuLIN REG 1unit/0.01ml Soln (100units/ml) SC SCH ×5 (00:55→16:36)
[2021-01-14] MEDS: AMPICILLIN & SULBACTAM SODIUM 3 GM in SODIUM CHL 0.9% 100 ML IV SCH ×4 (02:07→20:24)
[2021-01-14 05:00] VITALS: BP 148/81
[2021-01-14] MEDS: GABAPENTIN 300 MG CAP PO SCH ×2 (06:49→14:25)
[2021-01-14] MEDS: LEVOTHYROXINE SODIUM 50 MCG TAB PO SCH (06:50)
[2021-01-14 09:00] VITALS: BP 138/77
[2021-01-14] MEDS: ATORVASTATIN 20 MG TAB PO SCH (09:43)
[2021-01-14] MEDS: LINEZOLID 600MG/300ML 300 ML IV SCH (09:43)
[2021-01-14] MEDS: CLOPIDOGREL BISULFATE 75 MG TAB PO SCH (09:43)
[2021-01-14] MEDS: LISINOPRIL 20 MG TAB PO SCH (09:43)
[2021-01-14] MEDS: ASPirin 81 mg TAB PO SCH (09:44)
[2021-01-14] MEDS: METOPROLOL TARTRATE 25 MG TAB PO SCH (09:44)
[2021-01-14] MEDS: SODIUM CHLOR 0.9% PF (SALINE LOCK) 10ML VIAL/SYR IV SCH (09:44)
[2021-01-14] MEDS: hydrALAZINE HCL 20 MG/ML VL IV PRN (12:48)
[2021-01-14 13:00] VITALS: BP 168/95
[2021-01-14 16:59] VITALS: BP 148/72
[2021-01-14 20:26] VITALS: BP 146/96
[2021-01-14 20:34] VITALS: BP 146/96
== END 2021-01-14 21:10 | disposition home health service (06) | DRG 629 ==
LOC: ER 13:58 → EDBD 13:58 → TELE 01-08 07:04 → TELE-WESTW 01-08 19:45 → WEST WING 01-14 12:09
PROVIDERS: ADMIT Internal Medicine; ATTEND Internal Medicine
PROC: 0QBL0ZZ Excision of Right Tarsal, Open Approach (ICD-10-PCS; 2021-01-09)
PROC: 0QBM0ZZ Excision of Left Tarsal, Open Approach (ICD-10-PCS; principal; 2021-01-09 11:55)
PROC: 02HV33Z Insertion of Infusion Device into Superior Vena Cava, Percutaneous Approach (ICD-10-PCS; 2021-01-12)
PROC: B548ZZA Ultrasonography of Superior Vena Cava, Guidance (ICD-10-PCS; 2021-01-12)
DX: E11.621 Type 2 diabetes mellitus with foot ulcer (principal); L97.419 Non-pressure chronic ulcer of right heel and midfoot with unspecified severity; I13.0 Hypertensive heart and chronic kidney disease with heart failure and stage 1 through stage 4 chronic kidney disease, or unspecified chronic kidney disease; M86.8X7 Other osteomyelitis, ankle and foot; G82.20 Paraplegia, unspecified; L97.429 Non-pressure chronic ulcer of left heel and midfoot with unspecified severity; E11.51 Type 2 diabetes mellitus with diabetic peripheral angiopathy without gangrene; E11.22 Type 2 diabetes mellitus with diabetic chronic kidney disease; Z28.21 Immunization not carried out because of patient refusal; L89.159 Pressure ulcer of sacral region, unspecified stage; I25.10 Atherosclerotic heart disease of native coronary artery without angina pectoris; D72.829 Elevated white blood cell count, unspecified; E11.69 Type 2 diabetes mellitus with other specified complication; E78.5 Hyperlipidemia, unspecified; E66.01 Morbid (severe) obesity due to excess calories; F32.A Depression, unspecified; Z20.822 Contact with and (suspected) exposure to COVID-19; N18.9 Chronic kidney disease, unspecified; Z74.01 Bed confinement status; Z79.02 Long term (current) use of antithrombotics/antiplatelets; Z79.82 Long term (current) use of aspirin; Z79.899 Other long term (current) drug therapy; Z82.0 Family history of epilepsy and other diseases of the nervous system; Z82.49 Family history of ischemic heart disease and other diseases of the circulatory system; Z83.3 Family history of diabetes mellitus; Z86.711 Personal history of pulmonary embolism; Z86.73 Personal history of transient ischemic attack (TIA), and cerebral infarction without residual deficits; Z87.891 Personal history of nicotine dependence; Z95.5 Presence of coronary angioplasty implant and graft; Z88.0 Allergy status to penicillin; M77.32 Calcaneal spur, left foot; M77.31 Calcaneal spur, right foot
CPT/HCPCS: 36415; 36569; 71045; 73630; 73721; 80048; 80053; 82962; 83605; 83735; 84100; 84484; 85025; 85610; 85652; 85730; 86141; 86703; 86850; 86900; 86901; 87040; 87070; 87075; 87077; 87186; 87205; 87426; 93005; 93306; 93925; 93970; 96365; 96372; G0378; J0690; J1100; J1815; J2001; J2250; J2405; J2704; J3490

== ENCOUNTER 2021-07-01 23:22 | Inpatient (IN) | payer OTHER ==
[~2021-07-01] VITALS: Ht 172.7 cm; Wt 89.5 kg
[~2021-07-01 23:22] MED LIST changes: +CARV6.2551 PO; +LEVO75TA6 PO; -OMEG120015 PO; +TERB250T66 PO
[2021-07-02 00:09] LABS: Basophils # (auto) 0.1 10 ^3/uL (0-0.2); Basophils % (auto) 0.4 % (0.0-2.0); Eosinophils # (auto) 0.1 10 ^3/uL (0-0.8); Eosinophils % (auto) 0.7 % (0.0-7.0); Hematocrit 39.2 % (41.0-53.0); Hemoglobin 13.3 g/dL (13.5-17.5); Lymphocytes # (auto) 1.9 10 ^3/uL (0.4-5.4); Lymphocytes % (auto) 10.3 % (10.0-50.0); Mean Corpuscular Hemoglobin 31.8 pg (28.0-32.0); Mean Corpuscular Volume 93.6 fL (80.0-100.0); Monocytes # (auto) 1.8 10 ^3/uL (0-1.3); Monocytes % (auto) 9.4 % (0.0-12.0); Neutrophils # (auto) 14.8 10 ^3/uL (1.6-8.6); Neutrophils % (auto) 79.2 % (37.0-80.0); Red Blood Cells 4.19 10^6/uL (4.5-5.90); Red Cell Distribution Width 14.3 % (11.8-14.3); White Blood Cell 18.7 10^3/uL (4.4-10.8)
[2021-07-02 00:16] LABS: Albumin 2.5 g/dL (3.4-5.0); Calcium 8.6 mg/dL (8.5-10.1); Potassium 3.6 mmol/L (3.5-5.1)
[2021-07-02 00:19] LABS: Bilirubin, Total 0.5 mg/dL (0.2-1.0); Total Protein 6.2 g/dL (6.4-8.2)
[2021-07-02] MEDS ORDERED: cefTRIAXone 1GM/50ML D5W 50 ML IV ONE (00:45)
[2021-07-02] MEDS ORDERED: PIPERACILLIN-TAZOB 3.375GM 100 ML IV ONE (00:45)
[2021-07-02] MEDS ORDERED: DEXTROSE (50%) 50ML SYRG IV PRN (04:00)
[2021-07-02] MEDS: GABAPENTIN 300 MG CAP PO SCH ×3 (06:00→21:13)
[2021-07-02] MEDS: InsuLIN REG 1unit/0.01ml Soln (100units/ml) SC SCH ×4 (07:00→21:28)
[2021-07-02] MEDS: ACCU-CHEK COMFORT CURVE STRIP VI SCH ×4 (07:00→21:14)
[2021-07-02] MEDS: LEVOTHYROXINE SODIUM 50 MCG TAB PO SCH ×2 (07:00→10:03)
[2021-07-02] MEDS ORDERED: ONDANSETRON HCL 4 MG/2 ML VIAL IV PRN (09:00)
[2021-07-02 09:02] VITALS: BP 150/75
[2021-07-02] MEDS: PIPERACILLIN-TAZOB 3.375GM 100 ML IV SCH ×2 (10:03→17:29)
[2021-07-02] MEDS: ATORVASTATIN 20 MG TAB PO SCH (10:03)
[2021-07-02] MEDS: ASPirin-EC 81 mg tab PO SCH (10:03)
[2021-07-02] MEDS: LISINOPRIL 20 MG TAB PO SCH (10:03)
[2021-07-02 13:00] VITALS: BP 173/80
[2021-07-02 13:20] VITALS: BP 158/89
[2021-07-02 15:15] VITALS: BP 150/75
[2021-07-02 20:00] VITALS: BP 169/69
[2021-07-02 23:31] VITALS: BP 156/75
[2021-07-03] MEDS: PIPERACILLIN-TAZOB 3.375GM 100 ML IV SCH ×3 (01:11→18:29)
[2021-07-03 05:27] VITALS: BP 150/74
[2021-07-03] MEDS: GABAPENTIN 300 MG CAP PO SCH ×3 (06:04→21:40)
[2021-07-03] MEDS: ACCU-CHEK COMFORT CURVE STRIP VI SCH ×4 (06:05→21:40)
[2021-07-03] MEDS: InsuLIN REG 1unit/0.01ml Soln (100units/ml) SC SCH ×4 (06:13→21:40)
[2021-07-03 09:00] VITALS: BP 150/91
[2021-07-03] MEDS: ACETAMINOPHEN 325 MG TAB PO PRN (10:33)
[2021-07-03] MEDS: ATORVASTATIN 20 MG TAB PO SCH (10:34)
[2021-07-03] MEDS: ASPirin-EC 81 mg tab PO SCH (10:34)
[2021-07-03] MEDS: LISINOPRIL 20 MG TAB PO SCH (10:34)
[2021-07-03 13:28] VITALS: BP 137/84
[2021-07-03 16:58] VITALS: BP 158/83
[2021-07-03 22:00] VITALS: BP 141/80
[2021-07-04] MEDS: PIPERACILLIN-TAZOB 3.375GM 100 ML IV SCH ×3 (00:53→17:28)
[2021-07-04] MEDS: ACETAMINOPHEN 325 MG TAB PO PRN ×2 (00:57→12:00)
[2021-07-04 05:00] VITALS: BP 131/64
[2021-07-04] MEDS: InsuLIN REG 1unit/0.01ml Soln (100units/ml) SC SCH ×4 (05:57→22:00)
[2021-07-04] MEDS: GABAPENTIN 300 MG CAP PO SCH ×3 (06:00→21:53)
[2021-07-04] MEDS: LEVOTHYROXINE SODIUM 50 MCG TAB PO SCH (07:00)
[2021-07-04] MEDS: ACCU-CHEK COMFORT CURVE STRIP VI SCH ×4 (07:00→21:53)
[2021-07-04 09:00] VITALS: BP 132/65
[2021-07-04] MEDS: ATORVASTATIN 20 MG TAB PO SCH (09:25)
[2021-07-04] MEDS: ASPirin-EC 81 mg tab PO SCH (09:25)
[2021-07-04] MEDS: LISINOPRIL 20 MG TAB PO SCH (09:26)
[2021-07-04 13:00] VITALS: BP 132/75
[2021-07-04 17:17] VITALS: BP 133/91
[2021-07-04 22:00] VITALS: BP 168/74
[2021-07-04] MEDS ORDERED: LACTULOSE 20Gm/30ML SOLN PO SCH (22:00)
[2021-07-04] MEDS: hydrALAZINE HCL 20 MG/ML VL IV PRN (22:57)
[2021-07-05] VITALS: BP 151/75
[2021-07-05] MEDS: PIPERACILLIN-TAZOB 3.375GM 100 ML IV SCH ×3 (01:23→17:23)
[2021-07-05 05:00] VITALS: BP 116/80
[2021-07-05] MEDS: GABAPENTIN 300 MG CAP PO SCH ×3 (06:12→22:20)
[2021-07-05] MEDS: InsuLIN REG 1unit/0.01ml Soln (100units/ml) SC SCH ×4 (06:12→22:22)
[2021-07-05] MEDS: ACCU-CHEK COMFORT CURVE STRIP VI SCH ×4 (06:46→22:16)
[2021-07-05] MEDS: LEVOTHYROXINE SODIUM 50 MCG TAB PO SCH (06:46)
[2021-07-05 09:00] VITALS: BP 144/64
[2021-07-05] MEDS: ASPirin-EC 81 mg tab PO SCH (10:15)
[2021-07-05] MEDS: ATORVASTATIN 20 MG TAB PO SCH (10:16)
[2021-07-05] MEDS: LISINOPRIL 20 MG TAB PO SCH (10:17)
[2021-07-05 13:00] VITALS: BP 140/77
[2021-07-05] MEDS ORDERED: FLEET ENEMA(ADULT) 135 ML PR ONE ×2 (14:00→20:00)
[2021-07-05 17:00] VITALS: BP 142/79
[2021-07-05 22:00] VITALS: BP 164/83
[2021-07-05] MEDS: hydrALAZINE HCL 20 MG/ML VL IV PRN (22:23)
[2021-07-06] MEDS: PIPERACILLIN-TAZOB 3.375GM 100 ML IV SCH ×3 (00:43→18:25)
[2021-07-06 05:00] VITALS: BP 150/97
[2021-07-06 06:08] LABS: Basophils # (auto) 0.1 10 ^3/uL (0-0.2); Basophils % (auto) 0.9 % (0.0-2.0); Eosinophils # (auto) 0.8 10 ^3/uL (0-0.8); Eosinophils % (auto) 6.6 % (0.0-7.0); Hemoglobin 12.6 g/dL (13.5-17.5); Lymphocytes # (auto) 2.6 10 ^3/uL (0.4-5.4); Lymphocytes % (auto) 20.6 % (10.0-50.0); Mean Corpuscular Hemoglobin 32.4 pg (28.0-32.0); Mean Corpuscular Volume 92.7 fL (80.0-100.0); Monocytes # (auto) 1.5 10 ^3/uL (0-1.3); Monocytes % (auto) 11.7 % (0.0-12.0); Neutrophils # (auto) 7.6 10 ^3/uL (1.6-8.6); Neutrophils % (auto) 60.2 % (37.0-80.0); Nucleated Red Blood Cells % 0.2 %; Red Blood Cells 3.88 10^6/uL (4.5-5.90); Red Cell Distribution Width 13.7 % (11.8-14.3); White Blood Cell 12.6 10^3/uL (4.4-10.8)
[2021-07-06 06:21] LABS: Albumin 1.9 g/dL (3.4-5.0); Calcium 7.8 mg/dL (8.5-10.1)
[2021-07-06 06:26] LABS: BUN/Creatinine Ratio 12.6; Bilirubin, Total 0.4 mg/dL (0.2-1.0); Total Protein 5.6 g/dL (6.4-8.2)
[2021-07-06] MEDS: GABAPENTIN 300 MG CAP PO SCH ×3 (06:28→22:09)
[2021-07-06 06:29] LABS: Potassium 2.5 mmol/L (3.5-5.1)
[2021-07-06] MEDS: LEVOTHYROXINE SODIUM 50 MCG TAB PO SCH (06:37)
[2021-07-06] MEDS: InsuLIN REG 1unit/0.01ml Soln (100units/ml) SC SCH ×4 (06:40→22:10)
[2021-07-06] MEDS: ACCU-CHEK COMFORT CURVE STRIP VI SCH ×4 (06:40→22:09)
[2021-07-06] MEDS ORDERED: POTASSIUM CHL 20 Meq TABLET PO ONE (06:45)
[2021-07-06 09:00] VITALS: BP 157/79
[2021-07-06] MEDS: ASPirin-EC 81 mg tab PO SCH (11:10)
[2021-07-06] MEDS: LISINOPRIL 20 MG TAB PO SCH (11:11)
[2021-07-06] MEDS: ATORVASTATIN 20 MG TAB PO SCH (11:11)
[2021-07-06] MEDS: DOCUSATE SOD 100 MG CAP PO SCH ×2 (11:12→22:00)
[2021-07-06 17:16] VITALS: BP 134/95
[2021-07-06 21:45] VITALS: BP 197/101
[2021-07-06] MEDS: hydrALAZINE HCL 20 MG/ML VL IV PRN (21:49)
[2021-07-06 22:00] VITALS: BP 195/99
[2021-07-06 22:43] VITALS: BP 136/77
[2021-07-07] MEDS: PIPERACILLIN-TAZOB 3.375GM 100 ML IV SCH ×3 (01:10→18:46)
[2021-07-07 04:53] VITALS: BP 163/69
[2021-07-07] MEDS: GABAPENTIN 300 MG CAP PO SCH ×3 (06:12→22:24)
[2021-07-07] MEDS: LEVOTHYROXINE SODIUM 50 MCG TAB PO SCH (06:39)
[2021-07-07] MEDS: ACCU-CHEK COMFORT CURVE STRIP VI SCH ×4 (06:39→22:16)
[2021-07-07] MEDS: InsuLIN REG 1unit/0.01ml Soln (100units/ml) SC SCH ×4 (06:39→22:24)
[2021-07-07 07:06] LABS: Albumin 1.9 g/dL (3.4-5.0); BUN/Creatinine Ratio 11.8; Bilirubin, Total 0.4 mg/dL (0.2-1.0); Calcium 7.9 mg/dL (8.5-10.1); Total Protein 5.5 g/dL (6.4-8.2)
[2021-07-07 07:09] LABS: Basophils # (auto) 0.1 10 ^3/uL (0-0.2); Basophils % (auto) 0.6 % (0.0-2.0); Eosinophils # (auto) 0.6 10 ^3/uL (0-0.8); Eosinophils % (auto) 4.9 % (0.0-7.0); Hematocrit 35.4 % (41.0-53.0); Hemoglobin 12.2 g/dL (13.5-17.5); Lymphocytes # (auto) 2.1 10 ^3/uL (0.4-5.4); Lymphocytes % (auto) 16.4 % (10.0-50.0); Mean Corpuscular Hemoglobin 31.9 pg (28.0-32.0); Mean Corpuscular Hgb Conc. 34.5 g/dL (32.0-36.0); Mean Corpuscular Volume 92.6 fL (80.0-100.0); Monocytes # (auto) 1.4 10 ^3/uL (0-1.3); Monocytes % (auto) 10.4 % (0.0-12.0); Neutrophils # (auto) 8.8 10 ^3/uL (1.6-8.6); Neutrophils % (auto) 67.7 % (37.0-80.0); Nucleated Red Blood Cells % 0.1 %; Red Blood Cells 3.82 10^6/uL (4.5-5.90); Red Cell Distribution Width 13.7 % (11.8-14.3); White Blood Cell 13.1 10^3/uL (4.4-10.8)
[2021-07-07 07:26] LABS: Potassium 2.8 mmol/L (3.5-5.1)
[2021-07-07 09:00] VITALS: BP 102/72
[2021-07-07] MEDS ORDERED: POTASSIUM CHL 20 Meq TABLET PO ONE (09:30)
[2021-07-07] MEDS: DOCUSATE SOD 100 MG CAP PO SCH ×3 (10:00→22:24)
[2021-07-07] MEDS: POTASSIUM CHL 20MEQ/100ML 100 ML IV SCH ×2 (10:23→14:04)
[2021-07-07] MEDS: ATORVASTATIN 20 MG TAB PO SCH (10:24)
[2021-07-07] MEDS: ASPirin-EC 81 mg tab PO SCH (10:24)
[2021-07-07] MEDS: LISINOPRIL 20 MG TAB PO SCH (11:45)
[2021-07-07 21:38] VITALS: BP 202/90
[2021-07-08] MEDS: PIPERACILLIN-TAZOB 3.375GM 100 ML IV SCH ×2 (00:31→10:17)
[2021-07-08] MEDS: cloNIDine HCL 0.1 MG TAB PO PRN ×2 (00:56→13:33)
[2021-07-08 04:34] VITALS: BP 140/74
[2021-07-08] MEDS: GABAPENTIN 300 MG CAP PO SCH ×3 (05:35→22:16)
[2021-07-08 06:31] LABS: Basophils # (auto) 0.1 10 ^3/uL (0-0.2); Basophils % (auto) 0.7 % (0.0-2.0); Eosinophils # (auto) 0.7 10 ^3/uL (0-0.8); Hematocrit 32.9 % (41.0-53.0); Hemoglobin 11.4 g/dL (13.5-17.5); Lymphocytes # (auto) 2.4 10 ^3/uL (0.4-5.4); Lymphocytes % (auto) 19.4 % (10.0-50.0); Mean Corpuscular Hemoglobin 31.8 pg (28.0-32.0); Mean Corpuscular Hgb Conc. 34.7 g/dL (32.0-36.0); Mean Corpuscular Volume 91.7 fL (80.0-100.0); Monocytes # (auto) 1.1 10 ^3/uL (0-1.3); Monocytes % (auto) 9.1 % (0.0-12.0); Neutrophils % (auto) 64.8 % (37.0-80.0); Nucleated Red Blood Cells % 0.1 %; Red Blood Cells 3.59 10^6/uL (4.5-5.90); Red Cell Distribution Width 13.9 % (11.8-14.3); White Blood Cell 12.3 10^3/uL (4.4-10.8)
[2021-07-08] MEDS: ACCU-CHEK COMFORT CURVE STRIP VI SCH ×4 (06:39→22:16)
[2021-07-08] MEDS: LEVOTHYROXINE SODIUM 50 MCG TAB PO SCH (06:40)
[2021-07-08] MEDS: InsuLIN REG 1unit/0.01ml Soln (100units/ml) SC SCH ×4 (06:40→22:28)
[2021-07-08 06:49] LABS: Albumin 1.8 g/dL (3.4-5.0); Potassium 3.4 mmol/L (3.5-5.1)
[2021-07-08 06:54] LABS: BUN/Creatinine Ratio 9.6; Bilirubin, Total 0.4 mg/dL (0.2-1.0); Total Protein 5.2 g/dL (6.4-8.2)
[2021-07-08 08:30] VITALS: BP 112/65
[2021-07-08 09:00] VITALS: BP 112/65
[2021-07-08] MEDS: DOCUSATE SOD 100 MG CAP PO SCH ×2 (10:00→22:00)
[2021-07-08] MEDS: ATORVASTATIN 20 MG TAB PO SCH (10:18)
[2021-07-08] MEDS: ASPirin-EC 81 mg tab PO SCH (10:18)
[2021-07-08] MEDS: LISINOPRIL 20 MG TAB PO SCH (10:20)
[2021-07-08] MEDS: ACETAMINOPHEN 325 MG TAB PO PRN (10:20)
[2021-07-08 12:27] VITALS: BP 186/91
[2021-07-08] MEDS ORDERED: POTASSIUM CHL 20 Meq TABLET PO ONE (15:45)
[2021-07-08 16:30] VITALS: BP 205/89
[2021-07-08] MEDS ORDERED: amLODIPine BESYLATE 5 MG TAB PO ONE (16:45)
[2021-07-08] MEDS ORDERED: hydrALAZINE HCL 25 MG TAB PO ONE (16:45)
[2021-07-08] MEDS: VANCOMYCIN HCL 125MG/5ML ORAL SOL PO SCH ×2 (17:52→22:17)
[2021-07-08] MEDS: hydrALAZINE HCL 25 MG TAB PO SCH (22:17)
[2021-07-08 22:37] VITALS: BP 150/71
[2021-07-09 05:28] LABS: Basophils # (auto) 0.1 10 ^3/uL (0-0.2); Eosinophils # (auto) 0.7 10 ^3/uL (0-0.8); Eosinophils % (auto) 4.6 % (0.0-7.0); Hematocrit 33.7 % (41.0-53.0); Lymphocytes # (auto) 2.3 10 ^3/uL (0.4-5.4); Lymphocytes % (auto) 15.8 % (10.0-50.0); Mean Corpuscular Hemoglobin 32.5 pg (28.0-32.0); Mean Corpuscular Hgb Conc. 35.5 g/dL (32.0-36.0); Mean Corpuscular Volume 91.6 fL (80.0-100.0); Neutrophils # (auto) 10.5 10 ^3/uL (1.6-8.6); Neutrophils % (auto) 71.6 % (37.0-80.0); Red Blood Cells 3.68 10^6/uL (4.5-5.90); White Blood Cell 14.6 10^3/uL (4.4-10.8)
[2021-07-09 05:31] VITALS: BP 119/58
[2021-07-09 05:45] LABS: Albumin 1.8 g/dL (3.4-5.0); Calcium 8.2 mg/dL (8.5-10.1); Potassium 4.5 mmol/L (3.5-5.1)
[2021-07-09 05:48] LABS: BUN/Creatinine Ratio 11.1; Bilirubin, Total 0.3 mg/dL (0.2-1.0); Total Protein 5.4 g/dL (6.4-8.2)
[2021-07-09] MEDS: GABAPENTIN 300 MG CAP PO SCH ×3 (06:39→21:57)
[2021-07-09] MEDS: LEVOTHYROXINE SODIUM 50 MCG TAB PO SCH (06:39)
[2021-07-09] MEDS: VANCOMYCIN HCL 125MG/5ML ORAL SOL PO SCH ×4 (06:39→21:56)
[2021-07-09] MEDS: ACCU-CHEK COMFORT CURVE STRIP VI SCH ×4 (07:00→21:57)
[2021-07-09] MEDS: InsuLIN REG 1unit/0.01ml Soln (100units/ml) SC SCH ×4 (07:00→22:04)
[2021-07-09 08:41] VITALS: BP 134/68
[2021-07-09] MEDS: ASPirin-EC 81 mg tab PO SCH (09:45)
[2021-07-09] MEDS: CLOPIDOGREL BISULFATE 75 MG TAB PO SCH (09:45)
[2021-07-09] MEDS: ATORVASTATIN 20 MG TAB PO SCH (09:45)
[2021-07-09] MEDS: amLODIPine BESYLATE 5 MG TAB PO SCH (09:46)
[2021-07-09] MEDS: DOCUSATE SOD 100 MG CAP PO SCH ×2 (09:47→21:57)
[2021-07-09] MEDS: LISINOPRIL 20 MG TAB PO SCH (09:47)
[2021-07-09] MEDS: hydrALAZINE HCL 25 MG TAB PO SCH ×2 (09:47→21:57)
[2021-07-09 13:00] VITALS: BP 124/64
[2021-07-09 16:38] VITALS: BP 133/68
[2021-07-09 22:00] VITALS: BP 145/82
[2021-07-10 05:00] VITALS: BP 118/63
[2021-07-10] MEDS: VANCOMYCIN HCL 125MG/5ML ORAL SOL PO SCH ×4 (06:15→22:34)
[2021-07-10] MEDS: GABAPENTIN 300 MG CAP PO SCH ×3 (06:15→22:35)
[2021-07-10] MEDS: LEVOTHYROXINE SODIUM 50 MCG TAB PO SCH (06:15)
[2021-07-10] MEDS: ACCU-CHEK COMFORT CURVE STRIP VI SCH ×4 (06:16→22:35)
[2021-07-10] MEDS: InsuLIN REG 1unit/0.01ml Soln (100units/ml) SC SCH ×4 (06:16→22:45)
[2021-07-10 06:56] LABS: Basophils # (auto) 0.1 10 ^3/uL (0-0.2); Basophils % (auto) 0.4 % (0.0-2.0); Eosinophils # (auto) 0.6 10 ^3/uL (0-0.8); Eosinophils % (auto) 3.1 % (0.0-7.0); Hematocrit 33.5 % (41.0-53.0); Hemoglobin 11.3 g/dL (13.5-17.5); Lymphocytes # (auto) 2.4 10 ^3/uL (0.4-5.4); Lymphocytes % (auto) 11.9 % (10.0-50.0); Mean Corpuscular Hemoglobin 31.2 pg (28.0-32.0); Mean Corpuscular Hgb Conc. 33.7 g/dL (32.0-36.0); Mean Corpuscular Volume 92.6 fL (80.0-100.0); Monocytes # (auto) 1.3 10 ^3/uL (0-1.3); Monocytes % (auto) 6.4 % (0.0-12.0); Neutrophils % (auto) 78.2 % (37.0-80.0); Red Blood Cells 3.62 10^6/uL (4.5-5.90); Red Cell Distribution Width 13.9 % (11.8-14.3); White Blood Cell 20.5 10^3/uL (4.4-10.8)
[2021-07-10 07:06] LABS: Albumin 1.9 g/dL (3.4-5.0); Calcium 8.2 mg/dL (8.5-10.1)
[2021-07-10 07:09] LABS: BUN/Creatinine Ratio 11.8; Bilirubin, Total 0.3 mg/dL (0.2-1.0); Total Protein 5.4 g/dL (6.4-8.2)
[2021-07-10 09:00] VITALS: BP 140/59
[2021-07-10] MEDS: amLODIPine BESYLATE 5 MG TAB PO SCH (10:00)
[2021-07-10] MEDS: CLOPIDOGREL BISULFATE 75 MG TAB PO SCH (10:00)
[2021-07-10] MEDS: DOCUSATE SOD 100 MG CAP PO SCH ×2 (10:00→22:35)
[2021-07-10] MEDS: ATORVASTATIN 20 MG TAB PO SCH (10:00)
[2021-07-10] MEDS: ASPirin-EC 81 mg tab PO SCH (10:00)
[2021-07-10] MEDS: LISINOPRIL 20 MG TAB PO SCH (10:00)
[2021-07-10] MEDS: hydrALAZINE HCL 25 MG TAB PO SCH ×2 (10:00→22:35)
[2021-07-10] MEDS: SODIUM CHLORIDE 0.9% 1,000 ML IV SCH (12:15)
[2021-07-10] MEDS: FLORASTOR (S. BOULARDII) 250 MG CAP PO SCH (12:24)
[2021-07-10 13:00] VITALS: BP 106/52
[2021-07-10 17:00] VITALS: BP 115/61
[2021-07-10 22:00] VITALS: BP 166/63
[2021-07-10] MEDS: CHOLESTYRAMINE 4 GM POWDER PO SCH (23:14)
[2021-07-11] MEDS: SODIUM CHLORIDE 0.9% 1,000 ML IV SCH (01:35)
[2021-07-11 05:00] VITALS: BP 139/57
[2021-07-11 05:42] LABS: Potassium 3.7 mmol/L (3.5-5.1)
[2021-07-11 05:49] LABS: Albumin 1.8 g/dL (3.4-5.0); BUN/Creatinine Ratio 13.1; Bilirubin, Total 0.2 mg/dL (0.2-1.0); Calcium 7.9 mg/dL (8.5-10.1); Total Protein 5.4 g/dL (6.4-8.2)
[2021-07-11] MEDS: VANCOMYCIN HCL 125MG/5ML ORAL SOL PO SCH ×4 (06:02→21:19)
[2021-07-11] MEDS: GABAPENTIN 300 MG CAP PO SCH ×3 (06:02→21:20)
[2021-07-11] MEDS: LEVOTHYROXINE SODIUM 50 MCG TAB PO SCH (06:03)
[2021-07-11 06:15] LABS: Basophils # (auto) 0.1 10 ^3/uL (0-0.2); Basophils % (auto) 0.4 % (0.0-2.0); Eosinophils # (auto) 0.5 10 ^3/uL (0-0.8); Eosinophils % (auto) 2.9 % (0.0-7.0); Hematocrit 33.1 % (41.0-53.0); Lymphocytes # (auto) 2.7 10 ^3/uL (0.4-5.4); Mean Corpuscular Hemoglobin 30.8 pg (28.0-32.0); Mean Corpuscular Hgb Conc. 33.3 g/dL (32.0-36.0); Mean Corpuscular Volume 92.5 fL (80.0-100.0); Monocytes # (auto) 1.2 10 ^3/uL (0-1.3); Monocytes % (auto) 6.3 % (0.0-12.0); Neutrophils # (auto) 14.5 10 ^3/uL (1.6-8.6); Neutrophils % (auto) 76.4 % (37.0-80.0); Red Blood Cells 3.59 10^6/uL (4.5-5.90); Red Cell Distribution Width 13.9 % (11.8-14.3)
[2021-07-11] MEDS: ACCU-CHEK COMFORT CURVE STRIP VI SCH ×4 (06:16→21:27)
[2021-07-11] MEDS: InsuLIN REG 1unit/0.01ml Soln (100units/ml) SC SCH ×4 (06:16→21:31)
[2021-07-11] MEDS: ACETAMINOPHEN 325 MG TAB PO PRN (06:17)
[2021-07-11 08:43] VITALS: BP 141/60
[2021-07-11] MEDS: ASPirin-EC 81 mg tab PO SCH (09:56)
[2021-07-11] MEDS: amLODIPine BESYLATE 5 MG TAB PO SCH (09:57)
[2021-07-11] MEDS: hydrALAZINE HCL 25 MG TAB PO SCH ×2 (09:57→21:19)
[2021-07-11] MEDS: ATORVASTATIN 20 MG TAB PO SCH (09:58)
[2021-07-11] MEDS: DOCUSATE SOD 100 MG CAP PO SCH ×2 (09:59→21:20)
[2021-07-11] MEDS: CIPROFLOXACIN HCL 500 MG TAB PO SCH ×2 (10:00→21:20)
[2021-07-11] MEDS: FLORASTOR (S. BOULARDII) 250 MG CAP PO SCH ×2 (10:00→10:01)
[2021-07-11] MEDS: LISINOPRIL 20 MG TAB PO SCH (10:00)
[2021-07-11] MEDS: CLOPIDOGREL BISULFATE 75 MG TAB PO SCH (10:01)
[2021-07-11] MEDS: CHOLESTYRAMINE 4 GM POWDER PO SCH ×2 (11:00→22:42)
[2021-07-11 12:56] VITALS: BP 159/74
[2021-07-11 14:51] LABS: Urine Bacteria NONE SEEN /hpf (None Seen); Urine Blood Negative /uL (Negative); Urine Budding Yeast OCCASIONAL /hpf (None Seen); Urine Specific Gravity 1.009 (1.001-1.035); Urine WBC 14 /hpf (0 - 3)
[2021-07-11 16:37] VITALS: BP 158/67
[2021-07-11 22:00] VITALS: BP 145/60
[2021-07-12 05:00] VITALS: BP 149/65
[2021-07-12] MEDS: VANCOMYCIN HCL 125MG/5ML ORAL SOL PO SCH ×4 (06:14→21:46)
[2021-07-12] MEDS: GABAPENTIN 300 MG CAP PO SCH ×3 (06:14→21:46)
[2021-07-12] MEDS: InsuLIN REG 1unit/0.01ml Soln (100units/ml) SC SCH ×4 (06:15→21:46)
[2021-07-12] MEDS: ACCU-CHEK COMFORT CURVE STRIP VI SCH ×4 (06:15→21:46)
[2021-07-12] MEDS: LEVOTHYROXINE SODIUM 50 MCG TAB PO SCH (06:15)
[2021-07-12 09:21] VITALS: BP 156/61
[2021-07-12] MEDS: FLORASTOR (S. BOULARDII) 250 MG CAP PO SCH ×2 (09:51→09:52)
[2021-07-12] MEDS: ASPirin-EC 81 mg tab PO SCH (09:51)
[2021-07-12] MEDS: hydrALAZINE HCL 25 MG TAB PO SCH ×2 (09:51→21:46)
[2021-07-12] MEDS: CIPROFLOXACIN HCL 500 MG TAB PO SCH ×2 (09:51→21:46)
[2021-07-12] MEDS: DOCUSATE SOD 100 MG CAP PO SCH ×2 (09:51→21:45)
[2021-07-12] MEDS: CLOPIDOGREL BISULFATE 75 MG TAB PO SCH (09:52)
[2021-07-12] MEDS: ATORVASTATIN 20 MG TAB PO SCH (09:52)
[2021-07-12] MEDS: amLODIPine BESYLATE 5 MG TAB PO SCH (09:52)
[2021-07-12] MEDS: ACETAMINOPHEN 325 MG TAB PO PRN (09:52)
[2021-07-12] MEDS: LISINOPRIL 20 MG TAB PO SCH (09:52)
[2021-07-12] MEDS: CHOLESTYRAMINE 4 GM POWDER PO SCH ×2 (10:53→23:26)
[2021-07-12 13:00] VITALS: BP 123/58
[2021-07-12 13:53] LABS: BUN/Creatinine Ratio 11.8; Calcium 8.1 mg/dL (8.5-10.1); Potassium 4.1 mmol/L (3.5-5.1)
[2021-07-12 17:00] VITALS: BP 145/60
[2021-07-12 21:57] VITALS: BP 154/74
[2021-07-13 04:24] VITALS: BP 145/62
[2021-07-13 06:01] LABS: BUN/Creatinine Ratio 10.7; Calcium 7.8 mg/dL (8.5-10.1); Potassium 4.1 mmol/L (3.5-5.1)
[2021-07-13] MEDS: VANCOMYCIN HCL 125MG/5ML ORAL SOL PO SCH ×4 (06:44→21:33)
[2021-07-13] MEDS: GABAPENTIN 300 MG CAP PO SCH ×3 (06:45→21:34)
[2021-07-13] MEDS: InsuLIN REG 1unit/0.01ml Soln (100units/ml) SC SCH ×4 (06:45→22:39)
[2021-07-13] MEDS: LEVOTHYROXINE SODIUM 50 MCG TAB PO SCH (06:45)
[2021-07-13] MEDS: ACCU-CHEK COMFORT CURVE STRIP VI SCH ×4 (06:46→22:36)
[2021-07-13 09:00] VITALS: BP 151/82
[2021-07-13] MEDS: CIPROFLOXACIN HCL 500 MG TAB PO SCH ×2 (09:35→21:33)
[2021-07-13] MEDS: DOCUSATE SOD 100 MG CAP PO SCH ×2 (09:35→21:33)
[2021-07-13] MEDS: hydrALAZINE HCL 25 MG TAB PO SCH ×2 (09:35→22:35)
[2021-07-13] MEDS: FLORASTOR (S. BOULARDII) 250 MG CAP PO SCH (09:36)
[2021-07-13] MEDS: ASPirin-EC 81 mg tab PO SCH (09:36)
[2021-07-13] MEDS: ATORVASTATIN 20 MG TAB PO SCH (09:36)
[2021-07-13] MEDS: CLOPIDOGREL BISULFATE 75 MG TAB PO SCH (09:37)
[2021-07-13] MEDS: amLODIPine BESYLATE 5 MG TAB PO SCH (09:37)
[2021-07-13] MEDS: LISINOPRIL 20 MG TAB PO SCH (09:38)
[2021-07-13] MEDS: ACETAMINOPHEN 325 MG TAB PO PRN (09:38)
[2021-07-13] MEDS: CHOLESTYRAMINE 4 GM POWDER PO SCH ×2 (11:47→22:44)
[2021-07-13 13:19] VITALS: BP 120/60
[2021-07-13] MEDS ORDERED: VANC125PO PO (15:26)
[2021-07-13] MEDS ORDERED: AML5T PO (15:26)
[2021-07-13] MEDS ORDERED: HYDR25TA87 PO (15:26)
[2021-07-13] MEDS ORDERED: CHL4PW PO (15:26)
[2021-07-13] MEDS ORDERED: SACC250C PO (15:26)
[2021-07-13] MEDS ORDERED: CIP500T PO (15:26)
[2021-07-13 16:30] VITALS: BP 142/60
[2021-07-13 22:00] VITALS: BP 136/68
[2021-07-14 05:00] VITALS: BP 141/60
[2021-07-14 05:46] LABS: Albumin 1.9 g/dL (3.4-5.0); Calcium 7.7 mg/dL (8.5-10.1); Potassium 3.9 mmol/L (3.5-5.1)
[2021-07-14 05:50] LABS: BUN/Creatinine Ratio 9.8; Bilirubin, Total 0.2 mg/dL (0.2-1.0); Total Protein 5.7 g/dL (6.4-8.2)
[2021-07-14] MEDS: VANCOMYCIN HCL 125MG/5ML ORAL SOL PO SCH ×4 (06:00→22:46)
[2021-07-14] MEDS: GABAPENTIN 300 MG CAP PO SCH ×3 (06:01→22:47)
[2021-07-14] MEDS: InsuLIN REG 1unit/0.01ml Soln (100units/ml) SC SCH ×4 (06:01→22:46)
[2021-07-14] MEDS: LEVOTHYROXINE SODIUM 50 MCG TAB PO SCH (06:01)
[2021-07-14] MEDS: ACCU-CHEK COMFORT CURVE STRIP VI SCH ×4 (06:02→22:47)
[2021-07-14 08:00] VITALS: BP 156/87
[2021-07-14 08:59] VITALS: BP 156/87
[2021-07-14] MEDS: DOCUSATE SOD 100 MG CAP PO SCH ×2 (09:45→22:46)
[2021-07-14] MEDS: CIPROFLOXACIN HCL 500 MG TAB PO SCH ×2 (09:46→22:46)
[2021-07-14] MEDS: ASPirin-EC 81 mg tab PO SCH (09:46)
[2021-07-14] MEDS: LISINOPRIL 20 MG TAB PO SCH (09:47)
[2021-07-14] MEDS: CLOPIDOGREL BISULFATE 75 MG TAB PO SCH (09:47)
[2021-07-14] MEDS: ATORVASTATIN 20 MG TAB PO SCH (09:48)
[2021-07-14] MEDS: FLORASTOR (S. BOULARDII) 250 MG CAP PO SCH (09:48)
[2021-07-14] MEDS: amLODIPine BESYLATE 5 MG TAB PO SCH (09:49)
[2021-07-14] MEDS: hydrALAZINE HCL 25 MG TAB PO SCH ×2 (09:50→22:46)
[2021-07-14] MEDS: CHOLESTYRAMINE 4 GM POWDER PO SCH ×2 (11:17→22:47)
[2021-07-14 12:56] VITALS: BP 108/57
[2021-07-14 17:00] VITALS: BP 147/76
[2021-07-14 22:00] VITALS: BP 163/68
[2021-07-15 05:00] VITALS: BP 133/76
[2021-07-15] MEDS: ACCU-CHEK COMFORT CURVE STRIP VI SCH ×3 (05:43→17:20)
[2021-07-15] MEDS: LEVOTHYROXINE SODIUM 50 MCG TAB PO SCH (05:43)
[2021-07-15] MEDS: GABAPENTIN 300 MG CAP PO SCH ×2 (05:43→14:30)
[2021-07-15] MEDS: VANCOMYCIN HCL 125MG/5ML ORAL SOL PO SCH ×2 (05:43→11:55)
[2021-07-15] MEDS: InsuLIN REG 1unit/0.01ml Soln (100units/ml) SC SCH ×3 (06:28→17:00)
[2021-07-15 08:00] VITALS: BP 144/87
[2021-07-15 09:08] VITALS: BP 144/69
[2021-07-15] MEDS: ATORVASTATIN 20 MG TAB PO SCH (10:24)
[2021-07-15] MEDS: FLORASTOR (S. BOULARDII) 250 MG CAP PO SCH (10:26)
[2021-07-15] MEDS: amLODIPine BESYLATE 5 MG TAB PO SCH (10:26)
[2021-07-15] MEDS: ASPirin-EC 81 mg tab PO SCH (10:26)
[2021-07-15] MEDS: CIPROFLOXACIN HCL 500 MG TAB PO SCH (10:26)
[2021-07-15] MEDS: DOCUSATE SOD 100 MG CAP PO SCH (10:26)
[2021-07-15] MEDS: LISINOPRIL 20 MG TAB PO SCH (10:27)
[2021-07-15] MEDS: hydrALAZINE HCL 25 MG TAB PO SCH (10:27)
[2021-07-15] MEDS: CHOLESTYRAMINE 4 GM POWDER PO SCH (10:33)
[2021-07-15] MEDS: CLOPIDOGREL BISULFATE 75 MG TAB PO SCH (10:33)
[2021-07-15 11:12] VITALS: BP 144/69
[2021-07-15 12:51] VITALS: BP 145/72
[2021-07-15 16:50] VITALS: BP 121/52
== END 2021-07-15 17:57 | disposition home health service (06) | DRG 871 ==
LOC: EDBD 23:22 → ER 23:22 → OVERFLOW 07-02 03:33 → EAST 07-02 07:09
PROVIDERS: ADMIT Internal Medicine; ATTEND Internal Medicine
DX: A41.9 Sepsis, unspecified organism (principal); N17.0 Acute kidney failure with tubular necrosis; I50.22 Chronic systolic (congestive) heart failure; A04.72 Enterocolitis due to Clostridium difficile, not specified as recurrent; I13.0 Hypertensive heart and chronic kidney disease with heart failure and stage 1 through stage 4 chronic kidney disease, or unspecified chronic kidney disease; L97.429 Non-pressure chronic ulcer of left heel and midfoot with unspecified severity; N39.0 Urinary tract infection, site not specified; R18.8 Other ascites; L97.419 Non-pressure chronic ulcer of right heel and midfoot with unspecified severity; E11.621 Type 2 diabetes mellitus with foot ulcer; E11.22 Type 2 diabetes mellitus with diabetic chronic kidney disease; I25.10 Atherosclerotic heart disease of native coronary artery without angina pectoris; Z20.822 Contact with and (suspected) exposure to COVID-19; E11.40 Type 2 diabetes mellitus with diabetic neuropathy, unspecified; E11.51 Type 2 diabetes mellitus with diabetic peripheral angiopathy without gangrene; N18.9 Chronic kidney disease, unspecified; Z82.0 Family history of epilepsy and other diseases of the nervous system; Z82.49 Family history of ischemic heart disease and other diseases of the circulatory system; Z83.3 Family history of diabetes mellitus; F32.A Depression, unspecified; Z74.01 Bed confinement status; Z88.0 Allergy status to penicillin
CPT/HCPCS: 36415; 71045; 74176; 80048; 80053; 81001; 82550; 82962; 83605; 83880; 84132; 84484; 85025; 87040; 87493; 93005; 93306; 96365; 96366; 96367; 97163; G0378; J0696; J1815; J2405; J2543; J3480

== ENCOUNTER 2021-11-12 20:37 | Inpatient (IN) | payer OTHER ==
[~2021-11-12] VITALS: Ht 167.6 cm; Wt 93.9 kg
[~2021-11-12 20:37] MED LIST changes: +AML5T PO; +CHL4PW PO; +CIP500T PO; +HYDR25TA87 PO; -LEVO50TA7 PO; +SACC250C PO; +VANC125PO PO
[2021-11-12 21:35] LABS: Hematocrit 39.8 % (41.0-53.0); Hemoglobin 13.2 g/dL (13.5-17.5); Mean Corpuscular Hemoglobin 31.4 pg (28.0-32.0); Mean Corpuscular Hgb Conc. 33.2 g/dL (32.0-36.0); Mean Corpuscular Volume 94.5 fL (80.0-100.0); Red Blood Cells 4.21 10^6/uL (4.5-5.90); Red Cell Distribution Width 13.9 % (11.8-14.3); White Blood Cell 28.4 10^3/uL (4.4-10.8)
[2021-11-12 21:42] LABS: Basophils % (manual) 0 (0.0-2.0); Blast Cells 0; Eosinophils % (manual) 0 (0-7); Metamyelocytes % 0; Myelocytes % 0; Promyelocytes % 0; Reactive Lymphocytes 0
[2021-11-12 22:03] LABS: Lactic Acid w/Reflex 3.4 mmol/L (0.4-2.0)
[2021-11-12 22:08] LABS: Band Neutrophils % (manual) 34; Lymphocytes % (manual) 5 (10.0-50.0); Monocytes % (manual) 6 (0-12)
[2021-11-12 22:10] LABS: Alanine Aminotransferase 32 U/L (16-61); Albumin 2.7 g/dL (3.4-5.0); Anion Gap 9 (5-15); Aspartate Aminotransferase 27 U/L (15-37); BUN/Creatinine Ratio 22.3; Blood Urea Nitrogen 48 mg/dL (7-18); Calcium 8.1 mg/dL (8.5-10.1); Carbon Dioxide 19 mmol/L (21-32); Chloride 109 mmol/L (98-107); GFR African American 39 mL/min; GFR Non-African American 32 mL/min; Glucose 206 mg/dL (74-106); Sodium 137 mmol/L (136-145)
[2021-11-12 22:13] LABS: Alkaline Phosphatase 186 U/L (45-117); Bilirubin, Total 0.8 mg/dL (0.2-1.0); Total Protein 6.5 g/dL (6.4-8.2)
[2021-11-12 22:17] LABS: Potassium 6.2 mmol/L (3.5-5.1)
[2021-11-12] MEDS ORDERED: ALBUTEROL SULF 2.5 MG/0.5ML(0.5%) NEB SOLN NEB ONE (22:30)
[2021-11-12] MEDS ORDERED: SODIUM BICARBONATE 8.4% INJ 50ML SYRINGE IV ONE (22:30)
[2021-11-12] MEDS ORDERED: DEXTROSE (50%) 50ML SYRG IV ONE (22:30)
[2021-11-12] MEDS ORDERED: CALCIUM GLUC 1,000mg/50ml-NS 50 ML IV ONE (22:30)
[2021-11-12] MEDS ORDERED: InsuLIN REG 1unit/0.01ml Soln (100units/ml) IV ONE (22:30)
[2021-11-12] MEDS ORDERED: SODIUM CHLORIDE 0.9% 2,000 ML IV ONE (22:30)
[2021-11-12] MEDS ORDERED: FUROSEMIDE 40 MG/4 ML VIAL IV ONE (22:30)
[2021-11-12] MEDS ORDERED: HYDROcodone-ACET 5/325MG TAB PO ONE (22:45)
[2021-11-12] MEDS ORDERED: SODIUM CHLORIDE 0.9% 1,000 ML IV ONE (23:00)
[2021-11-12] MEDS ORDERED: metroNIDAZOLE 500MG/100ML 100 ML IV ONE (23:00)
[2021-11-12] MEDS ORDERED: PANTOPRAZOLE 40 MG/10 ML VIAL INJ IV ONE (23:45)
[2021-11-12] MEDS ORDERED: ONDANSETRON HCL 4 MG/2 ML VIAL IV ONE (23:45)
[2021-11-12] MEDS ORDERED: fentaNYL CITRATE 100 MCG/2 ML VL IV ONE (23:45)
[2021-11-13] MEDS ORDERED: OCTREOTIDE ACETATE 100 MCG/ML VL IV ONE (00:45)
[2021-11-13 00:53] LABS: Hematocrit 36.4 % (41.0-53.0); Hemoglobin 11.9 g/dL (13.5-17.5)
[2021-11-13] MEDS ORDERED: ONDANSETRON HCL 4 MG/2 ML VIAL IV PRN (03:00)
[2021-11-13] MEDS ORDERED: ALBUTEROL SULF 2.5 MG/0.5ML(0.5%) NEB SOLN NEB PRN (03:00)
[2021-11-13] MEDS ORDERED: VANCOMYCIN PER PHARMACY 0 MG IV SCH (03:00)
[2021-11-13] MEDS ORDERED: DOCUSATE SOD 100 MG CAP PO PRN (03:00)
[2021-11-13] MEDS ORDERED: DEXTROSE (50%) 50ML SYRG IV PRN (03:00)
[2021-11-13] MEDS ORDERED: IPRATROPIUM BROM 0.5 MG/2.5ML INH SOL NEB PRN (03:00)
[2021-11-13 03:11] VITALS: BP 98/59
[2021-11-13] MEDS ORDERED: VANCOMYCIN 1GM/250ML 250 ML IV ONE (03:15)
[2021-11-13 03:26] VITALS: BP 102/56
[2021-11-13] MEDS ORDERED: MORPHINE SULFATE INJ 2 MG/ml SYRG IV PRN (04:00)
[2021-11-13] MEDS ORDERED: NITROGLYCERIN 0.4 MG SL TAB SL PRN (04:00)
[2021-11-13] MEDS ORDERED: ALBUTEROL SULF 2.5 MG/0.5ML(0.5%) NEB SOLN NEB ONE (04:15)
[2021-11-13] MEDS ORDERED: DEXTROSE (50%) 50ML SYRG IV ONE (04:15)
[2021-11-13] MEDS ORDERED: CALCIUM GLUC 1,000mg/50ml-NS 50 ML IV ONE (04:15)
[2021-11-13] MEDS ORDERED: InsuLIN REG 1unit/0.01ml Soln (100units/ml) IV ONE (04:15)
[2021-11-13] MEDS ORDERED: SODIUM BICARBONATE 8.4% INJ 50ML SYRINGE IV ONE (04:15)
[2021-11-13] MEDS: ALBUMIN 25% 100 ML IV SCH ×3 (04:24→19:09)
[2021-11-13 05:15] VITALS: BP 102/51
[2021-11-13] MEDS: SODIUM CHLOR 0.9% PF (SALINE LOCK) 10ML VIAL/SYR IV SCH ×3 (06:05→21:18)
[2021-11-13 06:38] VITALS: BP 114/46
[2021-11-13 06:47] LABS: Albumin 2.9 g/dL (3.4-5.0); BUN/Creatinine Ratio 23.4; Magnesium 2.9 mg/dL (1.6-2.6); Potassium 5.4 mmol/L (3.5-5.1)
[2021-11-13 06:49] LABS: Lactic Acid w/Reflex 5.2 mmol/L (0.4-2.0)
[2021-11-13 06:50] LABS: Bilirubin, Total 0.8 mg/dL (0.2-1.0)
[2021-11-13] MEDS: InsuLIN REG 1unit/0.01ml Soln (100units/ml) SC SCH ×4 (07:00→21:09)
[2021-11-13 07:02] LABS: Hematocrit 35.9 % (41.0-53.0); Hemoglobin 12.3 g/dL (13.5-17.5); Mean Corpuscular Hemoglobin 32.1 pg (28.0-32.0); Mean Corpuscular Hgb Conc. 34.1 g/dL (32.0-36.0); Mean Corpuscular Volume 94.3 fL (80.0-100.0); Red Blood Cells 3.81 10^6/uL (4.5-5.90)
[2021-11-13 07:09] LABS: Basophils % (manual) 0 (0.0-2.0); Blast Cells 0; Eosinophils % (manual) 0 (0-7); Metamyelocytes % 0; Myelocytes % 0; Promyelocytes % 0; Reactive Lymphocytes 0
[2021-11-13 08:09] LABS: Band Neutrophils % (manual) 22; Lymphocytes % (manual) 16 (10.0-50.0); Monocytes % (manual) 4 (0-12)
[2021-11-13] MEDS: ACCU-CHEK COMFORT CURVE STRIP VI SCH ×4 (09:15→21:08)
[2021-11-13] MEDS: metroNIDAZOLE 500MG/100ML 100 ML IV SCH ×3 (09:25→21:19)
[2021-11-13] MEDS: LEVOTHYROXINE SODIUM 25 MCG TAB PO SCH (09:25)
[2021-11-13] MEDS ORDERED: FAMOTIDINE (10MG/ML) 2ML VL IV SCH ×2 (10:00)
[2021-11-13] MEDS: CLOPIDOGREL BISULFATE 75 MG TAB PO SCH (10:29)
[2021-11-13] MEDS: ASPirin 81 mg TAB PO SCH (10:29)
[2021-11-13] MEDS: FAMOTIDINE (10MG/ML) 2ML VL IV SCH (10:29)
[2021-11-13] MEDS ORDERED: SODIUM CHLORIDE 0.9% 1,000 ML IV SCH (16:45)
[2021-11-13] MEDS: SOD CHL 0.45% 1,000 ML IV SCH (17:11)
[2021-11-13 17:19] LABS: Urine Bacteria NONE SEEN /hpf (None Seen); Urine Blood Negative /uL (Negative); Urine Hyaline Cast FEW /lpf (0 - 2); Urine Specific Gravity 1.017 (1.001-1.035); Urine WBC 1 /hpf (0 - 3)
[2021-11-13 17:33] LABS: Alcohol, Urine < 3.0 mg/dL (0-10); Amphetamine Screen, Urine NEGATIVE (NEGATIVE); Barbiturate Scree,Urine NEGATIVE (NEGATIVE); Benzodiazephine Screen, Urine NEGATIVE (NEGATIVE); Cannabinoid Screen, Urine NEGATIVE (NEGATIVE); Cocaine Screen, Urine NEGATIVE (NEGATIVE); Opiate Scree,Urine NEGATIVE (NEGATIVE); Phencyclidine Screen, Urine NEGATIVE (NEGATIVE)
[2021-11-13 22:00] VITALS: BP 114/45
[2021-11-14] VITALS (7 sets, daily range): BP systolic 89–106; BP diastolic 35–62
[2021-11-14] MEDS: SOD CHL 0.45% 1,000 ML IV SCH ×2 (03:00→13:46)
[2021-11-14 06:17] LABS: Basophils # (auto) 0 10 ^3/uL (0-0.2); Basophils % (auto) 0.1 % (0.0-2.0); Eosinophils # (auto) 0 10 ^3/uL (0-0.8); Eosinophils % (auto) 0.1 % (0.0-7.0); Hematocrit 35.6 % (41.0-53.0); Hemoglobin 11.7 g/dL (13.5-17.5); Lymphocytes # (auto) 0.8 10 ^3/uL (0.4-5.4); Lymphocytes % (auto) 4.4 % (10.0-50.0); Mean Corpuscular Hemoglobin 30.9 pg (28.0-32.0); Mean Corpuscular Hgb Conc. 32.8 g/dL (32.0-36.0); Mean Corpuscular Volume 94.2 fL (80.0-100.0); Monocytes # (auto) 1.7 10 ^3/uL (0-1.3); Monocytes % (auto) 9.4 % (0.0-12.0); Neutrophils # (auto) 15.7 10 ^3/uL (1.6-8.6); Red Blood Cells 3.78 10^6/uL (4.5-5.90); Red Cell Distribution Width 14.2 % (11.8-14.3); White Blood Cell 18.2 10^3/uL (4.4-10.8)
[2021-11-14 06:25] LABS: Calcium 8.2 mg/dL (8.5-10.1)
[2021-11-14 06:31] LABS: BUN/Creatinine Ratio 25.1; Bilirubin, Total 1.1 mg/dL (0.2-1.0)
[2021-11-14] MEDS: ACCU-CHEK COMFORT CURVE STRIP VI SCH ×4 (06:40→22:46)
[2021-11-14] MEDS: LEVOTHYROXINE SODIUM 25 MCG TAB PO SCH (06:40)
[2021-11-14] MEDS: SODIUM CHLOR 0.9% PF (SALINE LOCK) 10ML VIAL/SYR IV SCH ×3 (06:40→22:46)
[2021-11-14] MEDS: metroNIDAZOLE 500MG/100ML 100 ML IV SCH ×3 (06:41→22:46)
[2021-11-14] MEDS: InsuLIN REG 1unit/0.01ml Soln (100units/ml) SC SCH ×4 (06:41→22:00)
[2021-11-14 06:49] LABS: Potassium 6.7 mmol/L (3.5-5.1)
[2021-11-14] MEDS ORDERED: CALCIUM GLUC 1,000mg/50ml-NS 50 ML IV ONE (08:30)
[2021-11-14] MEDS ORDERED: InsuLIN REG 1unit/0.01ml Soln (100units/ml) IV ONE (08:30)
[2021-11-14] MEDS ORDERED: DEXTROSE (50%) 50ML SYRG IV ONE (08:30)
[2021-11-14] MEDS ORDERED: SODIUM BICARBONATE 8.4 % INJ 50ML VIAL IV ONE (08:30)
[2021-11-14] MEDS: FAMOTIDINE (10MG/ML) 2ML VL IV SCH (10:25)
[2021-11-14] MEDS: ASPirin 81 mg TAB PO SCH (10:26)
[2021-11-14] MEDS: CLOPIDOGREL BISULFATE 75 MG TAB PO SCH (10:26)
[2021-11-14] MEDS: ACETAMINOPHEN 325 MG TAB PO PRN (10:27)
[2021-11-14] MEDS ORDERED: VANCOMYCIN 1GM/250ML 250 ML IV ONE (11:00)
[2021-11-15] VITALS (7 sets, daily range): BP systolic 96–114; BP diastolic 54–67
[2021-11-15] MEDS: SOD CHL 0.45% 1,000 ML IV SCH ×2 (05:03→09:52)
[2021-11-15] MEDS: LEVOTHYROXINE SODIUM 25 MCG TAB PO SCH (05:44)
[2021-11-15] MEDS: metroNIDAZOLE 500MG/100ML 100 ML IV SCH ×3 (06:00→22:08)
[2021-11-15 06:32] LABS: Hematocrit 35.5 % (41.0-53.0); Hemoglobin 11.7 g/dL (13.5-17.5); Mean Corpuscular Hgb Conc. 33.1 g/dL (32.0-36.0); Mean Corpuscular Volume 93.6 fL (80.0-100.0); Red Blood Cells 3.79 10^6/uL (4.5-5.90); Red Cell Distribution Width 13.9 % (11.8-14.3); White Blood Cell 15.2 10^3/uL (4.4-10.8)
[2021-11-15 06:49] LABS: Calcium 8.2 mg/dL (8.5-10.1); Magnesium 3.5 mg/dL (1.6-2.6); Potassium 5.4 mmol/L (3.5-5.1)
[2021-11-15 06:52] LABS: BUN/Creatinine Ratio 27.6
[2021-11-15 06:57] LABS: Basophils % (manual) 0 (0.0-2.0); Blast Cells 0; Eosinophils % (manual) 0 (0-7); Promyelocytes % 0; Reactive Lymphocytes 0
[2021-11-15] MEDS: InsuLIN REG 1unit/0.01ml Soln (100units/ml) SC SCH ×4 (07:00→22:00)
[2021-11-15] MEDS: ACCU-CHEK COMFORT CURVE STRIP VI SCH ×4 (07:03→22:05)
[2021-11-15] MEDS: SODIUM CHLOR 0.9% PF (SALINE LOCK) 10ML VIAL/SYR IV SCH ×3 (07:03→22:08)
[2021-11-15] MEDS: CLOPIDOGREL BISULFATE 75 MG TAB PO SCH (10:01)
[2021-11-15] MEDS: ASPirin 81 mg TAB PO SCH (10:01)
[2021-11-15] MEDS ORDERED: LIDOCAINE 2%HCL (LOCAL ANESTH.) INJ 10ml MDV IJ ONE (11:45)
[2021-11-15] MEDS ORDERED: HEPARIN 1,000 UNITS/ml 1ML VIAL IV ONE ×2 (11:45)
[2021-11-15] MEDS ORDERED: LIDOCAINE 2% (LOCAL ANESTH.) PF 5ml SDV IJ ONE (12:00)
[2021-11-15] MEDS ORDERED: SODIUM CHL 0.9% 1000 ML BAG XX ONE (12:30)
[2021-11-15 16:08] LABS: Band Neutrophils % (manual) 18; Lymphocytes % (manual) 6 (10.0-50.0); Metamyelocytes % 2; Monocytes % (manual) 10 (0-12); Myelocytes % 2
[2021-11-15] MEDS ORDERED: ALBUMIN 5% 250 ML IV ONE (20:45)
[2021-11-15] MEDS: CARVEDILOL 3.125 MG TAB PO SCH (22:07)
[2021-11-16 05:53] VITALS: BP 114/62
[2021-11-16] MEDS: SODIUM CHLOR 0.9% PF (SALINE LOCK) 10ML VIAL/SYR IV SCH ×3 (05:57→21:54)
[2021-11-16] MEDS: LEVOTHYROXINE SODIUM 25 MCG TAB PO SCH (05:57)
[2021-11-16] MEDS: metroNIDAZOLE 500MG/100ML 100 ML IV SCH ×3 (05:57→21:53)
[2021-11-16] MEDS: ACCU-CHEK COMFORT CURVE STRIP VI SCH ×4 (05:57→21:56)
[2021-11-16] MEDS: InsuLIN REG 1unit/0.01ml Soln (100units/ml) SC SCH ×4 (06:23→21:55)
[2021-11-16] MEDS ORDERED: METOPROLOL TARTRATE 1MG/1ML-5ML VIAL IV PRN (07:30)
[2021-11-16 07:47] LABS: BUN/Creatinine Ratio 25.9; Calcium 7.9 mg/dL (8.5-10.1); Potassium 3.9 mmol/L (3.5-5.1)
[2021-11-16 09:00] VITALS: BP 119/54
[2021-11-16] MEDS: ASPirin 81 mg TAB PO SCH (09:28)
[2021-11-16] MEDS: FAMOTIDINE (10MG/ML) 2ML VL IV SCH (09:28)
[2021-11-16] MEDS: CLOPIDOGREL BISULFATE 75 MG TAB PO SCH (09:28)
[2021-11-16] MEDS: CARVEDILOL 3.125 MG TAB PO SCH ×3 (10:11→23:45)
[2021-11-16] MEDS ORDERED: VANCOMYCIN 1GM/250ML 250 ML IV SCH (12:00)
[2021-11-16 13:00] VITALS: BP 118/61
[2021-11-16] MEDS ORDERED: FUROSEMIDE 40 MG/4 ML VIAL IV ONE (14:30)
[2021-11-16] MEDS: SODIUM CHLORIDE 0.9% 1,000 ML IV SCH (15:28)
[2021-11-16 16:49] LABS: INR 1.15 (0.9-1.15); Partial Thromboplastin Time 39.8 sec (24.6-33.4)
[2021-11-16 17:00] VITALS: BP 116/64
[2021-11-16 20:00] VITALS: BP 104/49
[2021-11-16] MEDS ORDERED: HEPARIN DRIP/D5W 100UNITS/ML 250 ML IV SCH ×2 (20:00→22:00)
[2021-11-16 22:00] VITALS: BP 104/49
[2021-11-16 22:03] LABS: Basophils # (auto) 0 10 ^3/uL (0-0.2); Basophils % (auto) 0.2 % (0.0-2.0); Eosinophils # (auto) 0.1 10 ^3/uL (0-0.8); Eosinophils % (auto) 1.3 % (0.0-7.0); Hematocrit 36.7 % (41.0-53.0); Hemoglobin 12.1 g/dL (13.5-17.5); Lymphocytes # (auto) 1.2 10 ^3/uL (0.4-5.4); Lymphocytes % (auto) 10.3 % (10.0-50.0); Mean Corpuscular Hemoglobin 30.8 pg (28.0-32.0); Mean Corpuscular Volume 93.6 fL (80.0-100.0); Monocytes # (auto) 1.5 10 ^3/uL (0-1.3); Monocytes % (auto) 13.4 % (0.0-12.0); Neutrophils # (auto) 8.4 10 ^3/uL (1.6-8.6); Neutrophils % (auto) 74.8 % (37.0-80.0); Nucleated Red Blood Cells % 0.1 %; Red Blood Cells 3.92 10^6/uL (4.5-5.90); Red Cell Distribution Width 14.3 % (11.8-14.3); White Blood Cell 11.2 10^3/uL (4.4-10.8)
[2021-11-17] MEDS: SODIUM CHLORIDE 0.9% 1,000 ML IV SCH ×2 (00:30→14:37)
[2021-11-17 05:00] VITALS: BP 133/60
[2021-11-17] MEDS: ACCU-CHEK COMFORT CURVE STRIP VI SCH ×4 (06:04→22:28)
[2021-11-17] MEDS: SODIUM CHLOR 0.9% PF (SALINE LOCK) 10ML VIAL/SYR IV SCH ×3 (06:04→22:27)
[2021-11-17] MEDS: metroNIDAZOLE 500MG/100ML 100 ML IV SCH ×3 (06:07→22:27)
[2021-11-17] MEDS: LEVOTHYROXINE SODIUM 25 MCG TAB PO SCH (06:07)
[2021-11-17] MEDS: InsuLIN REG 1unit/0.01ml Soln (100units/ml) SC SCH ×4 (06:22→22:31)
[2021-11-17 07:03] LABS: Hemoglobin 12.1 g/dL (13.5-17.5); Mean Corpuscular Hemoglobin 30.6 pg (28.0-32.0); Mean Corpuscular Hgb Conc. 32.7 g/dL (32.0-36.0); Mean Corpuscular Volume 93.7 fL (80.0-100.0); Red Blood Cells 3.95 10^6/uL (4.5-5.90); White Blood Cell 12.9 10^3/uL (4.4-10.8)
[2021-11-17 07:09] LABS: Basophils % (manual) 0 (0.0-2.0); Blast Cells 0; Myelocytes % 0; Reactive Lymphocytes 0
[2021-11-17] MEDS ORDERED: HEPARIN DRIP/D5W 100UNITS/ML 250 ML IV SCH ×2 (08:10→17:00)
[2021-11-17 08:27] LABS: Band Neutrophils % (manual) 18; Eosinophils % (manual) 2 (0-7); Lymphocytes % (manual) 18 (10.0-50.0); Metamyelocytes % 3; Monocytes % (manual) 14 (0-12); Promyelocytes % 1
[2021-11-17] MEDS: CLOPIDOGREL BISULFATE 75 MG TAB PO SCH (09:46)
[2021-11-17] MEDS: ASPirin 81 mg TAB PO SCH (09:46)
[2021-11-17] MEDS: CARVEDILOL 3.125 MG TAB PO SCH ×2 (09:47→22:28)
[2021-11-17 13:00] VITALS: BP 112/65
[2021-11-17 16:47] LABS: INR 1.18 (0.9-1.15)
[2021-11-17 16:50] LABS: Partial Thromboplastin Time 89.7 sec (24.6-33.4)
[2021-11-17 17:00] VITALS: BP 114/67
[2021-11-17 22:00] VITALS: BP 104/48
[2021-11-17 23:58] LABS: INR 1.2 (0.9-1.15)
[2021-11-18] MEDS: SODIUM CHLORIDE 0.9% 1,000 ML IV SCH ×3 (01:28→15:52)
[2021-11-18 05:00] VITALS: BP 107/57
[2021-11-18] MEDS: metroNIDAZOLE 500MG/100ML 100 ML IV SCH ×3 (06:03→21:50)
[2021-11-18] MEDS: InsuLIN REG 1unit/0.01ml Soln (100units/ml) SC SCH ×4 (06:04→21:49)
[2021-11-18] MEDS: SODIUM CHLOR 0.9% PF (SALINE LOCK) 10ML VIAL/SYR IV SCH ×3 (06:04→21:50)
[2021-11-18] MEDS: LEVOTHYROXINE SODIUM 25 MCG TAB PO SCH (06:04)
[2021-11-18] MEDS: ACCU-CHEK COMFORT CURVE STRIP VI SCH ×4 (06:04→21:50)
[2021-11-18] MEDS: HYDROcodone-ACET 5/325MG TAB PO PRN (06:11)
[2021-11-18 07:39] LABS: INR 1.23 (0.9-1.15)
[2021-11-18 08:13] LABS: Partial Thromboplastin Time 77.7 sec (24.6-33.4)
[2021-11-18] MEDS ORDERED: HEPARIN DRIP/D5W 100UNITS/ML 250 ML IV SCH (09:00)
[2021-11-18 09:07] VITALS: BP 105/56
[2021-11-18] MEDS: CLOPIDOGREL BISULFATE 75 MG TAB PO SCH (09:27)
[2021-11-18] MEDS: ASPirin 81 mg TAB PO SCH (09:27)
[2021-11-18] MEDS: FAMOTIDINE (10MG/ML) 2ML VL IV SCH (09:27)
[2021-11-18] MEDS: CARVEDILOL 3.125 MG TAB PO SCH ×2 (09:28→21:49)
[2021-11-18 13:00] VITALS: BP 106/56
[2021-11-18 15:46] LABS: INR 1.22 (0.9-1.15); Partial Thromboplastin Time 62.4 sec (24.6-33.4)
[2021-11-18 15:52] LABS: Basophils # (auto) 0.1 10 ^3/uL (0-0.2); Basophils % (auto) 0.4 % (0.0-2.0); Eosinophils # (auto) 0.2 10 ^3/uL (0-0.8); Eosinophils % (auto) 1.4 % (0.0-7.0); Hematocrit 34.4 % (41.0-53.0); Hemoglobin 11.1 g/dL (13.5-17.5); Lymphocytes # (auto) 1.8 10 ^3/uL (0.4-5.4); Lymphocytes % (auto) 11.6 % (10.0-50.0); Mean Corpuscular Hemoglobin 30.4 pg (28.0-32.0); Mean Corpuscular Hgb Conc. 32.3 g/dL (32.0-36.0); Monocytes # (auto) 1.4 10 ^3/uL (0-1.3); Monocytes % (auto) 9.1 % (0.0-12.0); Neutrophils % (auto) 77.5 % (37.0-80.0); Nucleated Red Blood Cells % 0.1 %; Red Blood Cells 3.66 10^6/uL (4.5-5.90); Red Cell Distribution Width 14.3 % (11.8-14.3); White Blood Cell 15.5 10^3/uL (4.4-10.8)
[2021-11-18 16:55] VITALS: BP 119/57
[2021-11-18 22:00] VITALS: BP 108/75
[2021-11-19 01:57] LABS: Basophils # (auto) 0 10 ^3/uL (0-0.2); Basophils % (auto) 0.2 % (0.0-2.0); Eosinophils # (auto) 0.3 10 ^3/uL (0-0.8); Eosinophils % (auto) 1.5 % (0.0-7.0); Hematocrit 34.2 % (41.0-53.0); Hemoglobin 11.4 g/dL (13.5-17.5); Lymphocytes # (auto) 1.8 10 ^3/uL (0.4-5.4); Lymphocytes % (auto) 10.6 % (10.0-50.0); Mean Corpuscular Hemoglobin 31.5 pg (28.0-32.0); Mean Corpuscular Hgb Conc. 33.4 g/dL (32.0-36.0); Mean Corpuscular Volume 94.3 fL (80.0-100.0); Monocytes # (auto) 2.1 10 ^3/uL (0-1.3); Monocytes % (auto) 12.1 % (0.0-12.0); Neutrophils # (auto) 13.1 10 ^3/uL (1.6-8.6); Neutrophils % (auto) 75.6 % (37.0-80.0); Nucleated Red Blood Cells % 0.1 %; Red Blood Cells 3.62 10^6/uL (4.5-5.90); White Blood Cell 17.3 10^3/uL (4.4-10.8)
[2021-11-19] MEDS: SODIUM CHLORIDE 0.9% 1,000 ML IV SCH ×2 (02:30→12:45)
[2021-11-19 05:29] VITALS: BP 150/83
[2021-11-19] MEDS: metroNIDAZOLE 500MG/100ML 100 ML IV SCH ×3 (06:18→21:22)
[2021-11-19] MEDS: InsuLIN REG 1unit/0.01ml Soln (100units/ml) SC SCH ×4 (06:19→21:28)
[2021-11-19] MEDS: ACCU-CHEK COMFORT CURVE STRIP VI SCH ×4 (06:19→21:22)
[2021-11-19] MEDS: LEVOTHYROXINE SODIUM 25 MCG TAB PO SCH (06:19)
[2021-11-19] MEDS: SODIUM CHLOR 0.9% PF (SALINE LOCK) 10ML VIAL/SYR IV SCH ×3 (06:19→21:22)
[2021-11-19 06:29] LABS: Hemoglobin 11.3 g/dL (13.5-17.5); Mean Corpuscular Hemoglobin 31.1 pg (28.0-32.0); Mean Corpuscular Hgb Conc. 33.2 g/dL (32.0-36.0); Mean Corpuscular Volume 93.6 fL (80.0-100.0); Red Blood Cells 3.63 10^6/uL (4.5-5.90); Red Cell Distribution Width 14.2 % (11.8-14.3); White Blood Cell 15.2 10^3/uL (4.4-10.8)
[2021-11-19 06:51] LABS: BUN/Creatinine Ratio 31.1; Calcium 7.4 mg/dL (8.5-10.1); Potassium 3.5 mmol/L (3.5-5.1)
[2021-11-19 07:02] LABS: Basophils % (manual) 0 (0.0-2.0); Blast Cells 0; Eosinophils % (manual) 0 (0-7); Promyelocytes % 0; Reactive Lymphocytes 0
[2021-11-19 08:14] LABS: Band Neutrophils % (manual) 5; Lymphocytes % (manual) 18 (10.0-50.0); Metamyelocytes % 1; Monocytes % (manual) 10 (0-12); Myelocytes % 1
[2021-11-19 09:00] VITALS: BP 119/59
[2021-11-19 10:06] VITALS: BP 119/59
[2021-11-19] MEDS: ASPirin 325 MG TAB PO SCH (10:15)
[2021-11-19] MEDS: CARVEDILOL 3.125 MG TAB PO SCH ×2 (10:16→21:37)
[2021-11-19] MEDS: CLOPIDOGREL BISULFATE 75 MG TAB PO SCH (10:17)
[2021-11-19 13:00] VITALS: BP 135/68
[2021-11-19 17:07] VITALS: BP 132/64
[2021-11-19 21:41] VITALS: BP 147/72
[2021-11-20] MEDS: SODIUM CHLORIDE 0.9% 1,000 ML IV SCH ×3 (00:15→18:39)
[2021-11-20 04:41] VITALS: BP 157/83
[2021-11-20 06:54] LABS: BUN/Creatinine Ratio 23.9; Calcium 7.4 mg/dL (8.5-10.1); Potassium 3.6 mmol/L (3.5-5.1)
[2021-11-20] MEDS: InsuLIN REG 1unit/0.01ml Soln (100units/ml) SC SCH ×4 (07:00→21:55)
[2021-11-20] MEDS: LEVOTHYROXINE SODIUM 25 MCG TAB PO SCH (07:10)
[2021-11-20] MEDS: SODIUM CHLOR 0.9% PF (SALINE LOCK) 10ML VIAL/SYR IV SCH ×3 (07:10→21:55)
[2021-11-20] MEDS: metroNIDAZOLE 500MG/100ML 100 ML IV SCH ×3 (07:10→21:54)
[2021-11-20] MEDS: ACCU-CHEK COMFORT CURVE STRIP VI SCH ×4 (07:10→21:55)
[2021-11-20] MEDS ORDERED: ADENOSINE 80 MG in GIVE UN-DILUTED 0 ML IV ONE (08:30)
[2021-11-20 09:00] VITALS: BP 148/83
[2021-11-20] MEDS: FAMOTIDINE (10MG/ML) 2ML VL IV SCH (10:19)
[2021-11-20] MEDS: CLOPIDOGREL BISULFATE 75 MG TAB PO SCH (10:20)
[2021-11-20] MEDS: CARVEDILOL 3.125 MG TAB PO SCH ×2 (10:20→21:54)
[2021-11-20] MEDS: ASPirin 325 MG TAB PO SCH (10:20)
[2021-11-20 13:00] VITALS: BP 127/66
[2021-11-20 17:00] VITALS: BP 152/81
[2021-11-20 22:00] VITALS: BP 150/68
[2021-11-21] MEDS: HYDROcodone-ACET 5/325MG TAB PO PRN (00:59)
[2021-11-21] MEDS: SODIUM CHLORIDE 0.9% 1,000 ML IV SCH ×2 (04:30→15:08)
[2021-11-21 05:00] VITALS: BP 146/81
[2021-11-21] MEDS: metroNIDAZOLE 500MG/100ML 100 ML IV SCH ×3 (05:11→15:07)
[2021-11-21] MEDS: SODIUM CHLOR 0.9% PF (SALINE LOCK) 10ML VIAL/SYR IV SCH ×3 (05:13→21:42)
[2021-11-21] MEDS: InsuLIN REG 1unit/0.01ml Soln (100units/ml) SC SCH ×4 (06:33→21:56)
[2021-11-21] MEDS: LEVOTHYROXINE SODIUM 25 MCG TAB PO SCH (06:33)
[2021-11-21] MEDS: ACCU-CHEK COMFORT CURVE STRIP VI SCH ×4 (06:33→21:54)
[2021-11-21] MEDS: ASPirin 325 MG TAB PO SCH (08:51)
[2021-11-21] MEDS: CLOPIDOGREL BISULFATE 75 MG TAB PO SCH (08:51)
[2021-11-21] MEDS: CARVEDILOL 3.125 MG TAB PO SCH ×2 (08:51→21:44)
[2021-11-21 09:00] VITALS: BP 150/79
[2021-11-21 13:00] VITALS: BP 139/72
[2021-11-21 17:00] VITALS: BP 138/72
[2021-11-21 22:00] VITALS: BP 152/71
[2021-11-22 05:00] VITALS: BP 146/75
[2021-11-22] MEDS: metroNIDAZOLE 500MG/100ML 100 ML IV SCH ×3 (05:04→21:33)
[2021-11-22] MEDS: SODIUM CHLOR 0.9% PF (SALINE LOCK) 10ML VIAL/SYR IV SCH ×3 (05:05→21:33)
[2021-11-22] MEDS: LEVOTHYROXINE SODIUM 25 MCG TAB PO SCH (05:58)
[2021-11-22] MEDS: ACCU-CHEK COMFORT CURVE STRIP VI SCH ×4 (06:03→21:23)
[2021-11-22] MEDS: InsuLIN REG 1unit/0.01ml Soln (100units/ml) SC SCH ×4 (06:03→21:30)
[2021-11-22] MEDS: ASPirin 325 MG TAB PO SCH (08:42)
[2021-11-22] MEDS: FAMOTIDINE (10MG/ML) 2ML VL IV SCH (08:42)
[2021-11-22] MEDS: CLOPIDOGREL BISULFATE 75 MG TAB PO SCH (08:42)
[2021-11-22] MEDS: CARVEDILOL 3.125 MG TAB PO SCH ×2 (08:44→21:38)
[2021-11-22 09:00] VITALS: BP 151/74
[2021-11-22 12:54] VITALS: BP 142/68
[2021-11-22 16:50] VITALS: BP 131/73
[2021-11-22 21:30] VITALS: BP 157/80
[2021-11-22 23:29] LABS: Basophils # (auto) 0.3 10 ^3/uL (0-0.2); Basophils % (auto) 2.1 % (0.0-2.0); Eosinophils # (auto) 0.2 10 ^3/uL (0-0.8); Eosinophils % (auto) 1.6 % (0.0-7.0); Hematocrit 34.4 % (41.0-53.0); Hemoglobin 11.3 g/dL (13.5-17.5); Lymphocytes # (auto) 1.1 10 ^3/uL (0.4-5.4); Lymphocytes % (auto) 7.7 % (10.0-50.0); Mean Corpuscular Hemoglobin 30.7 pg (28.0-32.0); Mean Corpuscular Volume 93.1 fL (80.0-100.0); Monocytes # (auto) 1.3 10 ^3/uL (0-1.3); Monocytes % (auto) 9.4 % (0.0-12.0); Neutrophils # (auto) 11.2 10 ^3/uL (1.6-8.6); Neutrophils % (auto) 79.2 % (37.0-80.0); Red Blood Cells 3.69 10^6/uL (4.5-5.90); White Blood Cell 14.1 10^3/uL (4.4-10.8)
[2021-11-22 23:39] LABS: INR 1.19 (0.9-1.15); Partial Thromboplastin Time 27.6 sec (24.6-33.4)
[2021-11-23] VITALS (7 sets, daily range): BP systolic 116–155; BP diastolic 54–93
[2021-11-23 01:19] LABS: Alanine Aminotransferase 12 U/L (16-61); Albumin 1.8 g/dL (3.4-5.0); Anion Gap 9 (5-15); Aspartate Aminotransferase 19 U/L (15-37); BUN/Creatinine Ratio 13.5; Blood Urea Nitrogen 14 mg/dL (7-18); Calcium 7.4 mg/dL (8.5-10.1); Carbon Dioxide 18 mmol/L (21-32); Chloride 119 mmol/L (98-107); GFR African American 91 mL/min; GFR Non-African American 75 mL/min; Glucose 147 mg/dL (74-106); Potassium 3.8 mmol/L (3.5-5.1); Sodium 146 mmol/L (136-145)
[2021-11-23 01:21] LABS: Alkaline Phosphatase 78 U/L (45-117); Bilirubin, Total 0.3 mg/dL (0.2-1.0); Total Protein 5.7 g/dL (6.4-8.2)
[2021-11-23] MEDS: metroNIDAZOLE 500MG/100ML 100 ML IV SCH ×3 (05:01→21:18)
[2021-11-23] MEDS: SODIUM CHLOR 0.9% PF (SALINE LOCK) 10ML VIAL/SYR IV SCH ×3 (05:01→21:28)
[2021-11-23] MEDS: LEVOTHYROXINE SODIUM 25 MCG TAB PO SCH (05:59)
[2021-11-23] MEDS: ACCU-CHEK COMFORT CURVE STRIP VI SCH ×4 (06:00→21:19)
[2021-11-23] MEDS: InsuLIN REG 1unit/0.01ml Soln (100units/ml) SC SCH ×4 (06:00→21:19)
[2021-11-23] MEDS ORDERED: METOPROLOL SUCCINATE XL 50 MG TAB PO ONE (09:30)
[2021-11-23] MEDS: ASPirin 325 MG TAB PO SCH (09:57)
[2021-11-23] MEDS: AMIODARONE HCL 200 MG TAB PO SCH ×2 (09:58→21:17)
[2021-11-23] MEDS: CARVEDILOL 3.125 MG TAB PO SCH ×2 (09:58→21:17)
[2021-11-23] MEDS: CLOPIDOGREL BISULFATE 75 MG TAB PO SCH (09:58)
[2021-11-24] VITALS (7 sets, daily range): BP systolic 114–143; BP diastolic 58–80
[2021-11-24] MEDS: metroNIDAZOLE 500MG/100ML 100 ML IV SCH (06:35)
[2021-11-24] MEDS: LEVOTHYROXINE SODIUM 25 MCG TAB PO SCH (06:35)
[2021-11-24] MEDS: SODIUM CHLOR 0.9% PF (SALINE LOCK) 10ML VIAL/SYR IV SCH ×3 (06:36→22:00)
[2021-11-24] MEDS: ACCU-CHEK COMFORT CURVE STRIP VI SCH ×4 (06:36→22:02)
[2021-11-24] MEDS: InsuLIN REG 1unit/0.01ml Soln (100units/ml) SC SCH ×4 (06:40→22:03)
[2021-11-24] MEDS: ASPirin 325 MG TAB PO SCH (10:29)
[2021-11-24] MEDS: CARVEDILOL 3.125 MG TAB PO SCH ×2 (10:30→22:01)
[2021-11-24] MEDS: AMIODARONE HCL 200 MG TAB PO SCH ×2 (10:31→22:00)
[2021-11-24] MEDS: CLOPIDOGREL BISULFATE 75 MG TAB PO SCH (10:31)
[2021-11-24] MEDS: FAMOTIDINE (10MG/ML) 2ML VL IV SCH (10:31)
[2021-11-24] MEDS ORDERED: IPRATROPIUM BROM 0.5 MG/2.5ML INH SOL NEB PRN (12:00)
[2021-11-24] MEDS ORDERED: ALBUTEROL SULF 2.5 MG/0.5ML(0.5%) NEB SOLN NEB PRN (12:00)
[2021-11-24] MEDS: ACETAMINOPHEN 325 MG TAB PO PRN (12:03)
[2021-11-24 14:06] LABS: Hematocrit 34.6 % (41.0-53.0); Hemoglobin 11.4 g/dL (13.5-17.5); Mean Corpuscular Hemoglobin 30.9 pg (28.0-32.0); Mean Corpuscular Hgb Conc. 32.9 g/dL (32.0-36.0); Red Blood Cells 3.68 10^6/uL (4.5-5.90); Red Cell Distribution Width 14.8 % (11.8-14.3); White Blood Cell 11.3 10^3/uL (4.4-10.8)
[2021-11-24 14:21] LABS: Basophils % (manual) 0 (0.0-2.0); Blast Cells 0; Eosinophils % (manual) 0 (0-7); Metamyelocytes % 0; Myelocytes % 0; Promyelocytes % 0; Reactive Lymphocytes 0
[2021-11-24 15:18] LABS: Urine Bacteria FEW /hpf (None Seen); Urine Blood 1+ /uL (Negative); Urine Hyaline Cast MOD /lpf (0 - 2); Urine Mucus FEW (None Seen); Urine Specific Gravity 1.028 (1.001-1.035); Urine WBC 4 /hpf (0 - 3)
[2021-11-24 16:10] LABS: Band Neutrophils % (manual) 9; Lymphocytes % (manual) 8 (10.0-50.0); Monocytes % (manual) 6 (0-12)
[2021-11-25] VITALS (10 sets, daily range): BP systolic 106–132; BP diastolic 53–72
[2021-11-25] MEDS: SODIUM CHLOR 0.9% PF (SALINE LOCK) 10ML VIAL/SYR IV SCH ×3 (05:20→22:00)
[2021-11-25] MEDS: LEVOTHYROXINE SODIUM 25 MCG TAB PO SCH (06:23)
[2021-11-25] MEDS: ACCU-CHEK COMFORT CURVE STRIP VI SCH ×3 (06:23→22:00)
[2021-11-25] MEDS: InsuLIN REG 1unit/0.01ml Soln (100units/ml) SC SCH ×4 (06:23→22:00)
[2021-11-25] MEDS ORDERED: AZITHROMYCIN 500MG/ 250ML 250 ML IV SCH (10:00)
[2021-11-25] MEDS: ASPirin 325 MG TAB PO SCH (10:07)
[2021-11-25] MEDS: AMIODARONE HCL 200 MG TAB PO SCH ×2 (10:09→22:00)
[2021-11-25] MEDS: CARVEDILOL 3.125 MG TAB PO SCH ×2 (10:10→22:00)
[2021-11-25] MEDS: CLOPIDOGREL BISULFATE 75 MG TAB PO SCH (10:10)
[2021-11-25 13:12] LABS: Basophils # (auto) 0.1 10 ^3/uL (0-0.2); Basophils % (auto) 0.6 % (0.0-2.0); Eosinophils # (auto) 0.1 10 ^3/uL (0-0.8); Hematocrit 32.4 % (41.0-53.0); Hemoglobin 10.5 g/dL (13.5-17.5); Lymphocytes # (auto) 1.6 10 ^3/uL (0.4-5.4); Lymphocytes % (auto) 13.7 % (10.0-50.0); Mean Corpuscular Hemoglobin 30.3 pg (28.0-32.0); Mean Corpuscular Hgb Conc. 32.5 g/dL (32.0-36.0); Mean Corpuscular Volume 93.2 fL (80.0-100.0); Monocytes # (auto) 1.4 10 ^3/uL (0-1.3); Monocytes % (auto) 12.6 % (0.0-12.0); Neutrophils # (auto) 8.1 10 ^3/uL (1.6-8.6); Neutrophils % (auto) 72.1 % (37.0-80.0); Nucleated Red Blood Cells % 0.2 %; Red Blood Cells 3.47 10^6/uL (4.5-5.90); Red Cell Distribution Width 14.4 % (11.8-14.3); White Blood Cell 11.3 10^3/uL (4.4-10.8)
[2021-11-25] MEDS ORDERED: IODIXANOL 320MG/ML 100ML BTL IV ONE (13:53)
[2021-11-25] MEDS ORDERED: LIDOCAINE 2%HCL (LOCAL ANESTH.) INJ 20ML MDV ONE (13:54)
[2021-11-25] MEDS ORDERED: fentaNYL CITRATE 100 MCG/2 ML VL ONE (14:13)
[2021-11-25] MEDS ORDERED: SODIUM CHL 0.9% 50 ML ONE (14:13)
[2021-11-25] MEDS ORDERED: MIDAZOLAM HCL 2MG/2ML 2ml VIAL (1mg/ml) ONE (14:13)
[2021-11-25] MEDS ORDERED: ANGIOMAX 250 MG VIAL IV ONE (14:13)
[2021-11-25 14:58] LABS: BUN/Creatinine Ratio 15.1; Calcium 7.6 mg/dL (8.5-10.1); Potassium 3.6 mmol/L (3.5-5.1)
[2021-11-26 05:00] VITALS: BP 122/59
[2021-11-26] MEDS: ACCU-CHEK COMFORT CURVE STRIP VI SCH ×4 (06:29→22:39)
[2021-11-26] MEDS: SODIUM CHLOR 0.9% PF (SALINE LOCK) 10ML VIAL/SYR IV SCH ×3 (06:29→22:39)
[2021-11-26] MEDS: LEVOTHYROXINE SODIUM 25 MCG TAB PO SCH (06:29)
[2021-11-26] MEDS: InsuLIN REG 1unit/0.01ml Soln (100units/ml) SC SCH ×4 (06:29→22:37)
[2021-11-26 09:00] VITALS: BP 116/65
[2021-11-26] MEDS: CLOPIDOGREL BISULFATE 75 MG TAB PO SCH (09:39)
[2021-11-26] MEDS: AMIODARONE HCL 200 MG TAB PO SCH ×2 (09:39→22:38)
[2021-11-26] MEDS: levoFLOXacin 500MG 100 ML IV SCH (09:40)
[2021-11-26] MEDS: FAMOTIDINE (10MG/ML) 2ML VL IV SCH (09:40)
[2021-11-26] MEDS: ASPirin 325 MG TAB PO SCH (09:40)
[2021-11-26] MEDS: CARVEDILOL 3.125 MG TAB PO SCH ×2 (09:42→22:00)
[2021-11-26] MEDS: SODIUM CHLORIDE 0.9% 1,000 ML IV SCH (09:51)
[2021-11-26 13:00] VITALS: BP 100/64
[2021-11-26 16:44] VITALS: BP 126/51
[2021-11-26 22:00] VITALS: BP 100/58
[2021-11-27 05:00] VITALS: BP 126/63
[2021-11-27] MEDS: SODIUM CHLOR 0.9% PF (SALINE LOCK) 10ML VIAL/SYR IV SCH ×3 (06:34→21:33)
[2021-11-27] MEDS: LEVOTHYROXINE SODIUM 25 MCG TAB PO SCH (06:35)
[2021-11-27] MEDS: InsuLIN REG 1unit/0.01ml Soln (100units/ml) SC SCH ×4 (06:35→21:38)
[2021-11-27] MEDS: ACCU-CHEK COMFORT CURVE STRIP VI SCH ×4 (06:35→21:38)
[2021-11-27] MEDS: SODIUM CHLORIDE 0.9% 1,000 ML IV SCH (08:00)
[2021-11-27 09:11] VITALS: BP 115/69
[2021-11-27] MEDS: ASPirin 325 MG TAB PO SCH (10:43)
[2021-11-27] MEDS: AMIODARONE HCL 200 MG TAB PO SCH ×2 (10:43→21:32)
[2021-11-27] MEDS: levoFLOXacin 500MG 100 ML IV SCH (10:44)
[2021-11-27] MEDS: CLOPIDOGREL BISULFATE 75 MG TAB PO SCH (10:44)
[2021-11-27] MEDS: CARVEDILOL 3.125 MG TAB PO SCH ×2 (10:44→21:33)
[2021-11-27 12:41] VITALS: BP 119/66
[2021-11-27] MEDS ORDERED: CEFEPIME 2 GM in SODIUM CHL 0.9% 50 ML IV ONE (13:30)
[2021-11-27 16:30] VITALS: BP 136/76
[2021-11-27] MEDS: FUROSEMIDE INJECTION 100 MG in D5W 5% 100 ML IV SCH (17:36)
[2021-11-27] MEDS: POTASSIUM CHL 20 Meq TABLET PO SCH (21:38)
[2021-11-27] MEDS: CEFEPIME 2 GM in SODIUM CHL 0.9% 50 ML IV SCH (21:51)
[2021-11-27 22:00] VITALS: BP 152/75
[2021-11-28] MEDS: FUROSEMIDE INJECTION 100 MG in D5W 5% 100 ML IV SCH ×7 (00:05→21:14)
[2021-11-28 05:00] VITALS: BP 113/52
[2021-11-28] MEDS: SODIUM CHLOR 0.9% PF (SALINE LOCK) 10ML VIAL/SYR IV SCH ×3 (05:28→21:11)
[2021-11-28] MEDS: InsuLIN REG 1unit/0.01ml Soln (100units/ml) SC SCH ×4 (05:28→21:04)
[2021-11-28] MEDS: ACCU-CHEK COMFORT CURVE STRIP VI SCH ×4 (05:28→21:13)
[2021-11-28 06:10] LABS: Albumin 1.7 g/dL (3.4-5.0); Calcium 7.6 mg/dL (8.5-10.1); Potassium 4.1 mmol/L (3.5-5.1)
[2021-11-28 06:13] LABS: BUN/Creatinine Ratio 16.7; Bilirubin, Total 0.3 mg/dL (0.2-1.0); Total Protein 5.9 g/dL (6.4-8.2)
[2021-11-28] MEDS: LEVOTHYROXINE SODIUM 25 MCG TAB PO SCH (07:01)
[2021-11-28 08:40] VITALS: BP 142/78
[2021-11-28] MEDS: ASPirin 325 MG TAB PO SCH (11:05)
[2021-11-28] MEDS: CARVEDILOL 3.125 MG TAB PO SCH ×2 (11:06→21:13)
[2021-11-28] MEDS: AMIODARONE HCL 200 MG TAB PO SCH ×2 (11:06→21:12)
[2021-11-28] MEDS: CLOPIDOGREL BISULFATE 75 MG TAB PO SCH (11:07)
[2021-11-28] MEDS: POTASSIUM CHL 20 Meq TABLET PO SCH (11:07)
[2021-11-28] MEDS: CEFEPIME 2 GM in SODIUM CHL 0.9% 50 ML IV SCH ×2 (11:07→21:11)
[2021-11-28 12:30] VITALS: BP 142/74
[2021-11-28] MEDS: ALBUMIN 25% 100 ML IV SCH (16:18)
[2021-11-28 16:40] VITALS: BP 134/78
[2021-11-28] MEDS: FUROSEMIDE 40 MG/4 ML VIAL IV SCH (17:41)
[2021-11-28 22:00] VITALS: BP 126/81
[2021-11-29] MEDS: ALBUMIN 25% 100 ML IV SCH ×2 (00:10→08:01)
[2021-11-29] MEDS: FUROSEMIDE INJECTION 100 MG in D5W 5% 100 ML IV SCH ×2 (01:45→06:51)
[2021-11-29 05:00] VITALS: BP 133/70
[2021-11-29] MEDS: FUROSEMIDE 40 MG/4 ML VIAL IV SCH (06:17)
[2021-11-29] MEDS: SODIUM CHLOR 0.9% PF (SALINE LOCK) 10ML VIAL/SYR IV SCH ×3 (06:18→21:38)
[2021-11-29] MEDS: LEVOTHYROXINE SODIUM 25 MCG TAB PO SCH (06:18)
[2021-11-29] MEDS: ACCU-CHEK COMFORT CURVE STRIP VI SCH ×4 (06:18→21:39)
[2021-11-29] MEDS: InsuLIN REG 1unit/0.01ml Soln (100units/ml) SC SCH ×4 (06:27→21:39)
[2021-11-29 06:49] LABS: Potassium 3.9 mmol/L (3.5-5.1)
[2021-11-29 06:56] LABS: Albumin 2.8 g/dL (3.4-5.0); BUN/Creatinine Ratio 13.7; Bilirubin, Total 0.7 mg/dL (0.2-1.0); Calcium 8.2 mg/dL (8.5-10.1); Magnesium 1.9 mg/dL (1.6-2.6); Total Protein 6.1 g/dL (6.4-8.2)
[2021-11-29 09:00] VITALS: BP 130/68
[2021-11-29] MEDS: CEFEPIME 2 GM in SODIUM CHL 0.9% 50 ML IV SCH ×2 (11:22→21:37)
[2021-11-29] MEDS: AMIODARONE HCL 200 MG TAB PO SCH ×2 (11:23→21:38)
[2021-11-29] MEDS: ASPirin 325 MG TAB PO SCH (11:23)
[2021-11-29] MEDS: CLOPIDOGREL BISULFATE 75 MG TAB PO SCH (11:24)
[2021-11-29] MEDS: CARVEDILOL 3.125 MG TAB PO SCH ×2 (11:24→21:39)
[2021-11-29] MEDS ORDERED: ALBUMIN 25% 100 ML IV ONE (12:14)
[2021-11-29] MEDS: POTASSIUM CHL 20 Meq TABLET PO SCH ×2 (12:44→21:39)
[2021-11-29] MEDS: MAGNESIUM SULFATE 1GM/100ML 100 ML IV SCH ×2 (12:44→14:26)
[2021-11-29 13:00] VITALS: BP 133/69
[2021-11-29 17:00] VITALS: BP 124/64
[2021-11-29 22:00] VITALS: BP 127/67
[2021-11-30 05:00] VITALS: BP 140/69
[2021-11-30] MEDS: InsuLIN REG 1unit/0.01ml Soln (100units/ml) SC SCH ×4 (05:35→22:56)
[2021-11-30] MEDS: SODIUM CHLOR 0.9% PF (SALINE LOCK) 10ML VIAL/SYR IV SCH ×3 (05:35→22:54)
[2021-11-30] MEDS: ACCU-CHEK COMFORT CURVE STRIP VI SCH ×4 (05:35→22:55)
[2021-11-30] MEDS: LEVOTHYROXINE SODIUM 25 MCG TAB PO SCH (06:35)
[2021-11-30 08:47] VITALS: BP 137/70
[2021-11-30] MEDS: AMIODARONE HCL 200 MG TAB PO SCH ×2 (10:16→22:54)
[2021-11-30] MEDS: POTASSIUM CHL 20 Meq TABLET PO SCH ×2 (10:17→22:55)
[2021-11-30] MEDS: CLOPIDOGREL BISULFATE 75 MG TAB PO SCH (10:18)
[2021-11-30] MEDS: CARVEDILOL 3.125 MG TAB PO SCH ×2 (10:18→22:55)
[2021-11-30] MEDS: ASPirin 325 MG TAB PO SCH (10:18)
[2021-11-30] MEDS: CEFEPIME 2 GM in SODIUM CHL 0.9% 50 ML IV SCH ×2 (10:24→22:54)
[2021-11-30 12:37] VITALS: BP 132/93
[2021-11-30 13:25] LABS: Basophils # (auto) 0.1 10 ^3/uL (0-0.2); Eosinophils # (auto) 0.2 10 ^3/uL (0-0.8); Eosinophils % (auto) 2.1 % (0.0-7.0); Hemoglobin 12.2 g/dL (13.5-17.5); Lymphocytes # (auto) 1.5 10 ^3/uL (0.4-5.4); Lymphocytes % (auto) 18.1 % (10.0-50.0); Mean Corpuscular Hemoglobin 30.6 pg (28.0-32.0); Mean Corpuscular Volume 92.8 fL (80.0-100.0); Monocytes # (auto) 1.3 10 ^3/uL (0-1.3); Monocytes % (auto) 16.1 % (0.0-12.0); Neutrophils # (auto) 5.1 10 ^3/uL (1.6-8.6); Neutrophils % (auto) 62.7 % (37.0-80.0); Nucleated Red Blood Cells % 0.1 %; Red Blood Cells 3.99 10^6/uL (4.5-5.90); Red Cell Distribution Width 14.6 % (11.8-14.3); White Blood Cell 8.1 10^3/uL (4.4-10.8)
[2021-11-30 15:49] LABS: BUN/Creatinine Ratio 14.3; Magnesium 2.2 mg/dL (1.6-2.6); Potassium 5.2 mmol/L (3.5-5.1)
[2021-11-30 16:45] VITALS: BP 132/74
[2021-11-30 22:00] VITALS: BP 129/74
[2021-12-01 05:00] VITALS: BP 129/71
[2021-12-01] MEDS: SODIUM CHLOR 0.9% PF (SALINE LOCK) 10ML VIAL/SYR IV SCH ×2 (05:06→14:00)
[2021-12-01] MEDS: ACCU-CHEK COMFORT CURVE STRIP VI SCH ×3 (06:19→17:00)
[2021-12-01] MEDS: LEVOTHYROXINE SODIUM 25 MCG TAB PO SCH (06:19)
[2021-12-01] MEDS: InsuLIN REG 1unit/0.01ml Soln (100units/ml) SC SCH ×3 (06:19→17:00)
[2021-12-01 09:00] VITALS: BP 113/51
[2021-12-01] MEDS: ASPirin 325 MG TAB PO SCH (09:46)
[2021-12-01] MEDS: CARVEDILOL 3.125 MG TAB PO SCH (09:46)
[2021-12-01] MEDS: CLOPIDOGREL BISULFATE 75 MG TAB PO SCH (09:47)
[2021-12-01] MEDS: AMIODARONE HCL 200 MG TAB PO SCH (09:47)
[2021-12-01] MEDS: POTASSIUM CHL 20 Meq TABLET PO SCH (10:00)
[2021-12-01] MEDS: CEFEPIME 2 GM in SODIUM CHL 0.9% 50 ML IV SCH ×2 (10:09→14:09)
[2021-12-01] MEDS ORDERED: ASPI-717 PO (11:46)
[2021-12-01] MEDS ORDERED: AMIO400T3 PO (11:46)
[2021-12-01] MEDS ORDERED: LEVO500T31 PO (12:05)
[2021-12-01] MEDS ORDERED: PANT40TA2 PO (12:06)
[2021-12-01 13:00] VITALS: BP 108/52
[2021-12-01 17:00] VITALS: BP 116/60
== END 2021-12-01 21:30 | disposition home health service (06) | DRG 871 ==
LOC: ER 20:37 → EDBD 20:37 → TELE 11-13 03:57 → TELE-CENTR 11-13 17:17
PROVIDERS: ADMIT Nurse Practitioner Family; ATTEND Internal Medicine
PROC: 30233N1 Transfusion of Nonautologous Red Blood Cells into Peripheral Vein, Percutaneous Approach (ICD-10-PCS; 2021-11-13)
PROC: 02HV33Z Insertion of Infusion Device into Superior Vena Cava, Percutaneous Approach (ICD-10-PCS; 2021-11-15)
PROC: B548ZZA Ultrasonography of Superior Vena Cava, Guidance (ICD-10-PCS; 2021-11-15)
PROC: B41FYZZ Fluoroscopy of Right Lower Extremity Arteries using Other Contrast (ICD-10-PCS; principal; 2021-11-26)
PROC: B41CYZZ Fluoroscopy of Pelvic Arteries using Other Contrast (ICD-10-PCS; 2021-11-26)
DX: A41.9 Sepsis, unspecified organism (principal); J15.0 Pneumonia due to Klebsiella pneumoniae; J96.01 Acute respiratory failure with hypoxia; N17.0 Acute kidney failure with tubular necrosis; E87.4 Mixed disorder of acid-base balance; I13.0 Hypertensive heart and chronic kidney disease with heart failure and stage 1 through stage 4 chronic kidney disease, or unspecified chronic kidney disease; J98.11 Atelectasis; E03.9 Hypothyroidism, unspecified; E11.22 Type 2 diabetes mellitus with diabetic chronic kidney disease; L89.151 Pressure ulcer of sacral region, stage 1; E78.5 Hyperlipidemia, unspecified; E83.41 Hypermagnesemia; E87.5 Hyperkalemia; I50.9 Heart failure, unspecified; K59.00 Constipation, unspecified; Z68.36 Body mass index [BMI] 36.0-36.9, adult; R79.89 Other specified abnormal findings of blood chemistry; E11.51 Type 2 diabetes mellitus with diabetic peripheral angiopathy without gangrene; G62.9 Polyneuropathy, unspecified; F32.A Depression, unspecified; Z20.822 Contact with and (suspected) exposure to COVID-19; N18.30 Chronic kidney disease, stage 3 unspecified; I25.5 Ischemic cardiomyopathy; E66.9 Obesity, unspecified; Z79.899 Other long term (current) drug therapy; Z82.0 Family history of epilepsy and other diseases of the nervous system; Z82.49 Family history of ischemic heart disease and other diseases of the circulatory system; Z83.3 Family history of diabetes mellitus; Z98.61 Coronary angioplasty status; Z79.82 Long term (current) use of aspirin; Z79.4 Long term (current) use of insulin; Z79.02 Long term (current) use of antithrombotics/antiplatelets; Z86.73 Personal history of transient ischemic attack (TIA), and cerebral infarction without residual deficits; Z88.0 Allergy status to penicillin
CPT/HCPCS: 36415; 36430; 36600; 70450; 71045; 74018; 75710; 75736; 78452; 80048; 80053; 80202; 80307; 81001; 82565; 82805; 82962; 83036; 83605; 83735; 83880; 84132; 84443; 84484; 84520; 85007; 85014; 85018; 85025; 85027; 85379; 85610; 85730; 86850; 86900; 86901; 86920; 87040; 87045; 87077; 87086; 87186; 87427; 87493; 90935; 92610; 93005; 93017; 93971; 94644; 96365; 96375; 99152; C9113; G0378; J0153; J1642; J1815; J1956; J2001; J2250; J2405; J3490; J7060; P9047; Q9967